=== PATIENT | female | born 1985 | race Caucasian/White ===

== ENCOUNTER 2019-11-22 01:35 | Observation (INO) | payer OTHER ==
[~2019-11-22] VITALS: Ht 167.6 cm; Wt 127.0 kg
--- OUTSIDE RECORDS SUMMARY | ~2019-11-22 | XMS | Encounter Summary ---
Demographics + + + | Address | [address] | | | [place] [address] | + + + | Home Phone | | + + + | Preferred Language | Unknown | + + + | Marital Status | | + + + | Lutheran Affiliation | Unknown | + + + | Race | Unknown | + + + | Ethnic Group | Unknown | + + + Author + + + | Author | [facility] | | | and [place] | + + + | Organization | [facility] | | | and [place] | + + + | Address | Unknown | + + + | Phone | Unavailable | + + + Support + + + + + | Name | Relationship | Address | Phone | + + + + + | Aime Rodrigues | ECON | [address] | | | | | , [place] | | | | | [address] | | + + + + + | Ritchie Ozuna | ECON | Unknown | | + + + + + Care Team Providers + +------+ + | Care Vault Mechanic Name | Role | Phone | + +------+ + | Bernard David DO | PCP | | + +------+ + Encounter Details +--------+ + + + + | Date | Type | Department | Care Team | Description | +--------+ + + + + | 10/01/ | Orders Only | [facility] | [facility] | | | 2017 | | [facility] | MD Emer[address] | | | | | [address] | [address] | | | | | [address] [place], [place] | [place] [address] | | | | | [address] | [phone] | | | | | [phone] | | | +--------+ + + + + Social History + +-------+ +--------+------+ | Tobacco Use | Types | Packs/Day | Years | Date | | | | | Used | | + +-------+ +--------+------+ | Never Assessed | | | | | + +-------+ +--------+------+ + + + | Sex Assigned at | Date Recorded | | | | + + + | Not on file | | + + + + + + + | Job Start Date | Occupation | Industry | + + + + | Not on file | Not on file | Not on file | + + + + + + + + | Travel History | Travel Start | Travel End | + + + + + + | No recent travel history available. | + + documented as of this encounter Plan of Treatment Not on filedocumented as of this encounter Procedures + +--------+ + + + | Procedure Name | Priori | Date/Time | Associated Diagnosis | Comments | | | ty | | | | + +--------+ + + + | US OB FOLLOW UP | Routin | 10/01/2017 | | Results for this | | TRANSABDOMINAL | e | 4:41 PM | | procedure are in the | | | | PDT | | results section. | + +--------+ + + + documented in this encounter Results US OB Follow Up Transabdominal (10/01/2017 4:41 PM PDT) + + | Specimen | + + | | + + + + + | Narrative | Performed At | + + + | For All Ultrasounds performed at [facility] : | | | The interpretation may be found under the Media tab within Chart | | | review of a patient's chart approximately 3 days after the exam date. | | | The report will be under the heading of M Ultrasound If you | | | are not able to find the dictation under the media tab, please | | | contact the Chief Clinical Officer at [phone] nop [phone]. | | + + + + + | Procedure Note | + + | Skyler, Rad Conversion - 02/04/2019 5:18 PM PDT For All Ultrasounds performed | | at [facility] : The interpretation may be found under the Media tab within | | Chart review ofa patient's chart approximately 3 days after the exam date. The | | reportwill be under the heading of M Ultrasound If you are not able to find the | | dictation under the media tab, pleasecontact the Chief Clinical Officer at [phone] ext | | [phone]. | |If you are not able to find the dictation under the media tab, please | |contact the Chief Clinical Officer at [phone] yvh [phone]. | | | + + documented in this encounter Visit Diagnoses Not on filedocumented in this encounter"
--- OUTSIDE RECORDS SUMMARY | ~2019-11-22 | XMS | Encounter Summary ---
Demographics + + + | Address | [address] | | | [place] [address] | + + + | Home Phone | | + + + | Preferred Language | Unknown | + + + | Marital Status | | + + + | Roman Catholic Affiliation | Unknown | + + + | Race | Unknown | + + + | Ethnic Group | Unknown | + + + Author + + + | Author | [facility] | | | and [place] | + + + | Organization | [facility] | | | and [place] | [...] , [place] | | | | | [address] | | + + + + + | Ritchie Ozuna | ECON | Unknown | | + + + + + Care Team Providers + +------+ + | Care Electrical Foreman Name | Role | Phone | + +------+ + | Bernard David DO | PCP | | + +------+ + Reason for Visit + + + | Reason | Comments | + + + | Medication Refill | | + + + Encounter Details +--------+--------+ + + + | Date | Type | Department | Care Team | Description | +--------+--------+ + + + | 10/05/ | Refill | [facility] | Marbella Baker, | Medication Refill | | 2019 | | [facility] | [facility] | | | | | [facility] [address] | | | | | | [address] [facility] [place], | | | | | | [place] [address] | | | | | | [phone] | | | +--------+--------+ + + + Social History + +-------+ +--------+------+ | Tobacco Use | Types | Packs/Day | Years | Date | | | | | Used | | + +-------+ +--------+------+ | Never Smoker | | | | | + +-------+ +--------+------+ + +---+---+---+ | Smokeless Tobacco: | | | | | Never Used | | | | + +---+---+---+ + + +---------+ + | Alcohol Use | Drinks/Week | oz/Week | Comments | + + +---------+ + | No | 1 Glasses of wine | 1.0 | Social Drinker | + + +---------+ + + + + | Sex Assigned at [...] Not on filedocumented as of this encounter Visit Diagnoses + + | Diagnosis | + + | Adjustment disorder with mixed anxiety and depressed mood | + + documented in this encounter"
--- OUTSIDE RECORDS SUMMARY | ~2019-11-22 | XMS | Encounter Summary ---
Demographics + + + | Address | [address] | | | [place] [address] | + + + | Home Phone | | + + + | Preferred Language | Unknown | + + + | Marital Status | | + + + | Mu-Ism Affiliation | Unknown | + + + | Race | Unknown | + + + | Ethnic Group | Unknown | + + + Author + + + | Author | [facility] | | | and [place] | + + + | Organization | [facility] | | | and [place] | + + + | Address | Unknown | + + + | Phone | Unavailable | + + + Support + + + + + | Name | Relationship | Address | Phone | + + + + + | Aime Rodrigues | ECON | [address] | | | | | , [place] | | | | | [address] | | + + + + + | Ritchie Ozuna | ECON | Unknown | | + + + + + Care Team Providers + +------+ + | Care Occasional Babysitter Name | Role | Phone | + +------+ + | Bernard David DO | PCP | | + +------+ + Reason for Visit + + + | Reason | Comments | + + + | Chest Pain | | + + + Encounter Details +--------+ + + + + | Date | Type | Department | Care Team | Description | +--------+ + + + + | 05/31/ | Emergency | [facility] | Robby Sanchez, | Atypical chest pain | | 2018 | | [facility] | MD [address] | (Primary Dx) | | | | CENTER [address] | [facility] | | | | | [place] | [place] [address] | | | | | [address] | [phone] | | | | | [phone] | | | +--------+ + + + [...] + + documented as of this encounter Last Filed Vital Signs + + + + + | Vital Sign | Reading | Time Taken | Comments | + + + + + | Blood Pressure | 130/63 | 05/31/2018 5:29 AM | | | | | PST | | + + + + + | Pulse | 73 | 05/31/2018 5:28 AM | | | | | PST | | + + + + + | Temperature | - | - | | + + + + + | Respiratory Rate | 19 | 05/31/2018 5:28 AM | | | | | PST | | + + + + + | Oxygen Saturation | 97% | 05/31/2018 5:28 AM | | | | | PST | | + + + + + | Inhaled Oxygen | - | - | | | Concentration | | | | + + + + + | Weight | 127 kg (280 lb) | 05/31/2018 4:06 AM | | | | | PST | | + + + + + | Height | 165.1 cm (5' 5") | 05/31/2018 4:06 AM | | | | | PST | | + + + + + | Body Mass Index | 46.59 | 05/31/2018 4:06 AM | | | | | PST | | + + + + + documented in this encounter Discharge Instructions Instructions Robby Sanchez MD - 05/31/2018Scheduled ibuprofen for 5 days Follow-up with primary care Resume your usual medications Return if worse AttachmentsThe following attachments cannot be sent through Care Everywhere.Chest Pain, Non cardiac ([place]an)documented in this encounter Medications at Time of Discharge + + + +---------+ + + | Medication | Sig | Dispensed | Refills | Start | End Date | | | | | | Date | | + + + +---------+ + + | doxylamine | Take 25 mg by mouth | | 0 | | | | (UNISOM) 25 mg | nightly as needed. | | | | | | tablet | | | | | | + + + +---------+ + + | labetalol | Take 300 mg by mouth | | 0 | | | | (NORMODYNE) 300 MG | 2 times daily. | | | | | | tablet | | | | | | + + + +---------+ + + | metFORMIN | Take 1 tablet by | 60 | 1 | 11/30/19 | | | (GLUCOPHAGE) 500 mg | mouth 2 times daily | tablet | | 18 | | | tablet | (with breakfast & | | | | | | | dinner). | | | | | + + + +---------+ + + | ALPRAZolam (XANAX) | Take 0.5-1 tablets | 30 | 0 | 04/13/20 | | | 0.5 mg | by mouth Daily as | tablet | | 18 | 9 | | tabletIndications: | needed for Anxiety. | | | | | | Adjustment disorder | | | | | | | with mixed anxiety | | | | | | | and depressed mood | | | | | | + + + +---------+ + + | azithromycin | Take 2 tablets by | 6 | 0 | 04/23/20 | | | (ZITHROMAX) 250 mg | mouth on day 1, and | tablet | | 18 | 9 | | tablet | 1 tablet by mouth | | | | | | | every day | | | | | + + + +---------+ + + | FALMINA 0.1-20 | | | 0 | 05/23/20 | | | MG-MCG per tablet | | | | 18 | 9 | + + + +---------+ + + | ibuprofen | Take 1 tablet by | 20 | 0 | 05/31/20 | | | (ADVIL,MOTRIN) 600 | mouth every 6 hours | tablet | | 18 | 8 | | MG tablet | for 5 days. | | | | | + + + +---------+ + + | pseudoePHEDrine | Take 1 tablet by | 40 | 0 | 04/23/20 | | | (SUDOGEST) 30 mg | mouth 4 times daily | tablet | | 18 | 9 | | tablet | as needed for | | | | | | | Congestion. | | | | | + + + +---------+ + + documented as of this encounter Plan of Treatment Not on filedocumented as of this encounter Procedures + +--------+ + + + | Procedure Name | Priori | Date/Time | Associated Diagnosis | Comments | | | ty | | | | + +--------+ + + + | XR CHEST AP PORTABLE | STAT | 05/31/2018 | | Results for this | | | | 4:35 AM | | procedure are in the | | | | PST | | results section. | + +--------+ + + + | TROPONIN I | STAT | 05/31/2018 | | Results for this | | | | 4:27 AM | | procedure are in the | | | | PST | | results section. | + +--------+ + + + | D-DIMER | STAT | 05/31/2018 | | Results for this | | | | 4:27 AM | | procedure are in the | | | | PST | | results section. | + +--------+ + + + | CBC WITH | STAT | 05/31/2018 | | Results for this | | DIFFERENTIAL | | 4:27 AM | | procedure are in the | | | | PST | | results section. | + +--------+ + + + | BASIC METABOLIC | STAT | 05/31/2018 | | Results for this | | PANEL | | 4:27 AM | | procedure are in the | | | | PST | | results section. | + +--------+ + + + | ECG 12 LEAD | STAT | 05/31/2018 | | Results for this | | | | 4:01 AM | | procedure are in the | | | | PST | | results section. | + +--------+ + + + documented in this encounter Results XR Chest AP Portable (05/31/2018 4:35 AM PST) + + | Specimen | + + | | + + + + + | Narrative | Performed At | + + + | XR CHEST AP PORTABLE 05/31/2018 4:15 AM HISTORY: CHEST PAIN. | [facility] | | COMPARISON: None. Findings: The bilateral lungs are clear with | | | no evidence for pleural effusion or pneumothorax. Heart size is | | | within normal limits. Pulmonary vasculature is within normal limits. | | | Aorta is normal. Mediastinum is unremarkable. No acute osseous or | | | soft tissue abnormality identified. IMPRESSION - No acute | | | intrathoracic abnormality identified. Dictated and Signed by: Michael | | | MD Jim Electronically signed: 05/31/2018 12:30 PM | | + + + + + | Procedure Note | + + | Skyler, Rad Results In - 05/31/2018 12:33 PM PST XR CHEST AP PORTABLE 05/31/2018 4:15 AM | | | | HISTORY: CHEST PAIN. | | | | COMPARISON: None. | | | | Findings: | | The bilateral lungs are clear with no evidence for pleural effusion or | | pneumothorax. Heart size is within normal limits. Pulmonary vasculature is | | within normal limits. Aorta is normal. Mediastinum is unremarkable. No acute | | osseous or soft tissue abnormality identified. | | | | IMPRESSION - | | No acute intrathoracic abnormality identified. | | | | Dictated and Signed by: Michael Fernandez MD | | Electronically signed: 05/31/2018 12:30 PM | + + + +---------+ + + | Performing | Address | City/State/Zipcode | Phone Number | | Organization | | | | + +---------+ + + | [facility] | | | | + +---------+ + + Troponin I (05/31/2018 4:27 AM PST) + + + + + + | Component | Value | Ref Range | Performed | Pathologist | | | | | At | Signature | + + + + + + | Troponin I | 0.01Comment: Reference | <0.06 ng/mL | [facility] | | | | Ranges:0.00-0.06 = | | [facility] | | | | NORMAL>0.06 = | | MEDICAL | | | | SUSPICIOUS FOR | | CENTER - | | | | MYOCARDIAL DAMAGE NOTE: | | LABORATORY | | | | Values greater than 0.50 | | | | | | ng/mL have been shown | | | | | | to be strongly | | | | | | associated with acute | | | | | | myocardial infarction. | | | | | | The [employer] | | | | | | Cardiology (ACC) | | | | | | recommends a decision | | | | | | limit of 0.06 ng/mL for | | | | | | this assay. Results | | | | | | greater than 0.06 can | | | | | | reflect a pre-infarct | | | | | | acute coronary syndrome, | | | | | | but can also reflect | | | | | | myocardial necrosis or | | | | | | injury that is not due | | | | | | to coronary artery | | | | | | disease. Some of these | | | | | | causes are sepsis, | | | | | | hypocolemia, atrial | | | | | | fibrillation, heart | | | | | | failure, pulmonary | | | | | | embolism, myocarditis, | | | | | | myocardial contusion, | | | | | | and renal failure. The | | | | | | diagnosis of myocardial | | | | | | infarction should be | | | | | | based on a combination | | | | | | of the patient's | | | | | | clinical presentation | | | | | | and the clinical | | | | | | laboratory test results | | | | | | (especially serial | | | | | | troponin levels). | | | | + + + + + + + + | Specimen | + + | Blood | + + + + + + + | Performing | Address | City/State/Zipcode | Phone Number | | Organization | | | | + + + + + | [facility] | [address] | [place] | [phone] | | [facility] | | [address] | | | - LABORATORY | | | | + + + + + D-Dimer (05/31/2018 4:27 AM PST) + + + + + + | Component | Value | Ref Range | Performed | Pathologist | | | | | At | Signature | + + + + + + | D-Dimer | 0.31Comment: This | <=0.50 ug/ml | [facility] | | | Quantitativ | quantitative D-Dimer | | [facility] | | | e | assay has been evaluated | | MEDICAL | | | | for screening for | | CENTER - | | | | venous thrombotic | | LABORATORY | | | | disease, and may be | | | | | | useful in ruling out, | | | | | | but not ruling in | | | | | | disease. Values less | | | | | | than 0.50 ug/mL FEU | | | | | | (Fibrinogen Equivalent | | | | | | Units) have a negative | | | | | | predictive value of | | | | | | approximately 95% for | | | | | | ruling out large | | | | | | pulmonary emboli or | | | | | | proximal deep vein | | | | | | thrombosis. Distal DVT | | | | | | are not excluded. An | | | | | | elevated D-dimer can be | | | | | | present in patients with | | | | | | liver disease, | | | | | | , eclampsia, | | | | | | heart disease and some | | | | | | cancers among other | | | | | | conditions. The presence | | | | | | of rheumatoid factor at | | | | | | a level >50 IU/mL may | | | | | | falsely elevate the | | | | | | determined D-dimer | | | | | | levels. | | | | + + + + + + + + | Specimen | + + | Blood | + + + + + + + | Performing | Address | City/State/Zipcode | Phone Number | | Organization | | | | + + + + + | [facility] | [address] | [place] | [phone] | | [facility] | | [address] | | | - LABORATORY | | | | + + + + + Basic Metabolic Panel (05/31/2018 4:27 AM PST) + + + + + + | Component | Value | Ref Range | Performed | Pathologist | | | | | At | Signature | + + + + + + | Na | 136 | 136 - 149 | [facility] | | | | | mmol/L | [facility] | | | | | | MEDICAL | | | | | | CENTER - | | | | | | LABORATORY | | + + + + + + | K | 4.0 | 3.5 - 5.1 | [facility] | | | | | mmol/L | [facility] | | | | | | MEDICAL | | | | | | CENTER - | | | | | | LABORATORY | | + + + + + + | Cl | 105 | 98 - 109 mmol/L | [facility] | | | | | | [facility] | | | | | | MEDICAL | | | | | | CENTER - | | | | | | LABORATORY | | + + + + + + | CO2 | 23 (L) | 24 - 31 mmol/L | [facility] | | | | | | [facility] | | | | | | MEDICAL | | | | | | CENTER - | | | | | | LABORATORY | | + + + + + + | Anion Gap | 8 | 3 - 16 mmol/L | [facility] | | | | | | [facility] | | | | | | MEDICAL | | | | | | CENTER - | | | | | | LABORATORY | | + + + + + + | Glucose | 158 (H) | 70 - 109 mg/dL | [facility] | | | | | | [facility] | | | | | | MEDICAL | | | | | | CENTER - | | | | | | LABORATORY | | + + + + + + | BUN | 11 | 7 - 18 mg/dL | [facility] | | | | | | [facility] | | | | | | MEDICAL | | | | | | CENTER - | | | | | | LABORATORY | | + + + + + + | Creatinine | 0.72 | 0.60 - 1.30 | [facility] | | | | | mg/dL | [facility] | | | | | | MEDICAL | | | | | | CENTER - | | | | | | LABORATORY | | + + + + + + | eGFR if not | >60Comment: GLOMERULAR | >=60 | [facility] | | | | FILTRATION | mL/min/1.73m2 | [facility] | | | [facility] | RATE,ESTIMATED | | MEDICAL | | | | mL/min/1.31w6Nklj than | | CENTER - | | | | 60 Chronic kidney | | LABORATORY | | | | disease,if found over a | | | | | | 3-month period.Less than | | | | | | 15 Kidney failureFor | | | | | | | | | | | | Americans,multiply the | | | | | | calculated GFR by 1.21. | | | | | | | | | | + + + + + + | Calcium | 9.0 | 8.3 - 10.5 | [facility] | | | | | mg/dL | [facility] | | | | | | MEDICAL | | | | | | CENTER - | | | | | | LABORATORY | | + + + + + + | BUN/Creatin | 15.3 | | [facility] | | | ine Ratio | | | [facility] | | | | | | MEDICAL | | | | | | CENTER - | | | | | | LABORATORY | | + + + + + + + + | Specimen | + + | Blood | + + + + + + + | Performing | Address | City/State/Zipcode | Phone Number | | Organization | | | | + + + + + | [facility] | [address] | [place] | [phone] | | [facility] | | [address] | | | - LABORATORY | | | | + + + + + CBC with Differential (05/31/2018 4:27 AM PST) + + + + + + | Component | Value | Ref Range | Performed | Pathologist | | | | | At | Signature | + + + + + + | WBC | 12.8 (H) | 4.0 - 11.0 K/uL | [facility] | | | | | | [facility] | | | | | | MEDICAL | | | | | | CENTER - | | | | | | LABORATORY | | + + + + + + | RBC | 4.91 | 3.70 - 5.20 | [facility] | | | | | M/uL | [facility] | | | | | | MEDICAL | | | | | | CENTER - | | | | | | LABORATORY | | + + + + + + | Hemoglobin | 12.4 | 11.5 - 16.0 | [facility] | | | | | g/dL | [facility] | | | | | | MEDICAL | | | | | | CENTER - | | | | | | LABORATORY | | + + + + + + | Hematocrit | 39.2 | 34.0 - 47.0 % | [facility] | | | | | | [facility] | | | | | | MEDICAL | | | | | | CENTER - | | | | | | LABORATORY | | + + + + + + | MCV | 79.8 (L) | 83.0 - 101.0 fL | [facility] | | | | | | [facility] | | | | | | MEDICAL | | | | | | CENTER - | | | | | | LABORATORY | | + + + + + + | MCH | 25.3 (L) | 28.0 - 35.0 pg | [facility] | | | | | | [facility] | | | | | | MEDICAL | | | | | | CENTER - | | | | | | LABORATORY | | + + + + + + | MCHC | 31.6 (L) | 32.0 - 36.0 | [facility] | | | | | g/dL | [facility] | | | | | | MEDICAL | | | | | | CENTER - | | | | | | LABORATORY | | + + + + + + | RDW-CV | 13.7 | <15.0 % | [facility] | | | | | | [facility] | | | | | | MEDICAL | | | | | | CENTER - | | | | | | LABORATORY | | + + + + + + | RDW-SD | 39.7 | 35.1 - 46.3 fL | [facility] | | | | | | [facility] | | | | | | MEDICAL | | | | | | CENTER - | | | | | | LABORATORY | | + + + + + + | Platelet | 301 | 140 - 440 K/uL | [facility] | | | Count | | | [facility] | | | | | | MEDICAL | | | | | | CENTER - | | | | | | LABORATORY | | + + + + + + | MPV | 10.9 | 6.5 - 12.4 fL | [facility] | | | | | | [facility] | | | | | | MEDICAL | | | | | | CENTER - | | | | | | LABORATORY | | + + + + + + | % | 68.3 | 45.0 - 82.0 % | [facility] | | | Neutrophils | | | [facility] | | | | | | MEDICAL | | | | | | CENTER - | | | | | | LABORATORY | | + + + + + + | % | 21.7 | 20.0 - 45.0 % | [facility] | | | Lymphocytes | | | [facility] | | | | | | MEDICAL | | | | | | CENTER - | | | | | | LABORATORY | | + + + + + + | % Monocytes | 6.2 | 4.0 - 12.0 % | [facility] | | | | | | [facility] | | | | | | MEDICAL | | | | | | CENTER - | | | | | | LABORATORY | | + + + + + + | % | 2.9 | 0.0 - 5.0 % | [facility] | | | Eosinophils | | | [facility] | | | | | | MEDICAL | | | | | | CENTER - | | | | | | LABORATORY | | + + + + + + | % Basophils | 0.5 | 0.0 - 1.0 % | [facility] | | | | | | [facility] | | | | | | MEDICAL | | | | | | CENTER - | | | | | | LABORATORY | | + + + + + + | % Immature | 0.4Comment: For | 0.0 - 0.4 % | [facility] | | | Granulocyte | patients, use the | | [facility] | | | s | special reference ranges | | MEDICAL | | | | listed below. | | CENTER - | | | | | | LABORATORY | | + + + + + + | Absolute | 8.73 (H) | 1.80 - 8.50 | [facility] | | | Neutrophils | | K/uL | [facility] | | | | | | MEDICAL | | | | | | CENTER - | | | | | | LABORATORY | | + + + + + + | Absolute | 2.78 | 0.60 - 3.20 | [facility] | | | Lymphocytes | | K/uL | [facility] | | | | | | MEDICAL | | | | | | CENTER - | | | | | | LABORATORY | | + + + + + + | Absolute | 0.79 | 0.00 - 1.00 | [facility] | | | Monocytes | | K/uL | [facility] | | | | | | MEDICAL | | | | | | CENTER - | | | | | | LABORATORY | | + + + + + + | Absolute | 0.37 | 0.00 - 0.40 | [facility] | | | Eosinophils | | K/uL | [facility] | | | | | | MEDICAL | | | | | | CENTER - | | | | | | LABORATORY | | + + + + + + | Absolute | 0.07 | 0.00 - 0.10 | [facility] | | | Basophils | | K/uL | [facility] | | | | | | MEDICAL | | | | | | CENTER - | | | | | | LABORATORY | | + + + + + + | Absolute | 0.05 (H)Comment: For | 0.00 - 0.03 | [facility] | | | Immature | patients, use | K/uL | [facility] | | | Granulocyte | the special reference | | MEDICAL | | | s | ranges listed below. | | CENTER - | | | | | | LABORATORY | | + + + + + + | % nRBC | 0 | 0 - 2 per 100 | [facility] | | | | | WBC's | [facility] | | | | | | MEDICAL | | | | | | CENTER - | | | | | | LABORATORY | | + + + + + + | Absolute | 0.00 | 0.00 - 0.01 | [facility] | | | nRBC | | K/uL | [facility] | | | | | | MEDICAL | | | | | | CENTER - | | | | | | LABORATORY | | + + + + + + + + | Specimen | + + | Blood | + + + + + | Narrative | Performed At | + + + | IMMATURE GRANULOCYTES - For patients, use the following | [facility] | | reference ranges: Trim. Absolute (K/uL) Percentage (%) | [facility] | | 1st 0.003-0.091 K/uL 0.0-0.9% 2nd 0.007-0.247 K/uL | MEDICAL CENTER | | 0.1-2.0% 3rd 0.018-0.456 K/uL 0.1-2.0% | - LABORATORY | + + + + + + + + | Performing | Address | City/State/Zipcode | Phone Number | | Organization | | | | + + + + + | [facility] | [address] | [place] | [phone] | | [facility] | | [address] | | | - LABORATORY | | | | + + + + + ECG 12 lead (05/31/2018 4:01 AM PST) + + + + + + | Component | Value | Ref Range | Performed | Pathologist | | | | | At | Signature | + + + + + + | VENTRICULAR | 87 | BPM | [facility] | | | RATE EKG | | | | | + + + + + + | ATRIAL RATE | 87 | BPM | [facility] | | + + + + + + | P-R | 146 | ms | [facility] | | | INTERVAL | | | | | + + + + + + | QRS | 92 | ms | [facility] | | | DURATION | | | | | + + + + + + | Q-T | 374 | ms | [facility] | | | INTERVAL | | | | | + + + + + + | Q-T | 450 | ms | [facility] | | | INTERVAL | | | | | | (CORRECTED) | | | | | + + + + + + | P WAVE AXIS | 38 | degrees | [facility] | | + + + + + + | QRS AXIS | 64 | degrees | [facility] | | + + + + + + | T AXIS | 45 | degrees | [facility] | | + + + + + + | INTERPRETAT | Normal sinus | | [facility] | | | ION TEXT | rhythmNormal ECGNo | | | | | | previous ECGs | | | | | | availableConfirmed by | | | | | | MELANIE WEISS MD ([id number]) | | | | | | on 05/31/2018 8:29:21 AM | | | | | | | | | | + + + + + + + + | Specimen | + + | | + + + + + | Narrative | Performed At | + + + | | | + + + + +---------+ + + | Performing | Address | City/State/Zipcode | Phone Number | | Organization | | | | + +---------+ + + | [facility] | | | | + +---------+ + + documented in this encounter Visit Diagnoses + + | Diagnosis | + + | Atypical chest pain - Primary Other chest pain | + + documented in this encounter
--- OUTSIDE RECORDS SUMMARY | ~2019-11-22 | XMS | Clinical Summary ---
Demographics + + + | Address | [address] | | | [place] [address] | + + + | Home Phone | | + + + | Preferred Language | Unknown | + + + | Marital Status | | + + + | Protestant Affiliation | Unknown | + + + | Race | Unknown | + + + | Ethnic Group | Unknown | + + + Author + + + | Author | [facility] | | | and Arielana | + + + | Organization | [facility] | | | and [place] | + + + | Address | Unknown | + + + | Phone | Unavailable | + + + Support + + + + + | Name | Relationship | Address | Phone | + + + + + | Aime Rodrigues | ECON | [address] | | | | | [place], [place] | | | | | [address] | | + + + + + | Ritchie Ozuna | ECON | Unknown | | + + + + + Care Team Providers + +------+ + | Care Anodize Machine Operator Name | Role | Phone | + +------+ + | Bernard David DO | PCP | | + +------+ + Allergies + + + + + + | Active Allergy | Reactions | Severity | Noted | Comments | | | | | Date | | + + + + + + | Trazodone | Other (See Comments) | | 11/27/19 | Nightmares | | | | | 18 | | + + + + + + Medications + + + +---------+------+------+-------+ | Medication | Sig | Dispensed | Refills | Star | End | Statu | | | | | | t | Date | s | | | | | | Date | | | + + + +---------+------+------+-------+ | labetalol | Take 300 mg by mouth | | 0 | | | Activ | | (NORMODYNE) 300 MG | 2 times daily. | | | | | e | | tablet | | | | | | | + + + +---------+------+------+-------+ | metFORMIN | Take 1 tablet by | 60 | 1 | 06/1 | | Activ | | (GLUCOPHAGE) 500 mg | mouth 2 times daily | tablet | | 6/20 | | e | | tablet | (with breakfast & | | | 18 | | | | | dinner). | | | | | | + + + +---------+------+------+-------+ | doxylamine | Take 25 mg by mouth | | 0 | | | Activ | | (UNISOM) 25 mg | nightly as needed. | | | | | e | | tablet | | | | | | | + + + +---------+------+------+-------+ | cyclobenzaprine | Take 1 tablet by | 30 | 1 | 03/0 | | Activ | | (FLEXERIL) 5 MG | mouth nightly as | tablet | | 8/20 | | e | | tablet | needed (TMJ). | | | 19 | | | + + + +---------+------+------+-------+ | ALPRAZolam (XANAX) | Take 0.5-1 tablets | 30 | 0 | 04/2 | | Activ | | 0.5 mg | by mouth Daily as | tablet | | 2/20 | | e | | tabletIndications: | needed for Anxiety. | | | 19 | | | | Adjustment disorder | | | | | | | | with mixed anxiety | | | | | | | | and depressed mood | | | | | | | + + + +---------+------+------+-------+ | cyclobenzaprine | | | 0 | 05/2 | | Activ | | (FLEXERIL) 10 mg | | | | 2/20 | | e | | tablet | | | | 19 | | | + + + +---------+------+------+-------+ | fluconazole | | | 0 | 03/2 | | Activ | | (DIFLUCAN) 150 mg | | | | 7/20 | | e | | tablet | | | | 19 | | | + + + +---------+------+------+-------+ | oxybutynin | | | 0 | 05/0 | | Activ | | (DITROPAN XL) 5 mg | | | | 7/20 | | e | | 24 hr tablet | | | | 19 | | | + + + +---------+------+------+-------+ | | | | 0 | 02/1 | | Activ | | oxyCODONE-acetaminop | | | | 3/20 | | e | | hen (PERCOCET) 5-325 | | | | 19 | | | | mg per tablet | | | | | | | + + + +---------+------+------+-------+ | traMADol (ULTRAM) | | | 0 | 04/0 | | Activ | | 50 mg tablet | | | | 5/20 | | e | | | | | | 19 | | | + + + +---------+------+------+-------+ | escitalopram | | | 0 | 07/2 | | Activ | | (LEXAPRO) 10 mg | | | | 5/20 | | e | | tablet | | | | 19 | | | + + + +---------+------+------+-------+ Active Problems + + + | Problem | Noted Date | + + + | Adjustment disorder with mixed anxiety and depressed mood | 07/17/2018 | + + + | Term - RADHA 09 Dec 2017 | 11/26/2017 | + + + | -induced hypertension in third trimester | 11/26/2017 | + + + | Anemia during in third trimester | 11/26/2017 | + + + | Cubital tunnel syndrome on right | | + + + | Diabetes mellitus type 2, controlled, without complications | | + + + | Esophageal reflux | | + + + | Essential hypertension | | + + + | Cervical facet syndrome | | + + + | Hidradenitis suppurativa | | + + + | Hyperlipidemia | | + + + | Nonallopathic lesion of thoracic region | | + + + | Obesity | | + + + | Insomnia | | + + + Resolved Problems + + + + | Problem | Noted | Resolved | | | Date | Date | + + + + | Failure to progress in labor | 11/27/19 | | | | 18 | 9 | + + + + | Gestational diabetes mellitus (GDM) in third trimester | 11/27/19 | | | | 18 | 9 | + + + + Encounters +--------+ + + + + | Date | Type | Specialty | Care Team | Description | +--------+ + + + + | 09/01/ | Orders Only | Primary Care | Bernard David | Controlled type 2 | | 2020 | | | E, DO | diabetes mellitus | | | | | | without | | | | | | complication, | | | | | | without long-term | | | | | | current use of | | | | | | insulin (HCC) | | | | | | (Primary Dx) | +--------+ + + + + from Last 3 Months Immunizations + + + + | Name | Administration Dates | Next Due | + + + + | INFLUENZA QUADR | 03/17/2018 | | | W/PRES | | | | (PED/ADOL/ADULT) | | | | MULTIDOSE | | | + + + + | MMR, 2 DOSE | 11/26/2017 (Deferred: Other - immune) | | | (PED/ADULT) | | | + + + + | TDAP, (ADOL/ADULT) | 11/26/2017 (Deferred: Other - had during | | | | ), 10/09/2017 | | + + + + Family History + + +------+ + | Medical History | Relation | Name | Comments | + + +------+ + | Colon cancer | Father | | | + + +------+ + | Kidney cancer | Father | | | + + +------+ + | Thyroid cancer | Father | | | + + +------+ + | Thyroid disease | Father | | | + + +------+ + | Cancer | Maternal | | Lung | | | Grandmoth | | | | | er | | | + + +------+ + | Cancer | Paternal | | Lung | | | Grandmoth | | | | | er | | | + + +------+ + | Cancer | Sister | | cervical | + + +------+ + + +------+--------+ + | Relation | Name | Status | Comments | + +------+--------+ + | Father | | Alive | | + +------+--------+ + | Maternal Grandmother | | | | + +------+--------+ + | Paternal Grandmother | | | | + +------+--------+ + | Sister | | | | + +------+--------+ + Social History + +-------+ +--------+------+ | Tobacco Use | Types | Packs/Day | Years | Date | | | | | Used | | + +-------+ +--------+------+ | Never Smoker | | | | | + +-------+ +--------+------+ + +---+---+---+ | Smokeless Tobacco: | | | | | Never Used | | | | + +---+---+---+ + + | Tobacco Cessation: Counseling Given: No | + + + + +---------+ + | Alcohol Use [...] recent travel history available. | + + Last Filed Vital Signs + + + + + | Vital Sign | Reading | Time Taken | Comments | + + + + + | Blood Pressure | 130/80 | 07/17/2018 3:15 PM | | | | | PST | | + + + + + | Pulse | 91 | 07/17/2018 3:15 PM | | | | | PST | | + + + + + | Temperature | 36.7 C (98.1 F) | 04/13/2018 3:11 PM | | | | | PDT | | + + + + + | Respiratory Rate | 19 | 07/17/2018 3:15 PM | | | | | PST | | + + + + + | Oxygen Saturation | 98% | 07/17/2018 3:15 PM | | | | | PST | | + + + + + | Inhaled Oxygen | - | - | | | Concentration | | | | + + + + + | Weight | 128.2 kg (282 lb 9.6 | 07/17/2018 3:15 PM | | | | oz) | PST | | + + + + + | Height | 165.1 cm (5' 5") | 07/17/2018 3:15 PM | | | | | PST | | + + + + + | Body Mass Index | 47.03 | 07/17/2018 3:15 PM | | | | | PST | | + + + + + Plan of Treatment + + + + + | Health Maintenance | Due Date | Last Done | Comments | + + + + + | Vaccine: | | | | | Pneumococcal 19-64 | 1 | | | | (1 of 1 - PPSV23) | | | | + + + + + | Diabetic Eye Exam | | | | | | 3 | | | + + + + + | Diabetic Foot Exam | | | | | | 3 | | | + + + + + | Cervical Cancer | | | | | Screening (Pap) | 5 | | | + + + + + | Primary Care | | 07/17/2018, 04/13/2018 | | | Outreach (Intense | 9 | | | | Risk) | | | | + + + + + | Hemoglobin A1c | | 09/07/2018, 02/23/2018 | | | Screening | 9 | | | + + + + + | Microalbumin | | 02/23/2018, 02/23/2018 | | | Screening | 9 | | | + + + + + | Vaccine: Influenza | | 03/17/2018 | | | (Season Ended) | 0 | | | + + + + + | Vaccine: | | 10/09/2017 | | | Dtap/Tdap/Td (2 - | 8 | | | | Td) | | | | + + + + + Results Not on filefrom Last 3 Months Insurance + +--------+ +--------+ +---------+--------+ | Payer | Benefi | Subscriber | Effect | Phone | Address | Type | | | t Plan | ID | mar | | | | | | / | | Dates | | | | | | Group | | | | | | + +--------+ +--------+ +---------+--------+ | [employer] | [employer] | [id number] | 06/16/19 | [phone] | | PPO | | ADMIN | BCBS | 8 | 16-Pre | 3 | | | | | PPO | | sent | | | | + +--------+ +--------+ +---------+--------+ | [employer] | [employer] | [id number] | 06/16/19 | [phone] | | Indemn | | ADMIN | INDEMN | 8 | 16-Pre | 3 | | ity | | | ITY | | sent | | | | + +--------+ +--------+ +---------+--------+ + +--------+ +--------+ + + | Guarantor Name | Accoun | Relation to | Date | Phone | Billing Address | | | t Type | Patient | of | | | | | | | | | | + +--------+ +--------+ + + | Imelda Rodrigues | Person | Self [birth year] | [address] | | | al/Fam | | 1986 | [phone] | [place] [address] | | | reynaldo | | | 8 (Home) | | + +--------+ +--------+ + + | Imelda Rodrigues | Person | Self [birth year] | [address] | | | al/Fam | | 1986 | [phone] | [place] [address] | | | reynaldo | | | 8 (Home) | | | | | | | [phone] | | | | | | | 0 (Work) | | + +--------+ +--------+ + + Advance Directives + + + + + | Type | Date Recorded | Patient | Explanation | | | | Portfolio Strategist | | + + + + + | Power of | | | | | Bridge Manager | | | | + + + + + | Advance | 04/13/2018 | | | | Directive | 2:42 PM | | | + + + + + + + + + + | Code Status | Date | Date | Comments | | | Activated | Inactivated | | + + + + + | Full Code | 11/25/2017 | 11/26/2017 | | | | 6:22 AM | 8:48 AM | | + + + + +
--- OUTSIDE RECORDS SUMMARY | ~2019-11-22 | XMS | Encounter Summary ---
Demographics + + + | Address | [address] | | | [place] [address] | + + + | Home Phone | | + + + | Preferred Language | Unknown | + + + | Marital Status | | + + + | Sabianist Affiliation | Unknown | + + + | Race | Unknown | + + + | Ethnic Group | Unknown | + + + Author + + + | Author | [facility] | | | and Arielana | + + + | Organization | [facility] | | | and Arielana [...] , [place] | | | | | [address] | | + + + + + | Ritchie Ozuna | ECON | Unknown | | + + + + + Care Team Providers + +------+ + | Care Chief Dietitian Name | Role | Phone | + +------+ + | Bernard David DO | PCP | | + +------+ + Reason for Visit + + + | Reason | Comments | + + + | Diabetes Mellitus | | | Management | | + + + Encounter Details +--------+ + + + + | Date | Type | Department | Care Team | Description | +--------+ + + + + | 11/05/ | Telephone | [facility] | Mega Germain | Diabetes Mellitus | | 2019 | | [facility] | | Management | | | | [facility] [address] | | | | | | [address] [facility], | | | | | | [place] [address] | | | | | | [phone] | | | +--------+ + + + [...] filedocumented as of this encounter Visit Diagnoses Not on filedocumented in this encounter"
--- OUTSIDE RECORDS SUMMARY | ~2019-11-22 | XMS | Encounter Summary ---
Demographics + + + | Address | [address] | | | [place] [address] | + + + | Home Phone | | + + + | Preferred Language | Unknown | + + + | Marital Status | | + + + | Presybeterian Affiliation | Unknown | + + + | Race | Unknown | + + + | Ethnic Group | Unknown | + + + Author + + + | Author | [facility] | | | and Arielana | + + + | Organization | [facility] | | | and [place]elana | [...] , [place] | | | | | [address] | | + + + + + | Ritchie Ozuna | ECON | Unknown | | + + + + + Care Team Providers + +------+ + | Care Cigar Tobacco Rehandler Name | Role | Phone | + +------+ + | Bernard David DO | PCP | | + +------+ + Reason for Visit + + + | Reason | Comments | + + + | Diabetes Mellitus | Diabetes labs reminder | | Management | | + + + Encounter Details +--------+ + + + + | Date | Type | Department | Care Team | Description | +--------+ + + + + | 03/04/ | Telephone | [facility] | Bernard David | Diabetes Mellitus | | 2019 | | [facility] | E, DO [address] | Management (Diabetes | | | | [facility] [address] | [place] | labs reminder) | | | | [address] [facility], | [address] | | | | | [place] [address] | [phone] | | | | | [phone] | | | +--------+ + + + [...]
--- OUTSIDE RECORDS SUMMARY | ~2019-11-22 | XMS | Encounter Summary ---
Demographics + + + | Address | [address] | | | [place] [address] | + + + | Home Phone | | + + + | Preferred Language | Unknown | + + + | Marital Status | | + + + | Christianity Affiliation | Unknown | + + + | Race | Unknown | + + + | Ethnic Group | Unknown | + + + Author + + + | Author | [facility] | | | and Arielana | + + + | Organization | [facility] | | | and [place] [...] , [place] | | | | | [address] | | + + + + + | Ritchie Ozuna | ECON | Unknown | | + + + + + Care Team Providers + +------+ + | Care Engineering Design Manager Name | Role | Phone | + +------+ + | Bernard David DO | PCP | | + +------+ + Reason for Visit + + + | Reason | Comments | + + + | Follow-up | Follow up on medications, pt reports not going psychiatry she is | | | doing much better and is currently looking for other employment | + + + Encounter Details +--------+---------+ + + + | Date | Type | Department | Care Team | Description | +--------+---------+ + + + | 07/17/ | Office | [facility] | Bernard David | Adjustment disorder | | 2019 | Visit | [facility] | E, DO [address] | with mixed anxiety | | | | [facility] [address] | [place], [place] | and depressed mood | | | | [address] [place], | [address] | | | | | [place] [address] | [phone] | | | | | [phone] | | | +--------+---------+ + + + Social History + +-------+ [...] + + + documented in this encounter Patient Instructions Patient Instructions Mega Germain - 07/17/2018 4:00 PM PST-Continue taking Alprazolam as needed -Continue looking to lessen your stress documented in this encounter Progress Notes Kandi Dimas CC CMA - 07/17/2018 4:00 PM PSTImelda Rodrigues presents today with [facility] Complaint of: Follow up on medications, pt reports not going psychiatry she is doing muc h better and is currently looking for other employment. Current medications verified with her at time of visit. Pt currently shows no s/s of distress, shortness of breath. Vital signs: BP 130/80 | Pulse 91 | Resp 19 | Ht 1.651 m (5' 5") | Wt 128.2 kg (282 lb 9.6 oz) | SpO2 98% | BMI 47.03 kg/m Labs Obtained per protocol: None. Verbal Report given to: DO. Kandi Marroquin CC CMA Bernard Sanders DO - 07/17/2018 4:00 PM PST Patient ID: Imelda Rodrigues is a 33 y.o. year old female Chief Complaint: No chief complaint on file. Assessment Adjustment disorder with mixed anxiety and depressed mood Plan Doing well! -Continue taking Alprazolam as needed -Continue looking to lessen your stress -Take OTC Calcium 30 minute visit with > 50% time spent in counseling regarding adjustment disorder. Subjective: LEONEL Segura presents to the clinic today for a follow up on adjustment disorder, starting Xanax. She is doing better. She is looking for a new job. She is using the Alprazolam 0.50 mg zaida y lately due to stress from work. She is having to mentally and physically take a step back because she is being required to do more then her job title requires. She is tolerating the Alprazolam better. She did not go to counseling. When she went to the ER she was having chest pain for 3-4 days prior, they advised her it w as probably strain muscles. She broke a tooth. She is scheduled with her dentist. Current Outpatient Prescriptions Medication Sig Dispense Refill ALPRAZolam (XANAX) 0.5 mg tablet Take 0.5-1 tablets by mouth Daily as needed for Anxiet y. 30 tablet 0 azithromycin (ZITHROMAX) 250 mg tablet Take 2 tablets by mouth on day 1, and 1 tablet b y mouth every day 6 tablet 0 doxylamine (UNISOM) 25 mg tablet Take 25 mg by mouth nightly as needed. FALMINA 0.1-20 MG-MCG per tablet labetalol (NORMODYNE) 300 MG tablet Take 300 mg by mouth 2 times daily. metFORMIN (GLUCOPHAGE) 500 mg tablet Take 1 tablet by mouth 2 times daily (with breakfa st & dinner). 60 tablet 1 pseudoePHEDrine (SUDOGEST) 30 mg tablet Take 1 tablet by mouth 4 times daily as needed for Congestion. 40 tablet 0 No current facility-administered medications for this visit. Patient Active Problem List Diagnosis Term - RADHA 09 Dec 2017 -induced hypertension in third trimester Anemia during in third trimester Cubital tunnel syndrome on right Diabetes mellitus type 2, controlled, without complications Esophageal reflux Essential hypertension Cervical facet syndrome Hidradenitis suppurativa Hyperlipidemia Nonallopathic lesion of thoracic region Obesity Insomnia Adjustment disorder with mixed anxiety and depressed mood Family History Problem Relation Age of Onset Thyroid disease Father Thyroid cancer Father Kidney cancer Father Colon cancer Father Cancer Sister cervical Cancer Maternal Grandmother Lung Cancer Paternal Grandmother Lung Past Surgical History: Procedure Laterality Date SECTION N/A 11/26/2017 Procedure: SECTION; Surgeon: Ayesha Cordova, DO; Location: [facility] MAIN OR TUBAL LIGATION 2012 WISDOM TOOTH EXTRACTION Social History Social History Marital status: Spouse name: N/A Number of children: N/A Years of education: N/A Occupational History Not on file. Social History Main Topics Smoking status: Never Smoker Smokeless tobacco: Never Used Alcohol use No Comment: Social Drinker Drug use: No Sexual activity: Yes Partners: Male Other Topics Concern Not on file Social History Narrative No narrative on file Allergies Allergen Reactions Trazodone Other (See Comments) Nightmares Review of Systems Constitutional: Negative for fatigue and fever. Respiratory: Negative for cough, chest tightness, shortness of breath and wheezing. Cardiovascular: Negative for chest pain and palpitations. Gastrointestinal: Negative for abdominal pain, nausea and vomiting. Musculoskeletal: Negative for gait problem and myalgias. Neurological: Negative for dizziness, syncope and headaches. Psychiatric/Behavioral: The patient is not nervous/anxious. Objective: Vitals: There were no vitals taken for this visit. Physical Exam Constitutional: She appears well-developed and well-nourished. HENT: Head: Atraumatic. Eyes: Pupils are equal, round, and reactive to light. EOM are normal. Cardiovascular: Normal rate, regular rhythm and normal heart sounds. Pulmonary/Chest: Effort normal and breath sounds normal. Neurological: She is alert. Psychiatric: She has a normal mood and affect. Entered by Mega Germain, acting as scribe for Dr. Joann DO. The documentation recorded by the scribe accurately reflects the service I personally perfo [facility] and the decisions made by me. Dr. Bernard David DO. 07/17/2018 15:07 documented in this encounter Plan of Treatment Not on filedocumented as of this encounter Visit Diagnoses + + | Diagnosis | + + | Adjustment disorder with mixed anxiety and depressed mood | + + documented in this encounter
--- OUTSIDE RECORDS SUMMARY | ~2019-11-22 | XMS | Encounter Summary ---
Demographics + + + | Address | [address] | | | [place] [address] | + + + | Home Phone | | + + + | Preferred Language | Unknown | + + + | Marital Status | | + + + | Mormonism Affiliation | Unknown | + + + | Race | Unknown | + + + | Ethnic Group | Unknown | + + + Author + + + | Author | [facility] | | | and Arielana | + + + | Organization | [facility] | | | and [...] [place], [place] | | | | | [address] | | + + + + + | Ritchie Ozuna | ECON | Unknown | | + + + + + Care Team Providers + +------+ + | Care Construction Management Instructor Name | Role | Phone | + +------+ + | Bernard David DO | PCP | | + +------+ + Reason for Referral Evaluate & Treat (Routine) +--------+ + + + + + | Status | Reason | Specialty | Diagnoses / | Referred By | Referred To | | | | | Procedures | Contact | Contact | +--------+ + + + + + | Closed | Specialty | | Diagnoses | | | | | Services | Services | Failure to | Tasha, | | | | Required | | progress in | Ayesha Bo, | | | | | | labor | DO [address] | | | | | [address] | | | | | | | [place] [place], | | | | | | | [place] [address] | | | | | | | Phone: | | | | | | | [phone] | | | | | | | Fax: | | | | | | | [phone] | | +--------+ + + + + + Reason for Visit + + + | Reason | Comments | + + + | Scheduled Induction | | + + + Auth/Cert +--------+--------+ + + + + | Status | Reason | Specialty | Diagnoses / | Referred By | Referred To | | | | | Procedures | Contact | Contact | +--------+--------+ + + + + | | | | Diagnoses | | | | | | | Encounter | | | | | | | for | | | | | | | delivery | | | | | | | without | | | | | | | indication | | | | | | | labor | | | | | | | failure to | | | | | | | progress | | | | | | | Procedures | | | | | | | | | | | | | | SECTION | | | +--------+--------+ + + + + Encounter Details +--------+ + + + + | Date | Type | Department | Care Team | Description | +--------+ + + + + | 11/25/ | [facility] | [facility] | Ayesha Cordova | Failure to progress | | 2018 - | Encounter | [facility] | Betzy, DO [address] | in labor (Primary | | | | [address] [place] | Dx) | | 11/29/ | | [address] [place], [place] | [place], [place] [address] | | | 2018 | | [id number] | [phone] | | | | | [phone] | | | +--------+ + + + [...] + + +---------+ + | No | | | | + + +---------+ + + + [...] + + + | Blood Pressure | 133/67 | 11/29/2017 7:57 AM | | | | | PDT | | + + + + + | Pulse | 86 | 11/29/2017 7:57 AM | | | | | PDT | | + + + + + | Temperature | 36.7 C (98.1 F) | 11/29/2017 7:57 AM | | | | | PDT | | + + + + + | Respiratory Rate | 18 | 11/29/2017 7:57 AM | | | | | PDT | | + + + + + | Oxygen Saturation | 98% | 11/28/2017 8:00 PM | | | | | PDT | | + + + + + | Inhaled Oxygen | - | - | | | Concentration | | | | + + + + + | Weight | 125.6 kg (277 lb) | 11/25/2017 6:51 AM | | | | | PDT | | + + + + + | Height | 165.1 cm (5' 5") | 11/25/2017 6:51 AM | | | | | PDT | | + + + + + | Body Mass Index | 46.1 | 11/25/2017 6:51 AM | | | | | PDT | | + + + + + documented in this encounter Discharge Summaries Patrizia Jay DO - 11/29/2017 10:44 AM PDT Physician Discharge Summary Patient ID: Imelda Rodrigues [id number] y.o. 1985 Admit date: 11/25/2017 Discharge date and time: 11/28/2017 Admitting Physician: Ayesha Cordova DO Discharge Physician: Patrizia Jay DO Admission Diagnoses: Encounter for delivery without indication [O82] Discharge Diagnoses: Repeat C/S, asymptomatic blood loss anemia, Liveborn infant, Chronic h ypertension, Type2 DM Admission Condition: good Discharged Condition: good Indication for Admission: C/S Hospital Course: no complications Discharge Exam: Vitals: 11/29/17 0757 BP: 133/67 Pulse: 86 Resp: 18 Temp: 36.7 C (98.1 F) Constitutional: She appears well-nourished. No distress. HENT: Head: Normocephalic and atraumatic. Mouth/Throat: Oropharynx is clear and moist. Lips/teeth/gums appear normal Eyes: Conjunctivae and EOM are normal. Pupils are equal, round, and reactive to light. Neck: Normal range of motion. Neck supple. No thyromegaly present. Cardiovascular: Normal rate, regular rhythm and normal heart sounds. No edema Pulmonary/Chest: Effort normal and breath sounds normal. No wheezes, no rales. Abdominal: Soft. Bowel sounds are normal.There is no hepatosplenomegaly and no tenderness. Musculoskeletal: Normal range of motion of upper/lower extremities and no joint tenderness . Neurological: She is alert, exhibits normal muscle tone. Cranial nerves 2-12 are intact, se nsation grossly intact, deep tendon reflexes present and normal Psychiatry : Alert and oriented to time, place and person. Mood and affect appear normal. A ppropriate judgment and insight. Memory grossly intact Skin: Skin is warm and dry. No rash noted, not diaphoretic. Disposition: home Patient Instructions: Discharge Medications New Medications Details ferrous sulfate 325 mg tablet Take 1 tablet by mouth 2 times daily (with breakfast & dinner). HYDROcodone-acetaminophen 5-325 mg per tablet Take 1-2 tablets by mouth every 4 hours as needed for Pain. aka: NORCO ibuprofen 600 MG tablet Take 1 tablet by mouth every 6 hours as needed for Pain. aka: ADVIL,MOTRIN Changed Medications Details labetalol 300 MG tablet Take 300 mg by mouth 2 times daily. What changed: Another medication with the same name was added. Make sure you understand ho w and when to take each. aka: NORMODYNE labetalol 300 MG tablet Take 1 tablet by mouth 2 times daily. What changed: You were already taking a medication with the same name, and this prescripti on was added. Make sure you understand how and when to take each. aka: NORMODYNE metFORMIN 500 mg 24 hr tablet Take 500 mg by mouth daily (with breakfast). What changed: Another medication with the same name was added. Make sure you understand ho w and when to take each. aka: GLUCOPHAGE-XR metFORMIN 500 mg tablet Take 1 tablet by mouth 2 times daily (with breakfast & dinner). What changed: You were already taking a medication with the same name, and this prescripti on was added. Make sure you understand how and when to take each. aka: GLUCOPHAGE Unchanged Medications Details 27-0.8 mg multivitamin tablet Take 1 tablet by mouth Daily. Activity: activity as tolerated Diet: diabetic diet Wound Care: keep wound clean and dry Follow-up with Dr Beckman in 2 weeks. Signed: Patrizia Jay DO 11/29/2017 10:44 documented in this enco unter Discharge Instructions Instructions Flora Hunt RN - 11/29/2017Formatting of this note might be different fro m the original. Discharge Instructions for Section () You had a section, or . During the , your baby was delivered thr ough a surgical incision in your stomach and uterus. Full recovery after a can lizbeth e time. It s important to take care of yourself for your own sake and because your new baby needs you. Here are some guidelines to follow at home. Incision care Here's how to take care of your incision: Shower as needed. Pat your incision dry. Watch your incision for signs of infection, like increasing redness or drainage. Hold a pillow against the incision when you laugh or cough and when you get up from a ly ing or sitting position. Remember, it can take as long [id number] for a incision to heal. Activity Here are some suggestions: Don t try to take care of anyone other than your baby and yourself. Remember, the more active you are, the more likely you are to have an increase in your b leeding. Get lots of rest. Take naps in the afternoon. Increase your activities gradually. Plan your activities so that you don t have to go up or down stairs more than necessar y. Do postsurgical deep breathing and coughing exercises. Ask yourhealthcare provider for instructions. Don t lift anything heavier than your baby until yourhealthcare provider tells you i t s OK. Don t drive until yourhealthcare provider says it s OK. Don t have sexual intercourse until after you ve had a follow-up appointment with yo urhealthcare provider andyou have decided on a control method. Follow-up Make a follow-up appointment as directed by our staff. When to call your healthcare provider Call your healthcare provider right away if you have any of the following: Fever of100.4F(38C) or higher Redness, pain, or drainage at your incision site Bleeding that requires a new sanitary pad every hour Severe pain in the abdomen Pain or urgency with urination Foul odor from vaginal discharge Trouble urinating or emptying your bladder No bowel movement within 1 week after the of your baby Swollen, red, painful area in the leg Appearance of rash or hives Sore, red, painful area on the breasts that may be accompanied by flu-like symptoms Feelings of anxiety, panic, and/or depression Date Last Reviewed: 01/29/201519996324-7090 [employer]. [address] [place] [address]. All righ ts reserved. This information is not intended as a substitute for professional medical care. Always follow your healthcare professional's instructions. documented in this encounter Medications at Time of [...] + + + +---------+ + + | ferrous sulfate | Take 1 tablet by | 60 | 1 | 11/30/19 | | | 325 mg tablet | mouth 2 times daily | tablet | | 18 | 8 | | | (with breakfast & | | | | | | | dinner). | | | | | + + + +---------+ + + | | Take 1-2 tablets by | 30 | 0 | 11/30/19 | | | HYDROcodone-acetamin | mouth every 4 hours | tablet | | 18 | 8 | | ophen (NORCO) 5-325 | as needed for Pain. | | | | | | mg per tablet | | | | | | + + + +---------+ + + | ibuprofen | Take 1 tablet by | 30 | 1 | 11/30/19 | | | (ADVIL,MOTRIN) 600 | mouth every 6 hours | tablet | | 18 | 8 | | MG tablet | as needed for Pain. | | | | | + + + +---------+ + + | labetalol | Take 1 tablet by | 60 | 2 | 11/30/19 | | | (NORMODYNE) 300 MG | mouth 2 times daily. | tablet | | 18 | 8 | | tablet | | | | | | + + + +---------+ + + | metFORMIN | Take 500 mg by mouth | | 0 | | | | (GLUCOPHAGE-XR) 500 | daily (with | | | | 8 | | mg 24 hr tablet | breakfast). | | | | | + + + +---------+ + + | 27-0.8 mg | Take 1 tablet by | | 0 | | | | multivitamin tablet | mouth Daily. | | | | 8 | + + + +---------+ + + documented as of this encounter Progress Notes Ayesha Cordova DO - 11/28/2017 12:37 PM PDTPt seen and examined. Pain well control led with oral pain meds and binder. Denies CP/SOB. Denies F/C. Tolerating po intake. Den ies N/V. Lochia decreasing. Voiding without difficulty +flatus. No BM. and pumping. VS: T 36.8, P 96, R 18, BP 120-130/60-70 Gen: NAD. Resting comfortable HRRR. LCTA Abd: soft. Obese. Appropriately tender. Incision C/D/I. Jose intact No drainage not ed. FF. NT. Ext: Tr edema b/l LE BS Fasting 92 PPD 122 A/P: 1. POD#2, s/p PLTCS secondary to failure to progress--stable 2. CHronic HTN. BPs stable. Will continue on Labetalol 300mg BID. 3. Asymptomatic acute blood loss anemia. Started on iron supplement. 4. Type II DM. Continue on metformin 500mg BID. 5. Progressive ambulation. Continue routine care 6. Anticipate DC home tomorrow. She will continue on labetalol and metformin and return t o office in two weeks for follow upElectronically signed by Ayesha Cordova DO at 11/14 12:41 PM PDTCoAyesha macedo DO - 11/27/2017 12:48 PM PDTPt seen and examined. Pain tolerable. TUBING DRIER DC'd this AM and has been converted to oral pain medications. Denies CP/SOB. Denies F/C. Tolerating po intake. Denies N/V. Lochia moderate but stable. Lopez removed and has been able to void. +flatus. No BM. and pumping. VS: T 36.8, P 96, R 18, BP 117/67, 138/68, 151/84 Gen: NAD. Resting comfortable HRRR. LCTA Abd: soft. Obese. Appropriately tender. Bandage in place. No drainage noted. FF. NT. Ext: Tr edema b/l LE Labs: 16.5>7.9/23.6<234 BS Fasting 116 PPD 118, 169 UOP: 900cc/12 hr A/P: 1. POD#1, s/p PLTCS secondary to failure to progress--stable 2. CHronic HTN. BPs stable. Will continue on Labetalol 3. Asymptomatic acute blood loss anemia. Started on iron supplement 4. Type II DM. Will restart metformin 500mg BID. Contineu AC and PC blood sugars. 5. Progressive ambulation. Pain management as indicated. Abdominal binder 6. Continue routine care 12 :52 PM Ayesha Galicia DO - 11/26/2017 6:01 AM PDTDespite attempts to more effect ively manage labor pattern with decreasing and restarting Pitocin have been unable to bring about any cervical change. Moderate caput continued and at -2 station. SVE remains unchanged . Noted to have moderate edema on the right side of the cervix FHTs 120s/mod variability/+accels--Cat I tracing Reviewed lack of cervical change, now edema, and continued caput. We discussed dysfunction al ctx pattern and difficulty increasing strength of ctx despite Pitocin use. We reviewed o ptions of continued Pitocin vs proceed with section. At this time with >12 hours w ith no cervical change would recommend . Risks of surgery as well as risks of continued Pitocin were discussed. Questions answered. She has elected to proceed with section. We reviewed risks of bleeding, infection, and damage to other organs. She is willing to ac cept blood transfusion and understands possible need for hysterectomy. Risks of anesthesia were reviewed. All questions answered. Consents signed. Anesthesia, nursing traffic sign erection supervisor, and peds notified. Cut time 0645 Jean-Paul Broderick MD - 11/26/2017 2:45 AM PDTAsked to see patient regarding decreasing comfort of labor and recent OB-RN issues regard ing 'high pressure' for the catheter. For the last hour patient has been using PCEA bolus b utton q20 minutes. To exam, patient with bilateral levels (to ice) at T12 or so. Examined epidural pumpbeverly while showing what would normally be the set parameters, on its home page was set to "0.1 mL/hr KVO." Disconnected to test the integrity of the catheter via bolus of 5 mL 2% lidocaine -- cathet er clearly not kinked, medicine given very easily. Strongly suspect her catheter was accidentally set to lower rate some time ago and epidural has likely been wearing off for awhile. Exchanging epidural pump and setting aside this pu mp with the KVO issue. Reset to standard settings. Please see Anesthesia Record for details of medication administration. Ayesha Galicia DO - 11/25/2017 10:1 5 PM PDTDysfunctional ctx pattern noted with increase in Pitocin to try and maximize [place] units tachysystole was noted. At this time will DC Pitocin with plans of re-initiating at midnight. Will increase per pr otocol. Continue to monitor BS and BPs. FHTs remain Cat I. P M Ayesha Galicia DO - 11/25/2017 9:23 PM PDTLabor progress notes from today Late entry from evaluation at 1245: Pt comfortable with epidural. SVE 3/90-2. Anterior Amniotomy performed. Clear fluid noted FHTs reactive. Cat I tracing. 130s/mod variability/+accels Ctx q 1 min IUPC and FECG placed Continue Pitocin per protocol to adequate [place] units BS 73 BPs 120s-130s/70s Evaluation at 1630 Remains comfortable with epidural. Denies pelvic pressure SVE 5/90/-2. Moderate caput FHTs reactive. Cat I tracing. 130s/mod variability/+accels Ctx q 1-2 min BS 94 BPx 120s-140s/70s Continue Pitocin per protocol. If BS drop below 70 will add D5LR Evaluation at 2135 SVE 5.5/95/-2. Moderate caput FHTs reactive. Cat I Ctx q 1-2 min. [place] units ranging from 150-175 Discussed continued management with Pitocin. Reviewed slow cervical change and caput. Fet al heart tones remain reactive and no signs of infection. Will allow to continue labor. Discussed anticipated cervical change and reviewed position changes to affect delivery. Continue routine care. documented in t his encounter Plan of Treatment + + +--------+ + + | Name | Type | Priori | Associated Diagnoses | Order Schedule | | | | ty | | | + + +--------+ + + | Ambulatory referral | Outpatient | Routin | Failure to | 1 Occurrences | | to | Referral | e | progress in labor | starting 11/29/2017 | | | | | | until 11/26/2018 | + + +--------+ + + documented as of this encounter Procedures + +--------+ + + + | Procedure Name | Priori | Date/Time | Associated Diagnosis | Comments | | | ty | | | | + +--------+ + + + | POC GLUCOSE | Routin | 11/29/2017 | | Results for this | | | e | 10:56 AM | | procedure are in the | | | | PDT | | results section. | + +--------+ + + + | POC GLUCOSE | Routin | 11/29/2017 | | Results for this | | | e | 6:39 AM | | procedure are in the | | | | PDT | | results section. | + +--------+ + + + | POC GLUCOSE | Routin | 11/28/2017 | | Results for this | | | e | 8:49 PM | | procedure are in the | | | | PDT | | results section. | + +--------+ + + + | POC GLUCOSE | Routin | 11/28/2017 | | Results for this | | | e | 5:52 PM | | procedure are in the | | | | PDT | | results section. | + +--------+ + + + | POC GLUCOSE | Routin | 11/28/2017 | | Results for this | | | e | 12:50 PM | | procedure are in the | | | | PDT | | results section. | + +--------+ + + + | POC GLUCOSE | Routin | 11/28/2017 | | Results for this | | | e | 6:25 AM | | procedure are in the | | | | PDT | | results section. | + +--------+ + + + | POC GLUCOSE | Routin | 11/27/2017 | | Results for this | | | e | 6:00 PM | | procedure are in the | | | | PDT | | results section. | + +--------+ + + + | POC GLUCOSE | Routin | 11/27/2017 | | Results for this | | | e | 4:31 PM | | procedure are in the | | | | PDT | | results section. | + +--------+ + + + | POC GLUCOSE | Routin | 11/27/2017 | | Results for this | | | e | 11:57 AM | | procedure are in the | | | | PDT | | results section. | + +--------+ + + + | CBC NO DIFFERENTIAL | Routin | 11/27/2017 | | Results for this | | | e | 6:12 AM | | procedure are in the | | | | PDT | | results section. | + +--------+ + + + | POC GLUCOSE | Routin | 11/27/2017 | | Results for this | | | e | 5:57 AM | | procedure are in the | | | | PDT | | results section. | + +--------+ + + + | POC GLUCOSE | Routin | 11/26/2017 | | Results for this | | | e | 9:15 PM | | procedure are in the | | | | PDT | | results section. | + +--------+ + + + | POC GLUCOSE | Routin | 11/26/2017 | | Results for this | | | e | 6:35 PM | | procedure are in the | | | | PDT | | results section. | + +--------+ + + + | POC GLUCOSE | Routin | 11/26/2017 | | Results for this | | | e | 4:26 PM | | procedure are in the | | | | PDT | | results section. | + +--------+ + + + | SECTION | | 11/26/2017 | labor failure to | | | | | 6:33 AM | progress | | | | | PDT | | | + +--------+ + + + | POC GLUCOSE | Routin | 11/26/2017 | | Results for this | | | e | 5:45 AM | | procedure are in the | | | | PDT | | results section. | + +--------+ + + + | POC GLUCOSE | Routin | 11/26/2017 | | Results for this | | | e | 4:00 AM | | procedure are in the | | | | PDT | | results section. | + +--------+ + + + | POC GLUCOSE | Routin | 11/26/2017 | | Results for this | | | e | 1:58 AM | | procedure are in the | | | | PDT | | results section. | + +--------+ + + + | POC GLUCOSE | Routin | 11/26/2017 | | Results for this | | | e | 12:12 AM | | procedure are in the | | | | PDT | | results section. | + +--------+ + + + | POC GLUCOSE | Routin | 11/25/2017 | | Results for this | | | e | 10:59 PM | | procedure are in the | | | | PDT | | results section. | + +--------+ + + + | POC GLUCOSE | Routin | 11/25/2017 | | Results for this | | | e | 9:56 PM | | procedure are in the | | | | PDT | | results section. | + +--------+ + + + | POC GLUCOSE | Routin | 11/25/2017 | | Results for this | | | e | 8:59 PM | | procedure are in the | | | | PDT | | results section. | + +--------+ + + + | POC GLUCOSE | Routin | 11/25/2017 | | Results for this | | | e | 8:00 PM | | procedure are in the | | | | PDT | | results section. | + +--------+ + + + | POC GLUCOSE | Routin | 11/25/2017 | | Results for this | | | e | 6:46 PM | | procedure are in the | | | | PDT | | results section. | + +--------+ + + + | POC GLUCOSE | Routin | 11/25/2017 | | Results for this | | | e | 5:40 PM | | procedure are in the | | | | PDT | | results section. | + +--------+ + + + | POC GLUCOSE | Routin | 11/25/2017 | | Results for this | | | e | 4:41 PM | | procedure are in the | | | | PDT | | results section. | + +--------+ + + + | POC GLUCOSE | Routin | 11/25/2017 | | Results for this | | | e | 3:25 PM | | procedure are in the | | | | PDT | | results section. | + +--------+ + + + | POC GLUCOSE | Routin | 11/25/2017 | | Results for this | | | e | 1:22 PM | | procedure are in the | | | | PDT | | results section. | + +--------+ + + + | CBC NO DIFFERENTIAL | Routin | 11/25/2017 | | Results for this | | | e | 6:32 AM | | procedure are in the | | | | PDT | | results section. | + +--------+ + + + | TYPE AND SCREEN | Routin | 11/25/2017 | | Results for this | | | e | 6:32 AM | | procedure are in the | | | | PDT | | results section. | + +--------+ + + + | KARTHIK, STREP GROUP | Routin | 11/07/2017 | | Results for this | | B | e | | | procedure are in the | | | | | | results section. | + +--------+ + + + | ABO RH | Routin | 05/05/2017 | | Results for this | | | e | | | procedure are in the | | | | | | results section. | + +--------+ + + + | RUBELLA AB, IGG | Routin | 05/05/2017 | | Results for this | | | e | | | procedure are in the | | | | | | results section. | + +--------+ + + + | RAPID PLASMA REAGIN, | Routin | 05/05/2017 | | Results for this | | QUAL | e | | | procedure are in the | | | | | | results section. | + +--------+ + + + | HIV 1 AND 2 AB, | Routin | 05/05/2017 | | Results for this | | REFLEX | e | | | procedure are in the | | | | | | results section. | + +--------+ + + + | HEPATITIS B SURFACE | Routin | 05/05/2017 | | Results for this | | AG | e | | | procedure are in the | | | | | | results section. | + +--------+ + + + | ANTIBODY SCREEN | Routin | 05/05/2017 | | Results for this | | | e | | | procedure are in the | | | | | | results section. | + +--------+ + + + documented in this encounter Results POC Glucose (11/29/2017 10:56 AM PDT) + +---------+ + + + | Component | Value | Ref Range | Performed | Pathologist | | | | | At | Signature | + +---------+ + + + | Glucose, | 132 (H) | 70 - 109 mg/dL | [facility] | | [facility] | | | | | [facility] | | | | | | [facility] - | | | | | | [facility]ATORY | | + +---------+ + + + + + | Specimen | + + | Blood | + + + + + + + | Performing | Address | City/State/Zipcode | Phone Number | | Organization | | | | + + + + + | [facility] | [address] | [address] [place] | [phone] | | [facility] | | [address] | | | - LABORATORY | | | | + + + + + POC Glucose (11/29/2017 6:39 AM PDT) + +-------+ + + + | Component | Value | Ref Range | Performed | Pathologist | | | | | At | Signature | + +-------+ + + + | Glucose, | 104 | 70 - 109 mg/dL | [facility] | [facility] | | [facility] | | | | | | [facility] | | | | | | [facility] - | | | | | | LABORATORY | | + +-------+ + + + + + | Specimen | + + | Blood | + + + + + + + | Performing | Address | City/State/Zipcode | Phone Number | | Organization | | | | + + + + + | [facility] | [address] | [place] | [phone] | | [facility] | | [address] | | | - LABORATORY | | | | + + + + + POC Glucose (11/28/2017 8:49 PM PDT) + +-------+ + + + | Component | Value | Ref Range | Performed | Pathologist | | | | | At | Signature | + +-------+ + + + | Glucose, | 91 | 70 - 109 mg/dL | [facility] | | | [facility] | | | [facility] | | | | | | [facility] | | | | | | [facility] - | | | | | | LABORATORY | | + +-------+ + + + + + | Specimen | + + | Blood | + + + + + + + | Performing | Address | City/State/Zipcode | Phone Number | | Organization | | | | + + + + + | [facility] | [address] | [place] | [phone] | | [facility] | | [address] | | | - LABORATORY | | | | + + + + + POC Glucose (11/28/2017 5:52 PM PDT) + +-------+ + + + | Component | Value | Ref Range | Performed | Pathologist | | | | | At | Signature | + +-------+ + + + | Glucose, | 107 | 70 - 109 mg/dL | [facility] | | [facility] | | | | | | [facility] | | | | | | [facility] - | | | | | | LABORATORY | | + +-------+ + + + + + | Specimen | + + | Blood | + + + + + + + | Performing | Address | City/State/Zipcode | Phone Number | | Organization | | | | + + + + + | [facility] | [address] | [place] | [phone] | | [facility] | | [address] | | | - LABORATORY | | | | + + + + + POC Glucose (11/28/2017 12:50 PM PDT) + +-------+ + + + | Component | Value | Ref Range | Performed | Pathologist | | | | | At | Signature | + +-------+ + + + | Glucose, | 85 | 70 - 109 mg/dL | [facility] | | [facility] | | [facility] | | | [facility] | [facility] | | | | | | [facility] - | | | | | | LABORATORY | | + +-------+ + + + + + | Specimen | + + | Blood | + + + + + + + | Performing | Address | City/State/Zipcode | Phone Number | | Organization | | | | + + + + + | [facility] | [address] | [place] | [phone] | | [facility] | | [address] | | | - LABORATORY | | | | + + + + + POC Glucose (11/28/2017 6:25 AM PDT) + +-------+ + + + | Component | Value | Ref Range | Performed | Pathologist | | | | | At | Signature | + +-------+ + + + | Glucose, | 95 | 70 - 109 mg/dL | [facility] | | | P[facility] | | | [facility] | | | | | | [facility] | | | | | | CENTER - | | | | | | LABORATORY | | + +-------+ + + + + + | Specimen | + + | Blood | + + + + + + + | Performing | Address | City/State/Zipcode | Phone Number | | Organization | | | | + + + + + | [facility] | [address] | [place] | [phone] | | [facility] | | [address] | | | - LABORATORY | | | | + + + + + POC Glucose (11/27/2017 6:00 PM PDT) + +---------+ + + + | Component | Value | Ref Range | Performed | Pathologist | | | | | At | Signature | + +---------+ + + + | Glucose, | 122 (H) | 70 - 109 mg/dL | [facility] | | | P[facility] | | | [facility] | | | | | | [facility] | | | | | | CENTER - | | | | | | LABORATORY | | + +---------+ + + + + + | Specimen | + + | Blood | + + + + + + + | Performing | Address | City/State/Zipcode | Phone Number | | Organization | | | | + + + + + | [facility] | [address] | [place] | [phone] | | [facility] | | [address] | | | - LABORATORY | | | | + + + + + POC Glucose (11/27/2017 4:31 PM PDT) + +-------+ + + + | Component | Value | Ref Range | Performed | Pathologist | | | | | At | Signature | + +-------+ + + + | Glucose, | 101 | 70 - 109 mg/dL | [facility] | | | [facility] | [facility] | | | | | | [facility] | | | | | | CENTER - | | | | | | LABORATORY | | + +-------+ + + + + + | Specimen | + + | Blood | + + + + + + + | Performing | Address | City/State/Zipcode | Phone Number | | Organization | | | | + + + + + | [facility] | [address] | [address] [place] | [phone] | | [facility] | | [address] | | | - LABORATORY | | | | + + + + + POC Glucose (11/27/2017 11:57 AM PDT) + +---------+ + + + | Component | Value | Ref Range | Performed | Pathologist | | | | | At | Signature | + +---------+ + + + | Glucose, | 169 (H) | 70 - 109 mg/dL | [facility] | | | POC | | | [facility] | | | | | | [facility]ICAL | | | | | | CENTER - | | | | | | LABORATORY | | + +---------+ + + + + + | Specimen | + + | Blood | + + + + + + + | Performing | Address | City/State/Zipcode | Phone Number | | Organization | | | | + + + + + | [facility] | [address] | [place], [place] | [phone] | | [facility] | | [address] | | | - LABORATORY | | | | + + + + + CBC no Differential (11/27/2017 6:12 AM PDT) + + + + + + | Component | Value | Ref Range | Performed | Pathologist | | | | | At | Signature | + + + + + + | WBC | 16.5 (H) | 4.0 - 11.0 K/uL | [facility] | | | | | [facility] | | [facility] | | [facility] | | | | | | CENTER - | | | | | | LABORATORY | | + + + + + + | RBC | 3.04 (L) | 3.70 - 5.20 | [facility] | | | | | M/uL | [facility] | | | [facility] | | MEDICAL | | | | | | CENTER - | | | | | | LABORATORY | | + + + + + + | Hemoglobin | 7.9 (L) | 11.5 - 16.0 | [facility] | | | | | g/dL | [facility] | | | | | | MEDICAL | | | | | | CENTER - | | | | | | LABORATORY | | + + + + + + | Hematocrit | 23.6 (L) | 34.0 - 47.0 % | [facility] | | | | | | [facility] | | | | | | MEDICAL | | | | | | CENTER - | | | | | | LABORATORY | | + + + + + + | MCV | 77.6 (L) | 83.0 - 101.0 fL | [facility] | | | | | | [facility] | | | | | | [facility]ICAL | | | | | | CENTER - | | | | | | LABORATORY | | + + + + + + | MCH | 26.1 (L) | 28.0 - 35.0 pg | [facility] | | | | | | [facility] | | | | | | [facility]ICAL | | | | | | CENTER - | | | | | | LABORATORY | | + + + + + + | MCHC | 33.6 | 32.0 - 36.0 | [facility] | | | | | g/dL | [facility] | | | | | | MEDICAL | | | | | | CENTER - | | | | | | LABORATORY | | + + + + + + | RDW-CV | 15.1 (H) | <15.0 % | [facility] | | | | | [facility] | | | | | | [facility] | | | | | | CENTER - | | | | | | LABORATORY | | + + + + + + | Platelet | 234 | 140 - 440 K/uL | [facility] | | | Count | | | [facility] | | | | | | MEDICAL | | | | | | CENTER - | | | | | | LABORATORY | | + + + + + + | MPV | 10.1 | fL | [facility] | | | | [...] + | [facility] | [address] | [place] | [phone] | | [facility] | | [address] | | | - LABORATORY | | | | + + + + + POC Glucose (11/27/2017 5:57 AM PDT) + +---------+ + + + | Component | Value | Ref Range | Performed | Pathologist | | | | | At | Signature | + +---------+ + + + | Glucose, | 116 (H) | 70 - 109 mg/dL | [facility] | | | POC | | | [facility] | | [facility] | | [facility] | | | | | | CENTER - | | | | | | LABORATORY | | + +---------+ + + + + + | Specimen | + + | Blood | + + + + + + + | Performing | Address | City/State/Zipcode | Phone Number | | Organization | | | | + + + + + | [facility] | [address] | [place] | [phone] | | [facility] | | [address] | | | - LABORATORY | | | | + + + + + POC Glucose (11/26/2017 9:15 PM PDT) + +---------+ + + + | Component | Value | Ref Range | Performed | Pathologist | | | | | At | Signature | + +---------+ + + + | Glucose, | 118 (H) | 70 - 109 mg/dL | [facility] | | | POC | | | [facility] | | | | | [facility] | | | | | | CENTER - | | | | | | LABORATORY | | + +---------+ + + + + + | Specimen | + + | Blood | + + + + + + + | Performing | Address | City/State/Zipcode | Phone Number | | Organization | | | | + + + + + | [facility] | [address] | [place] | [phone] | | [facility] | | [address] | | | - LABORATORY | | | | + + + + + POC Glucose (11/26/2017 6:35 PM PDT) + +-------+ + + + | Component | Value | Ref Range | Performed | Pathologist | | | | | At | Signature | + +-------+ + + + | Glucose, | 108 | 70 - 109 mg/dL | [facility] | | | P[facility] | [facility] | | | | | | [facility] | | | | | | CENTER - | | | | | | LABORATORY | | + +-------+ + + + + + | Specimen | + + | Blood | + + + + + + + | Performing | Address | City/State/Zipcode | Phone Number | | Organization | | | | + + + + + | [facility] | [address] | [place] | [phone] | | [facility] | | [address] | | | - LABORATORY | | | | + + + + + POC Glucose (11/26/2017 4:26 PM PDT) + +-------+ + + + | Component | Value | Ref Range | Performed | Pathologist | | | | | At | Signature | + +-------+ + + + | Glucose, | 108 | 70 - 109 mg/dL | [facility] | | | POC | | | [facility] | | | | | | [facility] | | | | | | CENTER - | | | | | | LABORATORY | | + +-------+ + + + + + | Specimen | + + | Blood | + + + + + + + | Performing | Address | City/State/Zipcode | Phone Number | | Organization | | | | + + + + + | [facility] | [address] | [place] | [phone] | | [facility] | | [address] | | | - LABORATORY | | | | + + + + + POC Glucose (11/26/2017 5:45 AM PDT) + +---------+ + + + | Component | Value | Ref Range | Performed | Pathologist | | | | | At | Signature | + +---------+ + + + | Glucose, | 115 (H) | 70 - 109 mg/dL | [facility] | | | POC | | | [facility] | | | | [facility] | | | | | | CENTER - | | | | | | LABORATORY | | + +---------+ + + + + + | Specimen | + + | Blood | + + + + + + + | Performing | Address | City/State/Zipcode | Phone Number | | Organization | | | | + + + + + | [facility] | [address] | [place] | [phone] | | [facility] | | [address] | | | - LABORATORY | | | | + + + + + POC Glucose (11/26/2017 4:00 AM PDT) + +---------+ + + + | Component | Value | Ref Range | Performed | Pathologist | | | | | At | Signature | + +---------+ + + + | Glucose, | 115 (H) | 70 - 109 mg/dL | [facility] | | | POC | | | [facility] | | | | | | [facility] | | | | | | CENTER - | | | | | | LABORATORY | | + +---------+ + + + + + | Specimen | + + | Blood | + + + + + + + | Performing | Address | City/State/Zipcode | Phone Number | | Organization | | | | + + + + + | [facility] | [address] | [place] | [phone] | | [facility] | | [address] | | | - LABORATORY | | | | + + + + + POC Glucose (11/26/2017 1:58 AM PDT) + +-------+ + + + | Component | Value | Ref Range | Performed | Pathologist | | | | | At | Signature | + +-------+ + + + | Glucose, | 103 | 70 - 109 mg/dL | [facility] | | | POC | | | [facility] | | | | | | MEDICAL | | | | | | CENTER - | | | | | | LABORATORY | | + +-------+ + + + + + | Specimen | + + | Blood | + + + + + + + | Performing | Address | City/State/Zipcode | Phone Number | | Organization | | | | + + + + + | [facility] | [address] | [address] [place] [place] | [phone] | | [facility] | | [address] | | | - LABORATORY | | | | + + + + + POC Glucose (11/26/2017 12:12 AM PDT) + +---------+ + + + | Component | Value | Ref Range | Performed | Pathologist | | | | | At | Signature | + +---------+ + + + | Glucose, | 119 (H) | 70 - 109 mg/dL | [facility] | | | POC | | | [facility] | | | | | | [facility] | | | | | | CENTER - | | | | | | LABORATORY | | + +---------+ + + + + + | Specimen | + + | Blood | + + + + + + + | Performing | Address | City/State/Zipcode | Phone Number | | Organization | | | | + + + + + | [facility] | [address] | [place] | [phone] | | [facility] | | [address] | | | - LABORATORY | | | | + + + + + POC Glucose (11/25/2017 10:59 PM PDT) + +---------+ + + + | Component | Value | Ref Range | Performed | Pathologist | | | | | At | Signature | + +---------+ + + + | Glucose, | 114 (H) | 70 - 109 mg/dL | [facility] | | | POC | | | [facility] | | | | [facility] | | | | | | CENTER - | | | | | | LABORATORY | | + +---------+ + + + + + | Specimen | + + | Blood | + + + + + + + | Performing | Address | City/State/Zipcode | Phone Number | | Organization | | | | + + + + + | [facility] | [address] | [place] | [phone] | | [facility] | | [address] | | | - LABORATORY | | | | + + + + + POC Glucose (11/25/2017 9:56 PM PDT) + +-------+ + + + | Component | Value | Ref Range | Performed | Pathologist | | | | | At | Signature | + +-------+ + + + | Glucose, | 82 | 70 - 109 mg/dL | [facility] | | | POC [facility] | | [facility] | | [facility] | | [facility] | | | | | | CENTER - | | | | | | LABORATORY | | + +-------+ + + + + + | Specimen | + + | Blood | + + + + + + + | Performing | Address | City/State/Zipcode | Phone Number | | Organization | | | | + + + + + | [facility] | [address] | [place] | [phone] | | [facility] | | [address] | | | - LABORATORY | | | | + + + + + POC Glucose (11/25/2017 8:59 PM PDT) + +-------+ + + + | Component | Value | Ref Range | Performed | Pathologist | | | | | At | Signature | + +-------+ + + + | Glucose, | 72 | 70 - 109 mg/dL | [facility] | | | POC | | | [facility] | | | | | | MEDICAL | | | | | | CENTER - | | | | | | LABORATORY | | + +-------+ + + + + + | Specimen | + + | Blood | + + + + + + + | Performing | Address | City/State/Zipcode | Phone Number | | Organization | | | | + + + + + | [facility] | [address] | [place] | [phone] | | [facility] | | [address] | | | - LABORATORY | | | | + + + + + POC Glucose (11/25/2017 8:00 PM PDT) + +-------+ + + + | Component | Value | Ref Range | Performed | Pathologist | | | | | At | Signature | + +-------+ + + + | Glucose, | 71 | 70 - 109 mg/dL | [facility] | | | POC | | | [facility] | | | | | | [facility] | | | | | | C[facility] - | | | | | | LABORATORY | | + +-------+ + + + + + | Specimen | + + | Blood | + + + + + + + | Performing | Address | City/State/[facility] Hospital[facility] | Phone Number | | Organization | | | | + + + + + | [facility] | [address] | [place] | [phone] | | [facility] | | [address] | | | - LABORATORY | | | | + + + + + POC Glucose (11/25/2017 6:46 PM PDT) + +-------+ + + + | Component | Value | Ref Range | Performed | Pathologist | | | | | At | Signature | + +-------+ + + + | Glucose, | 72 | 70 - 109 mg/dL | [facility] | | | POC [facility] | [facility] | | | | | | [facility] | | | | | | CENTER - | | | | | | LABORATORY | | + +-------+ + + + + + | Specimen | + + | Blood | + + + + + + + | Performing | Address | City/State/Zipcode | Phone Number | | Organization | | | | + + + + + | [facility] | [address] | [place] | [phone] | | [facility] | | [address] | | | - LABORATORY | | | | + + + + + POC Glucose (11/25/2017 5:40 PM PDT) + +-------+ + + + | Component | Value | Ref Range | Performed | Pathologist | | | | | At | Signature | + +-------+ + + + | Glucose, | 74 | 70 - 109 mg/dL | [facility] | | | POC | | | [facility] | | | | | | [facility] | | | | | | CENTER - | | | | | | LABORATORY | | + +-------+ + + + + + | Specimen | + + | Blood | + + + + + + + | Performing | Address | City/State/Zipcode | Phone Number | | Organization | | | | + + + + + | [facility] | [address] | [place] | [phone] | | [facility] | | [address] | | | - LABORATORY | | | | + + + + + POC Glucose (11/25/2017 4:41 PM PDT) + +-------+ + + + | Component | Value | Ref Range | Performed | Pathologist | | | | | At | Signature | + +-------+ + + + | Glucose, | 94 | 70 - 109 mg/dL | [facility] | | | POC | | | [facility] | | | | | | [facility] | | | | | | CENTER - | | | | | | LABORATORY | | + +-------+ + + + + + | Specimen | + + | Blood | + + + + + + + | Performing | Address | City/State/Zipcode | Phone Number | | Organization | | | | + + + + + | [facility] | [address] | [place] | [phone] | | [facility] | | [address] | | | - LABORATORY | | | | + + + + + POC Glucose (11/25/2017 3:25 PM PDT) + +-------+ + + + | Component | Value | Ref Range | Performed | Pathologist | | | | | At | Signature | + +-------+ + + + | Glucose, | 82 | 70 - 109 mg/dL | [facility] | | | POC | | | [facility] | | | | | | MEDICAL | | | | | | CENTER - | | | | | | LABORATORY | | + +-------+ + + + + + | Specimen | + + | Blood | + + + + + + + | Performing | Address | City/State/Zipcode | Phone Number | | Organization | | | | + + + + + | [facility] | [address] | [place] | [phone] | | [facility] | | [address] | | | - LABORATORY | | | | + + + + + POC Glucose (11/25/2017 1:22 PM PDT) + +-------+ + + + | Component | Value | Ref Range | Performed | Pathologist | | | | | At | Signature | + +-------+ + + + | Glucose, | 73 | 70 - 109 mg/dL | [facility] | | | POC | | | [facility] | | | | | | [facility] | | | | | | CENTER - | | | | | | LABORATORY | | + +-------+ + + + + + | Specimen | + + | Blood | + + + + + + + | Performing | Address | City/State/Zipcode | Phone Number | | Organization | | | | + + + + + | [facility] | [address] | [place] | [phone] | | [facility] | | [address] | | | - LABORATORY | | | | + + + + + Type and Screen (11/25/2017 6:32 AM PDT) + + + + + + | Component | Value | Ref Range | Performed | Pathologist | | | | | At | Signature | + + + + + + | ABO | A | | [facility] | | | | | | [facility] | | | | | | MEDICAL | | | | | | CENTER - | | | | | | BLOOD BANK | | + + + + + + | Rh Type | Positive | | [facility] | | | | | | [facility] | | | | | | MEDICAL | | | | | | CENTER - | | | | | | BLOOD BANK | | + + + + + + | Antibody | Negative | | [facility] | | | Screen | | | [facility] | | | | | | MEDICAL | | | | | | CENTER - | | | | | | BLOOD BANK | | + + + + + + + + | Specimen | + + | Blood | + + + + + + + | Performing | Address | City/State/Zipcode | Phone Number | | Organization | | | | + + + + + | [facility] | [address] | [place] | | | [facility] | | [address] | | | - BLOOD BANK | | | | + + + + + CBC no Differential (11/25/2017 6:32 AM PDT) + + + + + + | Component | Value | Ref Range | Performed | Pathologist | | | | | At | Signature | + + + + + + | WBC | 17.6 (H) | 4.0 - 11.0 K/uL | [facility] | | | | | [facility] | [facility] | | | [facility] | | | | | | CENTER - | | | | | | LABORATORY | | + + + + + + | RBC | 4.38 | 3.70 - 5.20 | [facility] | | | | | M/uL | [facility] | | | | | | MEDICAL | | | | | | CENTER - | | | | | | LABORATORY | | + + + + + + | Hemoglobin | 11.1 (L) | 11.5 - 16.0 | [facility] | | | | | g/dL | [facility] | | | | | | MEDICAL | | | | | | CENTER - | | | | | | LABORATORY | | + + + + + + | Hematocrit | 33.5 (L) | 34.0 - 47.0 % | [facility] | | | | | | [facility] | | | | | | MEDICAL | | | | | | CENTER - | | | | | | LABORATORY | | + + + + + + | MCV | 76.5 (L) | 83.0 - 101.0 fL | [facility] | | | | | | [facility] | | | | | | MEDICAL | | | | | | CENTER - | | | | | | LABORATORY | | + + + + + + | MCH | 25.5 (L) | 28.0 - 35.0 pg | [facility] | | | | | | [facility] | | | | | | MEDICAL | | | | | | CENTER - | | | | | | LABORATORY | | + + + + + + | MCHC | 33.3 | 32.0 - 36.0 | [facility] | | | | | g/dL | [facility] | | | | | | MEDICAL | | | | | | CENTER - | | | | | | LABORATORY | | + + + + + + | RDW-CV | 15.5 (H) | <15.0 % | [facility] | | | | | | [facility] | | | | | | MEDICAL | | | | | | CENTER - | | | | | | LABORATORY | | + + + + + + | Platelet | 277 | 140 - 440 K/uL | [facility] | | | Count | | | [facility] | | | | | | MEDICAL | | | | | | CENTER - | | | | | | LABORATORY | | + + + + + + | MPV | 10.2 | fL | [facility] | | | | [...] [address] | [place] | [phone] | | [facility] | | [address] | | | - LABORATORY | | | | + + + + + Culture,Strep Group B (11/07/2017) + + + + + + | Component | Value | Ref Range | Performed | Pathologist | | | | | At | Signature | + + + + + + | GBS result, | Negative | Negative | | | | External | | | | | + + + + + + + + | Specimen | + + | Tissue - Structure | | of lower third of | | vagina (body | | structure) | + + Rubella Ab, IgG (05/05/2017) + +--------+ + + + | Component | Value | Ref Range | Performed | Pathologist | | | | | At | Signature | + +--------+ + + + | Rubella, | Immune | | | | | External | | | | | + +--------+ + + + + + | Specimen | + + | Blood | + + Rapid Plasma Reagin, Qual (05/05/2017) + + + + + + | Component | Value | Ref Range | Performed | Pathologist | | | | | At | Signature | + + + + + + | RPR, | Non-Reactive | Non-Reactive | | | | External | | | | | + + + + + + + + | Specimen | + + | Blood | + + HIV 1 and 2 Ab, Reflex (05/05/2017) + + + + + + | Component | Value | Ref Range | Performed | Pathologist | | | | | At | Signature | + + + + + + | HIV, | Non-Reactive | Non-Reactive | | | | External | | | | | + + + + + + + + | Specimen | + + | Blood | + + Hepatitis B Surface Ag (05/05/2017) + + + + + + | Component | Value | Ref Range | Performed | Pathologist | | | | | At | Signature | + + + + + + | HBsAg, | Non-Reactive | Non-Reactive | | | | External | | | | | + + + + + + + + | Specimen | + + | Blood | + + ABO Rh (05/05/2017) + + + + + + | Component | Value | Ref Range | Performed | Pathologist | | | | | At | Signature | + + + + + + | ABO, | A | | | | | External | | | | | + + + + + + | Rh, | Positive | | | | | External | | | | | + + + + + + + + | Specimen | + + | Blood | + + Antibody Screen (05/05/2017) + + + + + + | Component | Value | Ref Range | Performed | Pathologist | | | | | At | Signature | + + + + + + | Antibody | Negative | Negative | | | | Screen, | | | | | | External | | | | | + + + + + + + + | Specimen | + + | Blood | + + documented in this encounter Visit Diagnoses + + | Diagnosis | + + | Term - RADHA 09 Dec 2017 - Primary | + + | Failure to progress in labor Other and unspecified uterine inertia, unspecified as to | | episode of care | + + | -induced hypertension in third trimester | + + | Anemia during in third trimester | + + | Gestational diabetes mellitus (GDM) in third trimester | + + documented in this encounter Administered Medications + +--------+ +--------+------+------+ | Medication Order | MAR | Action | Dose | Rate | Site | | | Action | Date | | | | + +--------+ +--------+------+------+ | docusate sodium (COLACE) | Given | 11/29/19 | 200 mg | | | | capsule 200 mg 200 mg, Oral, | | 18 8:45 | | | | | NIGHTLY, First dose on Fri | | PM PDT | | | | | 11/26/17 at 2100, Hold for loose | | | | | | | stools, | | | | | | + +--------+ +--------+------+------+ +-------+ +--------+---+---+ | Given | 11/28/19 | 200 mg | | | | | 18 8:28 | | | | | | PM PDT | | | | +-------+ +--------+---+---+ | Given | 11/27/19 | 200 mg | | | | | 18 9:11 | | | | | | PM PDT | | | | +-------+ +--------+---+---+ +---+---+ | | | +---+---+ + +---------+ + + +---+ | fentaNYL 2 mcg/mL + bupivacaine | New Bag | 11/27/19 | 14 mL/hr | 14 mL/hr | | | 0.125% in saline (PF) at 14 | | 18 5:53 | | | | | mL/hr, EPIDURAL, CONTINUOUS, | | AM PDT | | | | | Starting 11/25/17 at 0645, May | | | | | | | adjust rate from 8-16 mL/hour., | | | | | | | Intra-op, Patient-controlled | | | | | | | Bolus Dose (mL): 5, Lockout | | | | | | | Interval (min): 20 | | | | | | + +---------+ + + +---+ +---------+ + + +---+ | New Bag | 11/26/19 | 14 mL/hr | 14 mL/hr | | | | 18 10:48 | | | | | | PM PDT | | | | +---------+ + + +---+ | New Bag | 11/26/19 | 14 mL/hr | 14 mL/hr | | | | 18 10:10 | | | | | | PM PDT | | | | +---------+ + + +---+ +---+---+ | | | +---+---+ + +---------+ +---+---+---+ | fentaNYL 50 mcg/mL TUBING DRIER | New Bag | 11/27/19 | | | | | Intravenous, CONTINUOUS, Starting | | 18 8:58 | | | | | 11/26/17 at 0815, for adult | | AM PDT | | | | | patients LESS than 65 years old | | | | | | | and NO risk of sleep apnea, | | | | | | | Loading Dose(mcg): 0, Starting | | | | | | | TUBING DRIER Dose(mcg): 10, Incremental | | | | | | | Increase TUBING DRIER Dose(mcg): 5, | | | | | | | Maximum TUBING DRIER Dose(mcg): 20, | | | | | | | Lockout Interval(min): 6, One | | | | | | | Hour Limit(mcg): 150 | | | | | | + +---------+ +---+---+---+ +---+---+ | | | +---+---+ + +-------+ +--------+---+---+ | ferrous sulfate tablet 325 mg | Given | 11/30/19 | 325 mg | | | | 325 mg, Oral, 2 TIMES DAILY WITH | | 18 8:53 | | | | | BREAKFAST & DINNER, First dose on | | AM PDT | | | | | Cristina 11/27/17 at 1245 | | | | | | + +-------+ +--------+---+---+ +-------+ +--------+---+---+ | Given | 11/29/19 | 325 mg | | | | | 18 5:54 | | | | | | PM PDT | | | | +-------+ +--------+---+---+ | Given | 11/29/19 | 325 mg | | | | | 18 8:21 | | | | | | AM PDT | | | | +-------+ +--------+---+---+ +---+---+ | | | +---+---+ + +-------+ +---------+---+---+ | HYDROcodone-acetaminophen | Given | 11/30/19 | 2 | | | | (NORCO) 5-325 mg per tablet 1-2 | | 18 12:47 | tablets | | | | tablet 1-2 tablet, Oral, EVERY 4 | | PM PDT | | | | | HOURS PRN, Pain, Starting Cristina | | | | | | | 11/27/17 at 0816 | | | | | | + +-------+ +---------+---+---+ +-------+ +---------+---+---+ | Given | 11/30/19 | 2 | | | | | 18 8:53 | tablets | | | | | AM PDT | | | | +-------+ +---------+---+---+ | Given | 11/30/19 | 2 | | | | | 18 2:06 | tablets | | | | | AM PDT | | | | +-------+ +---------+---+---+ +---+---+ | | | +---+---+ + +-------+ +--------+---+---+ | ibuprofen (ADVIL,MOTRIN) tablet | Given | 11/30/19 | 600 mg | | | | 600 mg 600 mg, Oral, EVERY | | 18 12:47 | | | | | HOURS PRN, Pain, Starting Cristina | | PM PDT | | | | | 11/27/17 at 1200, For 9 days, If | | | | | | | urine output is less than 240ml/8 | | | | | | | hours (30ml/hr) or if signs of | | | | | | | bleeding, contact MD and hold. | | | | | | | Administer with food or snack, | | | | | | | Post-op/Phase II | | | | | | + +-------+ +--------+---+---+ +-------+ +--------+---+---+ | Given | 11/30/19 | 600 mg | | | | | 18 6:43 | | | | | | AM PDT | | | | +-------+ +--------+---+---+ | Given | 11/29/19 | 600 mg | | | | | 18 8:45 | | | | | | PM PDT | | | | +-------+ +--------+---+---+ +---+---+ | | | +---+---+ + +-------+ +-------+---+---+ | ketorolac (TORADOL) injection | Given | 11/28/19 | 30 mg | | | | 30 mg 30 mg, Intravenous, EVERY | | 18 5:59 | | | | | 6 HOURS (4 times per day), First | | AM PDT | | | | | dose on Fri11/26/17 at 1200, For | | | | | | | 4 doses, If urine output is less | | | | | | | than 240ml/8 hours (30ml/hr) or | | | | | | | if signs of bleeding, contact MD | | | | | | | and hold., Post-op/Phase II | | | | | | + +-------+ +-------+---+---+ +-------+ +-------+---+---+ | Given | 11/28/19 | 30 mg | | | | | 18 12:38 | | | | | | AM PDT | | | | +-------+ +-------+---+---+ | Given | 11/27/19 | 30 mg | | | | | 18 6:28 | | | | | | PM PDT | | | | +-------+ +-------+---+---+ +---+---+ | | | +---+---+ + +-------+ +--------+---+---+ | labetalol (NORMODYNE) tablet | Given | 11/30/19 | 300 mg | | | | 300 mg 300 mg, Oral, 2 TIMES | | 18 8:53 | | | | | DAILY, First dose on Fri11/26/17 | | AM PDT | | | | | at 0915, | | | | | | + +-------+ +--------+---+---+ +-------+ +--------+---+---+ | Given | 11/29/19 | 300 mg | | | | | 18 8:45 | | | | | | PM PDT | | | | +-------+ +--------+---+---+ | Given | 11/29/19 | 300 mg | | | | | 18 8:21 | | | | | | AM PDT | | | | +-------+ +--------+---+---+ +---+---+ | | | +---+---+ + +---------+ +---+-------+---+ | lactated ringers (LR) infusion | New Bag | 11/27/19 | | 125 | | | at 125 mL/hr, Intravenous, | | 18 2:29 | | mL/hr | | | CONTINUOUS, Starting 11/25/17 | | AM PDT | | | | | at 0645, Labor and Delivery | | | | | | + +---------+ +---+-------+---+ +---------+ +---+-------+---+ | New Bag | 11/26/19 | | 125 | | | | 18 6:55 | | mL/hr | | | | PM PDT | | | | +---------+ +---+-------+---+ | New Bag | 11/26/19 | | 125 | | | | 18 10:10 | | mL/hr | | | | AM PDT | | | | +---------+ +---+-------+---+ +---+---+ | | | +---+---+ + +---------+ +---+-------+---+ | lactated ringers (LR) infusion | New Bag | 11/28/19 | | 125 | | | at 125 mL/hr, Intravenous, | | 18 2:20 | | mL/hr | | | CONTINUOUS, Starting 6/13/18 | | AM PDT | | | | | at 0915, Discontinue IV fluid | | | | | | | when tolerating PO well, | | | | | | | | | | | | | + +---------+ +---+-------+---+ +---------+ +---+-------+---+ | New Bag | 11/27/19 | | 125 | | | | 18 6:28 | | mL/hr | | | | PM PDT | | | | +---------+ +---+-------+---+ | New Bag | 11/27/19 | | 125 | | | | 18 12:21 | | mL/hr | | | | PM PDT | | | | +---------+ +---+-------+---+ +---+---+ | | | +---+---+ + +-------+ +--------+---+---+ | metFORMIN (GLUCOPHAGE) tablet | Given | 11/30/19 | 500 mg | | | | 500 mg 500 mg, Oral, 2 TIMES | | 18 8:53 | | | | | DAILY WITH BREAKFAST & DINNER, | | AM PDT | | | | | First dose on Cristina 11/27/17 at | | | | | | | 1245, Follow hospital guidelines | | | | | | | to determine if metFORMIN should | | | | | | | be held following procedures | | | | | | | using IV iodinated contrast., | | | | | | + +-------+ +--------+---+---+ +-------+ +--------+---+---+ | Given | 11/29/19 | 500 mg | | | | | 18 5:54 | | | | | | PM PDT | | | | +-------+ +--------+---+---+ | Given | 11/29/19 | 500 mg | | | | | 18 8:21 | | | | | | AM PDT | | | | +-------+ +--------+---+---+ +---+---+ | | | +---+---+ + +-------+ +-------+---+---+ | metoclopramide (REGLAN) 5 mg/mL | Given | 11/27/19 | 10 mg | | | | injection 10 mg 10 mg, | | 18 6:26 | | | | | Intravenous, EVERY 4 HOURS PRN, | | AM PDT | | | | | Nausea, Vomiting, Starting Tue | | | | | | | 11/25/17 at 0622, Use if | | | | | | | ondansetron and prochlorperazine | | | | | | | ineffective after 30 minutes or | | | | | | | not ordered Protect from light., | | | | | | | Labor and Delivery | | | | | | + +-------+ +-------+---+---+ +-------+ +-------+---+---+ | Given | 11/27/19 | 10 mg | | | | | 18 2:28 | | | | | | AM PDT | | | | +-------+ +-------+---+---+ + +---+ | | | + +---+ | miSOPROStol (CYTOTEC) tablet | | | 600 mcg 600 mcg, Oral, PRN, | | | Post- hemorrhage, Starting | | | Fri11/26/17 at 0847, For 1 dose, | | | If general anesthesia give per | | | rectum. May give only after | | | delivery., | | + +---+ | | | + +---+ | miSOPROStol (CYTOTEC) tablet | | | 800 mcg 800 mcg, Rectal, PRN, | | | Post- hemorrhage, Starting | | | Fri11/26/17 at 0847, For 1 dose, | | | If unable to administer orally. | | | May give only after delivery., | | | | | + +---+ | | | + +---+ + +-------+ +--------+---+---+ | nalbuphine (NUBAIN) injection | Given | 11/27/19 | 2.5 mg | | | | 2.5-5 mg 2.5-5 mg, Intravenous, | | 18 7:55 | | | | | EVERY 4 HOURS PRN, Itching, | | AM PDT | | | | | Starting 11/25/17 at 0616, For | | | | | | | itching, use the following | | | | | | | sequence if meds are ordered: | | | | | | | Give nalbuphine first. If maximum | | | | | | | dose given or ineffective, give | | | | | | | diphenhydramine, Intra-op | | | | | | + +-------+ +--------+---+---+ +---+---+ | | | +---+---+ + +-------+ +------+---+---+ | ondansetron (ZOFRAN ODT) | Given | 11/28/19 | 4 mg | | | | disintegrating tablet 4 mg 4 mg, | | 18 6:06 | | | | | Oral, EVERY 6 HOURS PRN, Nausea, | | PM PDT | | | | | Vomiting, Starting Fri11/26/17 | | | | | | | at 0847, First line agent, | | | | | | | | | | | | | + +-------+ +------+---+---+ +---+---+ | | | +---+---+ + +-------+ +------+---+---+ | ondansetron (ZOFRAN) injection | Given | 11/26/19 | 4 mg | | | | 4 mg 4 mg, Intravenous, EVERY 6 | | 18 11:21 | | | | | HOURS PRN, Nausea, Vomiting, | | PM PDT | | | | | Starting Fri11/25/17 at 0622, | | | | | | | First line agent, Labor and | | | | | | | Delivery | | | | | | + +-------+ +------+---+---+ + +---+ | | | + +---+ | oxytocin in saline (PITOCIN) 30 | | | units/500 mL (60 jin-units/mL) | | | infusion Starting 11/25/17 | | | at 0729, For 1 dose, Macey Jones | | | : antonietta jackson, | | + +---+ | | | + +---+ + + + +---+ +---+ | oxytocin in saline (PITOCIN) 30 | Rate/Dos | 11/27/19 | | 14 mL/hr | | | units/500 mL (60 jin-units/mL) | e Change | 18 3:34 | | | | | infusion at 0-999 mL/hr, | | AM PDT | | | | | Intravenous, TITRATED, Starting | | | | | | | 11/25/17 at 0830, Macey Jones | | | | | | | : antonietta jackson, | | | | | | + + + +---+ +---+ + + +---+ +---+ | Rate/Dose Change | 11/27/19 | | 12 mL/hr | | | | 18 3:00 | | | | | | AM PDT | | | | + + +---+ +---+ | Rate/Dose Change | 11/27/19 | | 10 mL/hr | | | | 18 2:28 | | | | | | AM PDT | | | | + + +---+ +---+ +---+---+ | | | +---+---+ + +-------+ + +---+---+ | 27-0.8 mg multivitamin | Given | 11/30/19 | 1 tablet | | | | 1 tablet 1 tablet, Oral, DAILY, | | 18 8:52 | | | | | First dose on Fri11/26/17 at | | AM PDT | | | | | 0915, | | | | | | + +-------+ + +---+---+ +-------+ + +---+---+ | Given | 11/29/19 | 1 tablet | | | | | 18 8:21 | | | | | | AM PDT | | | | +-------+ + +---+---+ | Given | 11/28/19 | 1 tablet | | | | | 18 10:56 | | | | | | AM PDT | | | | +-------+ + +---+---+ +---+---+ | | | +---+---+ + +-------+ +--------+---+---+ | sodium citrate-citric acid | Given | 11/27/19 | 30 mLs | | | | (BICITRA) liquid 30 mL 30 mL, | | 18 6:26 | | | | | Oral, ONCE, 11/26/17 at 0645, | | AM PDT | | | | | For 1 dose, Dilute in 1 to 3 | | | | | | | ounces water prior to | | | | | | | administration., Pre-op | | | | | | + +-------+ +--------+---+---+ +---+---+ | | | +---+---+ documented in this encounter
--- OUTSIDE RECORDS SUMMARY | ~2019-11-22 | XMS | Encounter Summary ---
Demographics + + + | Address | [address] | | | [place] [address] | + + + | Home Phone | | + + + | Preferred Language | Unknown | + + + | Marital Status | | + + + | Scientologist Affiliation | Unknown | + + + | Race | Unknown | + + + | Ethnic Group | Unknown | + + + Author + + + | Author | [facility] | | | and Arielana | + + + | Organization | [facility] | | | and Arielana | + + + | Address | Unknown | + + + | Phone | Unavailable | + + + Support + + + + + | Name | Relationship | Address | Phone | + + + + + | Aime Rodrigues | ECON | [address] | | | | | [place], [place] | | | | | [address] | | + + + + + | Ritchie Ozuna | ECON | Unknown | | + + + + + Care Team Providers + +------+ + | Care Aerosol Supervisor Name | Role | Phone | + +------+ + PCP | Unavailable | + +------+ + Encounter Details +--------+ + + + + | Date | Type | Department | Care Team | Description | +--------+ + + + + | 06/07/ | [facility] | [facility] | [facility] | | | | | | CENTER [address] | | | | | | [place], [place] | | | | | | [address] | | | | | | [phone] | | | +--------+ + + + [...]
--- OUTSIDE RECORDS SUMMARY | ~2019-11-22 | XMS | Encounter Summary ---
Demographics + + + | Address | [address] | | | [place] [address] | + + + | Home Phone | | + + + | Preferred Language | Unknown | + + + | Marital Status | | + + + | Jain Affiliation | Unknown | + + + | Race | Unknown | + + + | Ethnic Group | Unknown | + + + Author + + + | Author | [facility] | | | and Arielana | + + + | Organization | [facility] | | | and Arielana | [...] , [place] | | | | | [address] | | + + + + + | Ritchie Ozuna | ECON | Unknown | | + + + + + Care Team Providers + +------+ + | Care Admissions Gate Attendant Name | Role | Phone | + [...] + + | 05/31/ | Emergency | [facility] | Robby Sanchez, | Atypical chest pain | | 2018 | | MED CTR EMER[facility]ENCY | MD [address] | (Primary Dx) | | | | CENTER [address] | [facility] | | | | | [place] | [place] [address] | | | | | [address] | [phone] | | | | | [phone] | | | +--------+ + + + [...] sent through Care Everywhere.Chest Pain, Non cardiac (Macanese)documented in this encounter Medications at Time of [...] | | | | | | [employer] | | | | | [...] [address] | [place] | [phone] | | [facility] | | [address] | | | - LABORATORY | | [...] | Quantitativ | quantitative D-Dimer | | [facility] | | | e | assay has [...] [address] | [place] | [phone] | | [facility] | | [address] | | | - LABORATORY | | [...] mL/min/1.73m2 | [facility] | | | IRISH | RATE,ESTIMATED | | MEDICAL | | | | mL/min/1.24a8Uxwc than | | CENTER - | | [...] ST. | [address] | [place] | [phone] | | [facility] | | [address] | | | - LABORATORY | | [...] | | Eosinophils | | | [facility] | | [...] + | [facility] | [address] | [place] | [phone] | | [facility] | | [address] | | | - LABORATORY | | [...] | | | | MELANIE WEISS MD ([id number]) | | | | | | on [...]
--- OUTSIDE RECORDS SUMMARY | ~2019-11-22 | XMS | Encounter Summary ---
Demographics + + + | Address | [address] | | | [place] [address] | + + + | Home Phone | | + + + | Preferred Language | Unknown | + + + | Marital Status | | + + + | Anglican Affiliation | Unknown | + + + | Race | Unknown | + + + | Ethnic Group | Unknown | + + + Author + + + | Author | [facility] | | | and Arielana | + + + | Organization | [facility] | | | and [place]ana [...] , [place] | | | | | [address] | | + + + + + | Ritchie Ozuna | ECON | Unknown | | + + + + + Care Team Providers + +------+ + | Care Jewelry Salesperson Name | Role | Phone | + [...] +--------+--------+ + + + + Encounter Details +--------+---------+ + + + | Date | Type | Department | Care Team | Description | +--------+---------+ + + + | 11/26/ | Surgery | [facility] | Ayesha Cordova | SECTION | | 2018 | | [facility] | DO [address] | | | | [address] | [address] [place] | | | | | [place], [place] | [place] [address] | | | | | [address] | [phone] | | | | | [phone] | | | +--------+---------+ + + + [...] Physician Discharge Summary Patient ID: Imelda Rodrigues [id number] y.o. 1985 Admit date: 11/25/2017 Discharge [...] position. Remember, it can take as long [id number] for a incision to heal. Activity Here [...] anxiety, panic, and/or depression Date Last Reviewed: 01/29/201519990189-8393 [employer]. [address] [place] [address]. All righ ts reserved. This information is [...] Abd: soft. Obese. Appropriately tender. Incision C/D/I. Lynn intact No drainage not ed. FF. NT. [...] Ayesha Cordova DO at 11/14 12:41 PM DAVEAyesha Nascimento DO - 11/27/2017 12:48 PM PDTPt seen and examined. Pain tolerable. PET COUNSELOR DC'd this AM and has been converted [...] All questions answered. Consents signed. Anesthesia, nursing catalyst plant supervisor, and peds notified. Cut time 0645 Jean-Paul Broderick MD - 11/26/2017 2:45 AM PDTAsked to see patient regarding decreasing comfort of labor and recent OB-RN issues regard ing 'high pressure' for the catheter. For the last hour patient has been using PCEA bolus b utton q20 minutes. To exam, patient with bilateral levels (to ice) at T12 or so. Examined epidural pump, beverly díaz while showing what would normally be the [...] placed Continue Pitocin per protocol to adequate [place] units BS 73 BPs 120s-130s/70s Evaluation at 1630 Remains comfortable with epidural. Denies pelvic pressure SVE 5/90/-2. Moderate caput FHTs reactive. Cat I tracing. 130s/mod variability/+accels Ctx q 1-2 min BS 94 BPx 120s-140s/70s Continue Pitocin per protocol. If BS drop below 70 will add D5LR Evaluation at 2135 SVE 5.5/95/-2. Moderate caput FHTs reactive. Cat I Ctx q 1-2 min. [place] units ranging from 150-175 Discussed continued management [...] | + +--------+ + + + | CULTURE, STREP GROUP | Routin | 11/07/2017 | [...] (H) | 70 - 109 mg/dL | [facility] | | | POC | | | [...] + | [facility] | [address] | [place] | [phone] | | [facility] | | [address] | | | - LABORATORY | | [...] [address] | [place] | [phone] | | [facility] | | [address] | | | - LABORATORY | | | | + + + + + POC Glucose (11/28/2017 8:49 PM PDT) + +-------+ + + + | Component | Value | Ref Range | Performed | Pathologist | | | | | At | Signature | + +-------+ + + + | Glucose, | 91 | 70 - 109 mg/dL | [facility] [...] [address] | [place] | [phone] | | [facility] | | [address] | | | - LABORATORY | | [...] [address] | [place] | [phone] | | [facility] | | [address] | | | - LABORATORY | | [...] [address] | [place] | [phone] | | [facility] | | [address] | | | - LABORATORY | | | | + + + + + POC Glucose (11/28/2017 6:25 AM PDT) + +-------+ + + + | Component | Value | Ref Range | Performed | Pathologist | | | | | At | Signature | + +-------+ + + + | Glucose, | 95 | 70 - 109 mg/dL | [facility] [...] + + | Performing | Address | City/State[facility] | Phone Number | | Organization | | | | + + + + + | [facility] | [address] | [place] | [phone] | | [facility] | | [address] | | | - LABORATORY | | [...] [address] | [place] | [phone] | | [facility] | | [address] | | | - LABORATORY | | [...] [address] | [place] | [phone] | | [facility] | | [address] | | | - LABORATORY | | [...] [address] | [place] | [phone] | | [facility] | | [address] | | | - LABORATORY | | [...] | | | | | g/dL | . [facility] | | | | | | [...] | | | | g/dL | [facility] | | | | [...] + + | [facility] | [address] | [address] [place] | [phone] | | [facility] | | [address] | | | - LABORATORY | | [...] [address] | [place] | [phone] | | [facility] | | [address] | | | - LABORATORY | | [...] [address] | [place] | [phone] | | [facility] | | [address] | | | - LABORATORY | | [...] + | [facility] | [address] | [place] | [phone] | | [facility] | | [address] | | | - LABORATORY | | [...] [address] | [place] | [phone] | | [facility] | | [address] | | | - LABORATORY | | [...] [address] | [place] | [phone] | | [facility] | | [address] | | | - LABORATORY | | [...] [address] | [place] | [phone] | | [facility] | | [address] | | | - LABORATORY | | [...] | + + + + + | [facility] | [address] | [place] | [phone] | | [facility] | | [address] | | | - LABORATORY | | [...] [address] | [place] | [phone] | | [facility] | | [address] | | | - LABORATORY | | [...] [address] | [place] | [phone] | | [facility] | | [address] | | | - LABORATORY | | [...] [address] | [place] | [phone] | | [facility] | | [address] | | | - LABORATORY | | [...] + | [facility] | [address] | [place] | [phone] | | [facility] | | [address] | | | - LABORATORY | | | | + + + + + POC Glucose (11/25/2017 8:00 PM PDT) + +-------+ + + + | Component | Value | Ref Range | Performed | Pathologist | | | | | At | Signature | + +-------+ + + + | Glucose, | 71 | 70 - 109 mg/dL | [facility] [...] [address] | [place] | [phone] | | [facility] | | [address] | | | - LABORATORY | | [...] + | [facility] | [address] | [place] | [phone] | | [facility] | | [address] | | | - LABORATORY | | | | + + + + + POC Glucose (11/25/2017 5:40 PM PDT) + +-------+ + + + | Component | Value | Ref Range | Performed | Pathologist | | | | | At | Signature | + +-------+ + + + | Glucose, | 74 | 70 - 109 mg/dL | [facility] [...] + | [facility] | [address] | [place] | [phone] | | [facility] | | [address] | | | - LABORATORY | | [...] [address] | [place] | [phone] | | [facility] | | [address] | | | - LABORATORY | | [...] + | [facility] | [address] | [place] | [phone] | | [facility] | | [address] | | | - LABORATORY | | | | + + + + + POC Glucose (11/25/2017 1:22 PM PDT) + +-------+ + + + | Component | Value | Ref Range | Performed | Pathologist | | | | | At | Signature | + +-------+ + + + | Glucose, | 73 | 70 - 109 mg/dL | [facility] [...] + | [facility] | [address] | [place] | [phone] | | [facility] | | [address] | | | - LABORATORY | | | | + + + + + Type and Screen (11/25/2017 6:32 AM PDT) + + + + + + | Component | Value | Ref Range | Performed | Pathologist | | | | | At | Signature | + + + + + + | ABO | A | | [facility] | | | | | | ST. [...] | | Screen | | | [facility] | | [address] | [place] | | | [facility] | | [address] | | | - BLOOD BANK | [...] [facility] | | | | | | . [facility] | | | | | | [...] + | [facility] | [address] | [place] | [phone] | | [facility] | | [address] | | | - LABORATORY | | [...] Visit Diagnoses Not on filedocumented in this encounter Administered Medications + +--------+ [...] | | | | | | | 18 at 0816 | | | | | [...] | 600 mg 600 mg, Oral, EVERY 6 | | 18 12:47 | | | [...] | mL/hr | | | CONTINUOUS, Starting 11/26/17 | | AM PDT | | | [...] | | | | First dose on [facility] 11/27/17 at | | | | | [...] PDT | | | | +-------+ +--------+---+---+ + +---+ | | | + +---+ | miSOPROStol (CYTOTEC) tablet | | | 600 mcg 600 mcg, Oral, PRN, | | | Post- hemorrhage, Starting | | | 11/26/17 at 0847, For 1 dose, | | [...] | | | + +---+ + +-------+ +------+---+---+ | ondansetron (ZOFRAN ODT) [...] + +---+---+ +---+---+ | | | +---+---+ documented in this encounter
--- OUTSIDE RECORDS SUMMARY | ~2019-11-22 | XMS | Encounter Summary ---
Demographics + + + | Address | [address] | | | [place] [address] | + + + | Home Phone | | + + + | Preferred Language | Unknown | + + + | Marital Status | | + + + | Moravian Affiliation | Unknown | + + + | Race | Unknown | + + + | Ethnic Group | Unknown | + + + Author + + + | Author | [facility] | | | and Arielana | + + + | Organization | [facility] | | | and [...] , [place] | | | | | [address] | | + + + + + | Ritchie Ozuna | ECON | Unknown | | + + + + + Care Team Providers + +------+ + | Care Quarantine Officer Name | Role | Phone | + [...] Diabetes Mellitus | | 2019 | | [facility] | | Management | | | | [facility] [address] | | | | | | [address] [facility], | | | | | | [place] [address] | | | | | | [phone] | | | +--------+ + + + [...]
--- OUTSIDE RECORDS SUMMARY | ~2019-11-22 | XMS | Encounter Summary ---
Demographics + + + | Address | [address] | | | [place] [address] | + + + | Home Phone | | + + + | Preferred Language | Unknown | + + + | Marital Status | | + + + | Islam Affiliation | Unknown | + + + | Race | Unknown | + + + | Ethnic Group | Unknown | + + + Author + + + | Author | [facility] | | | and Arielana | + + + | Organization | [facility] [...] , [place] | | | | | [address] | | + + + + + | Ritchie Ozuna | ECON | Unknown | | + + + + + Care Team Providers + +------+ + | Care Private Mortgage Banker Safe Name | Role | Phone | + +------+ + | Bernard David DO | PCP | | + +------+ + Encounter Details +--------+ + + + + | Date | Type | Department | Care Team | Description | +--------+ + + + + | 07/31/ | Orders Only | [facility] | [facility] | | | 2017 | | [facility]IC ULTRASOUND | MD Emery [address] | | | | | [address] | [address] | | | | | [address] [place], [place] | [place] [address] | | | | | [address] | [phone] | | | | | [phone] | | | +--------+ + + + [...] +--------+ + + + | US OB 14 + WEEKS | Routin | 07/31/2017 | | Results for this | | DETAIL ANATOMY | e | 1:56 PM | | procedure are in the | | SINGLE OR FIRST | | PST | | results section. | | GESTATION | | | | | + +--------+ + + + documented in this encounter Results US OB 14+ Wks Detail Rosalee Single/1st (07/31/2017 1:56 PM PST) + + | Specimen | + + | | + + + + + | Narrative | Performed At | + + + | For All Ultrasounds performed at [facility] : | | | The interpretation may be found under the Media tab within Chart | | | review of a patient's chart approximately 3 days after the exam date. | | | The report will be under the heading of [facility] Ultrasound If you | | | are not able to find the dictation under the media tab, please | | | contact the Stereotype Molder at [phone] [phone]. | | + + + + + | Procedure Note | + + | Rebel Holland Conversion - 02/04/2019 5:18 PM PDT For All Ultrasounds performed | | at [facility] : The interpretation may be found under the Media tab within | | Chart review ofa patient's chart approximately 3 days after the exam date. The | | reportwill be under the heading of [facility] Ultrasound If you are not able to find the | | dictation under the media tab, pleasecontact the Stereotype Molder at [phone] | | [phone]. | |If you are not able to find the dictation under the media tab, please | |contact the Stereotype Molder at [phone] dly [phone]. | | | + + documented in this encounter Visit Diagnoses Not on filedocumented in this encounter"
--- OUTSIDE RECORDS SUMMARY | ~2019-11-22 | XMS | Encounter Summary ---
Demographics + + + | Address | [address] | | | [place] [address] | + + + | Home Phone | | + + + | Preferred Language | Unknown | + + + | Marital Status | | + + + | Holiness Affiliation | Unknown | + + + | Race | Unknown | + + + | Ethnic Group | Unknown | + + + Author + + + | Author | [facility] | | | and [place] | + + + | Organization | [facility] | | | and [...] , [place] | | | | | [address] | | + + + + + | Ritchie Ozuna | ECON | Unknown | | + + + + + Care Team Providers + +------+ + | Care Financial Planning Adviser Name | Role | Phone | + +------+ + | Bernard David DO | PCP | | + +------+ + Reason for Visit + + + | Reason | Comments | + + + | Referral | | + + + Encounter Details +--------+ + + + + | Date | Type | Department | Care Team | Description | +--------+ + + + + | 08/20/ | Telephone | [facility] | Bernard David | Referral | | 2019 | | [facility] | E, DO [address] | | | | | [facility] [address] | [place], [place] | | | | | [address] [place], | [address] | | | | | [place] [address] | [phone] | | | | | [phone] | | | +--------+ + + + [...]
--- OUTSIDE RECORDS SUMMARY | ~2019-11-22 | XMS | Encounter Summary ---
Demographics + + + | Address | [address] | | | [place] [address] | + + + | Home Phone | | + + + | Preferred Language | Unknown | + + + | Marital Status | | + + + | Advent Affiliation | Unknown | + + + | Race | Unknown | + + + | Ethnic Group | Unknown | + + + Author + + + | Author | [facility] | | | and [place] | + + + | Organization | [facility] | | | and [place] [...] [place], [place] | | | | | [address] | | + + + + + | Ritchie Ozuna | ECON | Unknown | | + + + + + Care Team Providers + +------+ + | Care Filter Machine Operator Name | Role | Phone [...] | | | | | | [place] [address] | | | | | | | Phone: | | | | | | | [phone] | | | | | | | Fax: | | | | | | | [phone] | | +--------+ + + + + [...] + + + + | 11/25/ | [facility] | [facility] | Ayesha Cordova | Failure to progress | | 2018 - | Encounter | [facility] | Betzy, DO [address] | in labor (Primary | | | | [address] | [address] [place] | Dx) | | 11/29/ | | [address] [place], [place] | [place], [place] [address] | | | 2018 | | [address] | [phone] | | | | | [phone] | | | +--------+ + + + [...] Physician Discharge Summary Patient ID: Imelda Rodrigues [id number] y.o. 1985 Admit date: 11/25/2017 Discharge [...] position. Remember, it can take as long [id number] for a incision to heal. Activity Here [...] anxiety, panic, and/or depression Date Last Reviewed: 01/29/201519998512-4449 [employer]. [address] [place] [address]. All righ ts reserved. This information is [...] PM PDTPt seen and examined. Pain tolerable. WELDING OPERATOR DC'd this AM and has been converted [...] All questions answered. Consents signed. Anesthesia, nursing harvesting supervisor, and peds notified. Cut time 0645 [...] placed Continue Pitocin per protocol to adequate Laramie units BS 73 BPs 120s-130s/70s Evaluation at 1630 Remains comfortable with epidural. Denies pelvic pressure SVE 5/90/-2. Moderate caput FHTs reactive. Cat I tracing. 130s/mod variability/+accels Ctx q 1-2 min BS 94 BPx 120s-140s/70s Continue Pitocin per protocol. If BS drop below 70 will add D5LR Evaluation at 2135 SVE 5.5/95/-2. Moderate caput FHTs reactive. Cat I Ctx q 1-2 min. Laramie units ranging from 150-175 Discussed continued management [...] + | [facility] | [address] | [place] | [phone] | | [facility] | | [address] | | | - LABORATORY | | [...] [address] | [place] | [phone] | | [facility] | | [address] | | | - LABORATORY | | [...] [address] | [place] | [phone] | | [facility] | | [address] | | | - LABORATORY | | [...] [address] | [place] | [phone] | | [facility] | | [address] | | | - LABORATORY | | [...] [address] | [place] | [phone] | | [facility] | | [address] | | | - LABORATORY | | [...] ST. | [address] | [place] | [phone] | | [facility] | | [address] | | | - LABORATORY | | [...] [address] | [place] | [phone] | | [facility] | | [address] | | | - LABORATORY | | [...] + | [facility] | [address] | [address] [place] | [phone] | | [facility] | | [address] | | | - LABORATORY | | [...] + | [facility] | [address] | [place], [place] | [phone] | | [facility] | | [address] | | | - LABORATORY | | [...] + | [facility] | [address] | [place] | [phone] | | [facility] | | [address] | | | - LABORATORY | | [...] [address] | [place] | [phone] | | [facility] | | [address] | | | - LABORATORY | | [...] [address] | [place] | [phone] | | [facility] | | [address] | | | - LABORATORY | | [...] [address] | [place] | [phone] | | [facility] | | [address] | | | - LABORATORY | | [...] [address] | [place] | [phone] | | [facility] | | [address] | | | - LABORATORY | | [...] [address] | [place] | [phone] | | [facility] | | [address] | | | - LABORATORY | | [...] + | [facility] | [address] | [place] | [phone] | | [facility] | | [address] | | | - LABORATORY | | [...] [address] | [address] [place] | [phone] | | [facility] | | [address] | | | - LABORATORY | | | | + + + + + POC Glucose (11/26/2017 12:12 AM PDT) + +---------+ + + + | Component | Value | Ref Range | Performed | Pathologist | | | | | At | Signature | + +---------+ + + + | Glucose, | 119 (H) | 70 - 109 mg/dL | [facility] | | | POC | | | [...] + | [facility] | [address] | [place] | [phone] | | [facility] | | [address] | | | - LABORATORY | | [...] [address] | [place] | [phone] | | [facility] | | [address] | | | - LABORATORY | | [...] + | [facility] | [address] | [place] | [phone] | | [facility] | | [address] | | | - LABORATORY | | [...] [address] | [place] | [phone] | | [facility] | | [address] | | | - LABORATORY | | [...] + + | Performing | Address | City/State[facility] | Phone Number | | Organization | | | | + + + + + | [facility] | [address] | [place] | [phone] | | [facility] | | [address] | | | - LABORATORY | | [...] + | [facility] | [address] | [place] | [phone] | | [facility] | | [address] | | | - LABORATORY | | [...] + | [facility] | [address] | [place] | [phone] | | [facility] | | [address] | | | - LABORATORY | | [...] [address] | [place] | [phone] | | [facility] | | [address] | | | - LABORATORY | | [...] + | [facility] | [address] | [place] | [phone] | | [facility] | | [address] | | | - LABORATORY | | [...] [address] | [place] | [phone] | | [facility] | | [address] | | | - LABORATORY | | [...] St | [place] | | | [facility] | | [address] | | | - BLOOD BANK | [...] [address] | [place] | [phone] | | [facility] | | [address] | | | - LABORATORY | | [...] + +---------+ +---+---+---+ | fentaNYL 50 mcg/mL WELDING OPERATOR | New Bag | 11/27/19 | | [...] | | | | | | | WELDING OPERATOR Dose(mcg): 10, Incremental | | | | | | | Increase WELDING OPERATOR Dose(mcg): 5, | | | | | | | Maximum WELDING OPERATOR Dose(mcg): 20, | | | | | [...]
--- OUTSIDE RECORDS SUMMARY | ~2019-11-22 | XMS | Encounter Summary ---
Demographics + + + | Address | [address] | | | [place] [address] | + + + | Home Phone | | + + + | Preferred Language | Unknown | + + + | Marital Status | | + + + | Methodist Affiliation | Unknown | + + + | Race | Unknown | + + + | Ethnic Group | Unknown | + + + Author + + + | Author | [facility] | | | and [place] | + + + | Organization | [facility] | | | and [place] [...] , [place] | | | | | [address] | | + + + + + | Ritchie Ozuna | ECON | Unknown | | + + + + + Care Team Providers + +------+ + | Care Director Of Customer Service Name | Role | Phone | + [...] disorder | | 2019 | Visit | [facility] | E, DO [address] | with mixed anxiety | | | | MEDICAL CLIN[facility] [address] | [place], [place] | and depressed mood | | | | [address] [place], | [address] | | | | | [place] [address] | [phone] | | | | | [phone] | | | +--------+---------+ + + + [...] 4:00 PM PSTImelda Rodrigues presents today with [facility] Complaint of: Follow up on medications, pt [...] Procedure: SECTION; Surgeon: Ayesha Cordova, DO; Location: [facility] MAIN OR TUBAL LIGATION 2012 WISDOM [...] accurately reflects the service I personally perfo [facility] and the decisions made by me. Dr. Bernard David DO. 07/17/2018 15:07 documented in this encounter Plan of Treatment Not on filedocumented as of this encounter Visit Diagnoses + + | Diagnosis | + + | Adjustment disorder with mixed anxiety and depressed mood | + + documented in this encounter
--- OUTSIDE RECORDS SUMMARY | ~2019-11-22 | XMS | Encounter Summary ---
Demographics + + + | Address | [address] | | | [place] [address] | + + + | Home Phone | | + + + | Preferred Language | Unknown | + + + | Marital Status | | + + + | Taoism Affiliation | Unknown | + + + | Race | Unknown | + + + | Ethnic Group | Unknown | + + + Author + + + | Author | [facility] | | | and [place] | + + + | Organization | [facility] | | | and [place] [...] , [place] | | | | | [address] | | + + + + + | Ritchie Ozuna | ECON | Unknown | | + + + + + Care Team Providers + +------+ + | Care Prison Warden Name | Role | Phone | + +------+ + | Bernard David DO | PCP | | + +------+ + Encounter Details +--------+ + + + + | Date | Type | Department | Care Team | Description | +--------+ + + + + | 05/28/ | Abstract | [facility] | [facility] | | | 2017 | | [facility] | | | | | | MEDICAL CLIN[facility] [address] | | | | | | [address] [place], | | | | | | [place] [address] | | | | | | [phone] | | | +--------+ + + + [...] | + +--------+ + + + | EXTERNAL LAB: NAYELI | Routin | 02/23/2018 | | Results for this | | | e | | | procedure are in the | | | | | | results section. | + +--------+ + + + | EXTERNAL LAB: AST | Routin | 02/23/2018 | | Results for this | | | e | | | procedure are in the | | | | | | results section. | + +--------+ + + + | EXTERNAL LAB: ALT | Routin | 02/23/2018 | | Results for this | | | e | | | procedure are in the | | | | | | results section. | + +--------+ + + + | EXTERNAL LAB: TSH | Routin | 02/23/2018 | | Results for this | | | e | | | procedure are in the | | | | | | results section. | + +--------+ + + + | EXTERNAL LAB: | Routin | 02/23/2018 | | Results for this | | CHOLESTEROL, NON HDL | e | | | procedure are in the | | LP | | | | results section. | + +--------+ + + + | EXTERNAL LAB: | Routin | 02/23/2018 | | Results for this | | TRIGLYCERIDES | e | | | procedure are in the | | | | | | results section. | + +--------+ + + + | EXTERNAL LAB: | Routin | 02/23/2018 | | Results for this | | CHOLESTEROL, HDL | e | | | procedure are in the | | | | | | results section. | + +--------+ + + + | EXTERNAL LAB: | Routin | 02/23/2018 | | Results for this | | CHOLESTEROL, TOTAL | e | | | procedure are in the | | | | | | results section. | + +--------+ + + + | EXTERNAL LAB: | Routin | 02/23/2018 | | Results for this | | CHOLESTEROL, LDL | e | | | procedure are in the | | | | | | results section. | + +--------+ + + + | EXTERNAL LAB: | Routin | 02/23/2018 | | Results for this | | MICROALBUMIN/CREATIN | e | | | procedure are in the | | INE RATIO, URINE | | | | results section. | + +--------+ + + + | EXTERNAL LAB: | Routin | 02/23/2018 | | Results for this | | MICROALBUMIN, URINE | e | | | procedure are in the | | | | | | results section. | + +--------+ + + + | EXTERNAL LAB: EGFR | Routin | 02/23/2018 | | Results for this | | | e | | | procedure are in the | | | | | | results section. | + +--------+ + + + | EXTERNAL LAB: | Routin | 02/23/2018 | | Results for this | | HEMOGLOBIN A1C | e | | | procedure are in the | | | | | | results section. | + +--------+ + + + documented in this encounter Results External Lab: CBC (02/23/2018) + +-------+ + + + | Component | Value | Ref Range | Performed | Pathologist | | | | | At | Signature | + +-------+ + + + | WBC, | 12.0 | | | | | External | | | | | + +-------+ + + + | HGB, | 12.3 | | | | | External | | | | | + +-------+ + + + | HCT, | 38.1 | | | | | External | | | | | + +-------+ + + + | PLT, | 281 | | | | | External | | | | | + +-------+ + + + External Lab: AST (02/23/2018) + +-------+ + + + | Component | Value | Ref Range | Performed | Pathologist | | | | | At | Signature | + +-------+ + + + | AST, | 15 | | | | | External | | | | | + +-------+ + + + + + | Specimen | + + | Blood | + + External Lab: ALT (02/23/2018) + +-------+ + + + | Component | Value | Ref Range | Performed | Pathologist | | | | | At | Signature | + +-------+ + + + | ALT, | 18 | | | | | External | | | | | + +-------+ + + + + + | Specimen | + + | Blood | + + External Lab: TSH (02/23/2018) + +-------+ + + + | Component | Value | Ref Range | Performed | Pathologist | | | | | At | Signature | + +-------+ + + + | TSH, | 2.59 | | | | | External | | | | | + +-------+ + + + + + | Specimen | + + | Blood | + + External Lab: Cholesterol, Non HDL LP (02/23/2018) + +-------+ + + + | Component | Value | Ref Range | Performed | Pathologist | | | | | At | Signature | + +-------+ + + + | Cholesterol | 120 | | | | | , Total, | | | | | | Non HDL-C | | | | | | (LDL+VLDL), | | | | | | External | | | | | + +-------+ + + + + + | Specimen | + + | Blood | + + External Lab: Triglycerides (02/23/2018) + +-------+ + + + | Component | Value | Ref Range | Performed | Pathologist | | | | | At | Signature | + +-------+ + + + | Triglycerid | 97 | | | | | es, | | | | | | External | | | | | + +-------+ + + + + + | Specimen | + + | Blood | + + External Lab: Cholesterol, HDL (02/23/2018) + +-------+ + + + | Component | Value | Ref Range | Performed | Pathologist | | | | | At | Signature | + +-------+ + + + | HDL | 42.9 | mg/dl | | | | Cholesterol | | | | | | , External | | | | | + +-------+ + + + + + | Specimen | + + | Blood | + + External Lab: Cholesterol, Total (02/23/2018) + +-------+ + + + | Component | Value | Ref Range | Performed | Pathologist | | | | | At | Signature | + +-------+ + + + | Cholesterol | 163 | mg/dl | | | | , Total, | | | | | | External | | | | | + +-------+ + + + + + | Specimen | + + | Blood | + + External Lab: Cholesterol, LDL (02/23/2018) + +-------+ + + + | Component | Value | Ref Range | Performed | Pathologist | | | | | At | Signature | + +-------+ + + + | LDL | 101 | | | | | Cholesterol | | | | | | , Direct, | | | | | | External | | | | | + +-------+ + + + + + | Specimen | + + | Blood | + + External Lab: Microalbumin/Creatinine Ratio, Urine (02/23/2018) + +-------+ + + + | Component | Value | Ref Range | Performed | Pathologist | | | | | At | Signature | + +-------+ + + + | Microalbumi | 6.7 | | | | | n/Creatinin | | | | | | e Ratio, | | | | | | External | | | | | + +-------+ + + + + + | Specimen | + + | Blood | + + External Lab: Microalbumin, Urine (02/23/2018) + +-------+ + + + | Component | Value | Ref Range | Performed | Pathologist | | | | | At | Signature | + +-------+ + + + | Microalbumi | 1.0 | | | | | n, Urine, | | | | | | External | | | | | + +-------+ + + + + + | Specimen | + + | Blood | + + External Lab: eGFR (02/23/2018) + +-------+ + + + | Component | Value | Ref Range | Performed | Pathologist | | | | | At | Signature | + +-------+ + + + | eGFR, | 107 | | | | | External | | | | | + +-------+ + + + + + | Specimen | + + | Blood | + + External Lab: Hemoglobin A1c (02/23/2018) + +-------+ + + + | Component | Value | Ref Range | Performed | Pathologist | | | | | At | Signature | + +-------+ + + + | Hemoglobin | 5.4 | % | | | | A1c, | | | | | | external | | | | | + +-------+ + + + + + | Specimen | + + | Blood | + + documented in this encounter Visit Diagnoses Not on filedocumented in this encounter"
--- OUTSIDE RECORDS SUMMARY | ~2019-11-22 | XMS | Encounter Summary ---
Demographics + + + | Address | [address] | | | [place] [address] | + + + | Home Phone | | + + + | Preferred Language | Unknown | + + + | Marital Status | | + + + | Latter Day Affiliation | Unknown | + + + | Race | Unknown | + + + | Ethnic Group | Unknown | + + + Author + + + | Author | [facility] | | | and [place] | + + + | Organization | [facility] | | | and [place] [...] , [place] | | | | | [address] | | + + + + + | Ritchie Ozuna | ECON | Unknown | | + + + + + Care Team Providers + +------+ + | Care Photo Graphics Librarian Name | Role | Phone | + +------+ + | Bernard David DO | PCP | | + +------+ + Reason for Visit + + + | Reason | Comments | + + + | Lab Order | | + + + Encounter Details +--------+ + + + + | Date | Type | Department | Care Team | Description | +--------+ + + + + | 05/28/ | Telephone | [facility] | [facility] | Lab Order | | 2018 | | [facility] | | | | | | MEDICAL CL[facility] [address] | | | | | | [address] [facility], | | | | | | [place] [address] | | | | | | [phone] | | | +--------+ + + + [...] as of this encounter Plan of Treatment + +------+--------+ + + | Name | Type | Priori | Associated Diagnoses | Order Schedule | | | | ty | | | + +------+--------+ + + | Hemoglobin A1C | Lab | Routin | Controlled type 2 | Expected: | | | | e | diabetes mellitus | 05/28/2018, Expires: | | | | | without | 05/28/2019 | | | | | complication, | | | | | | without long-term | | | | | | current use of | | | | | | insulin (HCC) | | + +------+--------+ + + documented as of this encounter Visit Diagnoses + + | Diagnosis | + + | Controlled type 2 diabetes mellitus without complication, without long-term current | | use of insulin (HCC) - Primary | + + documented in this encounter"
--- OUTSIDE RECORDS SUMMARY | ~2019-11-22 | XMS | Encounter Summary ---
Demographics + + + | Address | [address] | | | [place] [address] | + + + | Home Phone [...] | Author | [facility] | | | and [place] | + + + | Organization | [facility] | | | and [...] , [place] | | | | | [address] | | + + + + + | Ritchie Ozuna | ECON | Unknown | | + + + + + Care Team Providers + +------+ + | Care Party Planner Name | Role | Phone | + +------+ + | Bernard David DO | PCP | | + +------+ + Encounter Details +--------+ + + + + | Date | Type | Department | Care Team | Description | +--------+ + + + + | 01/18/ | Orders Only | [facility] | Provider, | | | 2019 | | [facility] GENERIC OP | [address] | | | | | CONVERSION [address] | [place] | | | | | [address] [place], [place] | [place] [address] | | | | | [address] | | | | | | [phone] | | | +--------+ + + + [...]
--- OUTSIDE RECORDS SUMMARY | ~2019-11-22 | XMS | Encounter Summary ---
Demographics + + + | Address | [address] | | | [place] [address] | + + + | Home Phone | | + + + | Preferred Language | Unknown | + + + | Marital Status | | + + + | Sikh Affiliation | Unknown | + + + | Race | Unknown | + + + | Ethnic Group | Unknown | + + + Author + + + | Author | [facility] | | | and Arielana | + + + | Organization | [facility] | | | and Arielana | [...] , [place] | | | | | [address] | | + + + + + | Ritchie Ozuna | ECON | Unknown | | + + + + + Care Team Providers + +------+ + | Care Frame Tender Name | Role | Phone | + [...] | | | | | [address] | [address] [place] | | | | | [place], [place] | [place] [address] | | | | | [address] | [phone] | | | | | [phone] | | | +--------+---------+ + + + [...] Physician Discharge Summary Patient ID: Imelda Rodrigues [id number] y.o. 1985 Admit date: 11/25/2017 Discharge [...] position. Remember, it can take as long wt2ahnmn for a incision to heal. Activity Here [...] anxiety, panic, and/or depression Date Last Reviewed: 01/29/201519993316-7683 [employer]. [address] [place] [address]. All righ ts reserved. This information is [...] Abd: soft. Obese. Appropriately tender. Incision C/D/I. Pinson intact No drainage not ed. FF. NT. [...] PM PDTPt seen and examined. Pain tolerable. LIBRARIAN DC'd this AM and has been converted [...] All questions answered. Consents signed. Anesthesia, nursing typing pool supervisor, and peds notified. Cut time 0645 [...] placed Continue Pitocin per protocol to adequate [place] units BS 73 BPs 120s-130s/70s Evaluation at 1630 Remains comfortable with epidural. Denies pelvic pressure SVE 5/90/-2. Moderate caput FHTs reactive. Cat I tracing. 130s/mod variability/+accels Ctx q 1-2 min BS 94 BPx 120s-140s/70s Continue Pitocin per protocol. If BS drop below 70 will add D5LR Evaluation at 2135 SVE 5.5/95/-2. Moderate caput FHTs reactive. Cat I Ctx q 1-2 min. Wellfleet units ranging from 150-175 Discussed continued management [...] + | [facility] | [address] | [place] | [phone] | | [facility] | | [address] | | | - LABORATORY | | [...] [address] | [place] | [phone] | | [facility] | | [address] | | | - LABORATORY | | [...] [address] | [place] | [phone] | | [facility] | | [address] | | | - LABORATORY | | [...] [address] | [place] | [phone] | | [facility] | | [address] | | | - LABORATORY | | [...] [address] | [place] | [phone] | | [facility] | | [address] | | | - LABORATORY | | [...] + + | Performing | Address | City/State/[facility]code | Phone Number | | Organization | | | | + + + + + | [facility] | [address] | [place] | [phone] | | [facility] | | [address] | | | - LABORATORY | | [...] [address] | [place] | [phone] | | [facility] | | [address] | | | - LABORATORY | | [...] [address] | [place] | [phone] | | [facility] | | [address] | | | - LABORATORY | | [...] [address] | [place] | [phone] | | [facility] | | [address] | | | - LABORATORY | | [...] [address] | [address] [place] | [phone] | | [facility] | | [address] | | | - LABORATORY | | [...] [address] | [place] | [phone] | | [facility] | | [address] | | | - LABORATORY | | [...] [address] | [place] | [phone] | | [facility] | | [address] | | | - LABORATORY | | [...] + | [facility] | [address] | [place] | [phone] | | [facility] | | [address] | | | - LABORATORY | | [...] [address] | [place] | [phone] | | [facility] | | [address] | | | - LABORATORY | | [...] [address] | [place] | [phone] | | [facility] | | [address] | | | - LABORATORY | | [...] [address] | [place] | [phone] | | [facility] | | [address] | | | - LABORATORY | | [...] [address] | [place] | [phone] | | [facility] | | [address] | | | - LABORATORY | | [...] [address] | [place] | [phone] | | [facility] | | [address] | | | - LABORATORY | | [...] [address] | [place] | [phone] | | [facility] | | [address] | | | - LABORATORY | | [...] [address] | [place] | [phone] | | [facility] | | [address] | | | - LABORATORY | | [...] + | [facility] | [address] | [place] | [phone] | | [facility] | | [address] | | | - LABORATORY | | [...] [address] | [place] | [phone] | | [facility] | | [address] | | | - LABORATORY | | [...] + | [facility] | [address] | [place] | [phone] | | [facility] | | [address] | | | - LABORATORY | | [...] + | [facility] | [address] | [place] | [phone] | | [facility] | | [address] | | | - LABORATORY | | [...] [address] | [place] | [phone] | | [facility] | | [address] | | | - LABORATORY | | [...] + | [facility] | [address] | [place] | [phone] | | [facility] | | [address] | | | - LABORATORY | | [...] + | [facility] | [address] | [place] | [phone] | | [facility] | | [address] | | | - LABORATORY | | [...] St | [place] | | | [facility] | | [address] | | | - BLOOD BANK | [...] + | [facility] | [address] | [place] | [phone] | | [facility] | | [address] | | | - LABORATORY | | [...] | | | | First dose on [facility] 11/27/17 at | | | | [...]
--- OUTSIDE RECORDS SUMMARY | ~2019-11-22 | XMS | Encounter Summary ---
Demographics + + + | Address | [address] | | | [place] [address] | + + + | Home Phone | | + + + | Preferred Language | Unknown | + + + | Marital Status | | + + + | Sikhism Affiliation | Unknown | + + + | Race | Unknown | + + + | Ethnic Group | Unknown | + + + Author + + + | Author | [facility] | | | and Arielana | + + + | Organization | [facility] | | | and Arielana [...] , [place] | | | | | [address] | | + + + + + | Ritchie Ozuna | ECON | Unknown | | + + + + + Care Team Providers + +------+ + | Care Electrical Tech Name | Role | Phone | + [...] + | 05/31/ | Emergency | [facility] | Robby Sanchez, | Atypical chest pain | | 2018 | | [facility] | MD [address] | (Primary Dx) | | | | CENTER [address] | [facility] | | | | | [place] | [place] [address] | | | | | [address] | [phone] | | | | | [phone] | | | +--------+ + + + [...] sent through Care Everywhere.Chest Pain, Non cardiac (American)documented in this encounter Medications at Time of [...] | | | | | | [employer] | | | | | [...] [address] | [place] | [phone] | | [facility] | | [address] | | | - LABORATORY | | [...] | Quantitativ | quantitative D-Dimer | | [facility] | | | e | assay [...] [address] | [place] | [phone] | | [facility] | | [address] | | | - LABORATORY | | [...] mL/min/1.73m2 | [facility] | | | POLISH | RATE,ESTIMATED | | MEDICAL | | | | mL/min/1.15c2Yioq than | | CENTER - | | [...] ST. | [address] | [place] | [phone] | | [facility] | | [address] | | | - LABORATORY | | [...] + | [facility] | [address] | [place] | [phone] | | [facility] | | [address] | | | - LABORATORY | | [...] | | | | MELANIE WEISS MD ([id number]) | | | | | | on [...]
--- OUTSIDE RECORDS SUMMARY | ~2019-11-22 | XMS | Encounter Summary ---
Demographics + + + | Address | [address] | | | [place] [address] | + + + | Home Phone | | + + + | Preferred Language | Unknown | + + + | Marital Status | | + + + | Sikhism Affiliation | Unknown | + + + | Race | Unknown | + + + | Ethnic Group | Unknown | + + + Author + + + | Author | [facility] | | | and Arielana | + + + | Organization | [facility] | | | and Arielana | + + + | Address | Unknown | + + + | Phone | Unavailable | + + + Support + + + + + | Name | Relationship | Address | Phone | + + + + + | Aime Rodrigues | ECON | [address] | | | | | [place] | | | | | [address] | | + + + + + | iRtchie Ozuna | ECON | Unknown | | + + + + + Care Team Providers + +------+ + | Care Hand Marker Name | Role | Phone | + +------+ + | Bernard David DO | PCP | | + +------+ + Encounter Details +--------+ + + + + | Date | Type | Department | Care Team | Description | +--------+ + + + + | 11/21/ | Hospital | [facility] | Ayesha Cordova | Essential | | 2018 | Encounter | MED CTR ULTRASOUND | DO Bet[address] | hypertension; Type 2 | | | | [address] [place] | [address] [place] | diabetes mellitus | | | | [place], [place] | [place] [address] | with hyperosmolarity | | | | [address] | [phone] | without coma, | | | | [phone] | | without long-term | | | | | Andres John, | current use of | | | | | Technologist | insulin (HCC) | +--------+ + + + + Social [...] + + documented as of this encounter Medications at Time of Discharge [...] + +--------+ + + + | US BIOPHYSICAL | Routin | 11/21/2017 | Essential | Results for this | | PROFILE W NON | e | 4:35 PM | hypertension Type 2 | procedure are in the | | STRESS | | PDT | diabetes mellitus | results section. | | | | | with hyperosmolarity | | | | | | without coma, | | | | | | without long-term | | | | | | current use of | | | | | | insulin (HCC) | | + +--------+ + + + documented in this encounter Results US Biophysical Profile W NonStress (11/21/2017 4:35 PM PDT) + + | Specimen | + + | | + + + + + | Narrative | Performed At | + + + | FOLLOW-UP OBSTETRIC ULTRASOUND AND BIOPHYSICAL PROFILE 11/21/2017 | [facility] | | 4:04 PM CLINICAL HISTORY: Essential hypertension; DIABETES TYPE 2, | | | approximately 37 weeks 3 days COMPARISON: ULTRASOUND | | | JULY 18 FINDINGS: A single intrauterine fetus is present, and | | | is in cephalic presentation. The maternal cervix is not well | | | visualized. The placenta is posterior. Amniotic fluid index is | | | within normal limits at 15.6 cm. biometric data: BPD of | | | 8.6 cm equals 34 weeks 6 days. Head circumference of 33.6 cm equals | | | 38 weeks 3 days. Abdominal circumference of 31 cm equals 35 weeks 0 | | | days. Femur length of 7.2 cm equals 37 weeks 0 days. Average | | | sonographic age is 36 weeks 3 days, which is 7 days less than the | | | expected gestational age, compared to a discrepancy of 2 days on | | | previous ultrasound. Estimated weight is 2779 g +/-406 g, | | | which is at the 20th percentile. HC/AC is slightly elevated at | | | 1.08. Regular cardiac activity is present, ranging from | | | 140-152 during the exam. Umbilical arterial S/D ratios are normal, | | | ranging from 2.2-2.4. breathing movement, at least three | | | gross body movements and evidence of tone were all reportedly | | | observed during the exam. IMPRESSION - 1. SINGLE, LIVING | | | INTRAUTERINE FETUS IN CEPHALIC, WITH AVERAGE SONOGRAPHIC AGE 36 WEEKS | | | 3 DAYS, WHICH IS 7 DAYS LESS THAN THE EXPECTED GESTATIONAL AGE. | | | 2. BIOPHYSICAL PROFILE SCORE 01/21. Dictated and Signed by: Yovani | | | MD Jean-Paul Electronically signed: 11/21/2017 7:04 PM | | + + + + + | Procedure Note | + + | Skyler, Rad Results In - 11/21/2017 7:07 PM PDT FOLLOW-UP OBSTETRIC ULTRASOUND AND | | BIOPHYSICAL PROFILE 11/21/2017 4:04 PMCLINICAL HISTORY: Essential hypertension; DIABETES | | TYPE 2, approximately 37weeks 3 days COMPARISON: ULTRASOUND JULY 2FINDINGS: | | A single intrauterine fetus is present, and is in cephalicpresentation. The maternal | | cervix is not well visualized. The placenta isposterior. Amniotic fluid index is | | within normal limits at 15.6 cm. biometric data:BPD of 8.6 cm equals 34 weeks 6 | | days.Head circumference of 33.6 cm equals 38 weeks 3 days.Abdominal circumference of 31 | | cm equals 35 weeks 0 days.Femur length of 7.2 cm equals 37 weeks 0 days.Average | | sonographic age is 36 weeks 3 days, which is 7 days less than theexpected gestational | | age, compared to a discrepancy of 2 days on previousultrasound. Estimated weight | | is 2779 g +/-406 g, which is at the 20thpercentile. HC/AC is slightly elevated at | | 1.08.Regular cardiac activity is present, ranging from 140-152 during the exam. | | Umbilical arterial S/D ratios are normal, ranging from 2.2-2.4. breathing movement, | | at least three gross body movements and evidence offetal tone were all reportedly | | observed during the exam.IMPRESSION -1. SINGLE, LIVING INTRAUTERINE FETUS IN CEPHALIC, | | WITH AVERAGE SONOGRAPHIC AGE36 WEEKS 3 DAYS, WHICH IS 7 DAYS LESS THAN THE EXPECTED | | GESTATIONAL AGE. 2. BIOPHYSICAL PROFILE SCORE 01/21.Dictated and Signed by: Yovani Jeong | | Electronically signed: 11/21/2017 7:04 PM | |expected gestational age, compared to a discrepancy of 2 days on previous | |ultrasound. Estimated weight is 2779 g +/-406 g, which is at the 20th | |percentile. HC/AC is slightly elevated at 1.08. | | | |Regular cardiac activity is present, ranging from 140-152 during the exam. | | Umbilical arterial S/D ratios are normal, ranging from 2.2-2.4. | | | | breathing movement, at least three gross body movements and evidence of | | tone were all reportedly observed during the exam. | | | |IMPRESSION - | |1. SINGLE, LIVING INTRAUTERINE FETUS IN CEPHALIC, WITH AVERAGE SONOGRAPHIC AGE | |36 WEEKS 3 DAYS, WHICH IS 7 DAYS LESS THAN THE EXPECTED GESTATIONAL AGE. | | | |2. BIOPHYSICAL PROFILE SCORE 01/21. | | | |Dictated and Signed by: Yovani Jeong MD | | Electronically signed: 11/21/2017 7:04 PM | + + + +---------+ + + | Performing | Address | City/State/Zipcode | Phone Number | | Organization | | | | + +---------+ + + | [facility] | | | | + +---------+ + + documented in this encounter Visit Diagnoses + + | Diagnosis | + + | Essential hypertension Unspecified essential hypertension | + + | Type 2 diabetes mellitus with hyperosmolarity without coma, without long-term current | | use of insulin (HCC) | + + documented in this encounter"
--- OUTSIDE RECORDS SUMMARY | ~2019-11-22 | XMS | Encounter Summary ---
Demographics + + + | Address | [address] | | | [place] [address] | + + + | Home Phone | | + + + | Preferred Language | Unknown | + + + | Marital Status | | + + + | Yazdanism Affiliation | Unknown | + + + | Race | Unknown | + + + | Ethnic Group | Unknown | + + + Author + + + | Author | [facility] | | | and Arielana | + + + | Organization | [facility] | | | and Arielana [...] [place], [place] | | | | | [address] | | + + + + + | Ritchie Ozuna | ECON | Unknown | | + + + + + Care Team Providers + +------+ + | Care Embedded Hardware Engineer Name | Role | Phone | + +------+ + | Bernard David DO | PCP | | + +------+ + Reason for Referral Self-referral (Routine) +--------+ + + + + + | Status | Reason | Specialty | Diagnoses / | Referred By | Referred To | | | | | Procedures | Contact | Contact | +--------+ + + + + + | Closed | Specialty | Psychiatry | Diagnoses | Joann, | Piedad, | | | Services | | Adjustment | Bernard Buchanan, | Andres, | | | Required | | disorder | DO [address] | Psychologist | | | | | with mixed | [place] | [address] | | | | | anxiety and | [place], [place] | [address] | | | | | depressed | [address] | [place], [place] | | | | | mood | Phone: | [address] | | | | | | [phone] | Phone: | | | | | | Fax: | [phone] | | | | | | [phone] | Fax: | | | | | | | [phone] | +--------+ + + + + + Reason for Visit + + + | Reason | Comments | + + + | Establish Care | Re-establish care, discuss anxiety and post depression | + + + Encounter Details +--------+---------+ + + + | Date | Type | Department | Care Team | Description | +--------+---------+ + + + | 04/13/ | Office | [place] [facility] | Bernard David | Adjustment disorder | | 2018 | Visit | [facility] | E, DO [address] | with mixed anxiety | | | | [facility] | [place] | and depressed mood | | | | [address] [place], | [address] | (Primary Dx) | | | | [place] [address] | [phone] | | | | | [phone] | | | +--------+---------+ + + + [...] + + + | Blood Pressure | 138/100 | 04/13/2018 3:11 PM | | | | | PDT | | + + + + + | Pulse | 95 | 04/13/2018 3:11 PM | | | | | PDT | | + + + + + | Temperature | 36.7 C (98.1 F) | 04/13/2018 3:11 PM | | | | | PDT | | + + + + + | Respiratory Rate | 17 | 04/13/2018 3:11 PM | | | | | PDT | | + + + + + | Oxygen Saturation | 97% | 04/13/2018 3:11 PM | | | | | PDT | | + + + + + | Inhaled Oxygen | - | - | | | Concentration | | | | + + + + + | Weight | 127 kg (280 lb) | 04/13/2018 3:11 PM | | | | | PDT | | + + + + + | Height | 165.1 cm (5' 5") | 04/13/2018 3:11 PM | | | | | PDT | | + + + + + | Body Mass Index | 46.59 | 04/13/2018 3:11 PM | | | | | PDT | | + + + + + documented in this encounter Progress Notes Bernard David, - 04/13/2018 3:00 PM PDT Patient ID: Imelda Rodrigues is a 32 y.o. year old female Chief Complaint: Chief Complaint Patient presents with Establish Care Re-establish care, discuss anxiety and post depression Assessment Adjustment disorder with mixed anxiety and depressed mood (Primary) - ALPRAZolam; Take 0.5-1 tablets by mouth Daily as needed for Anxiety. Dispense: 30 ta blet; Refill: 0 - Ambulatory referral to Psychiatry Марина -Piedad Campos PHD -Start Xanax .50-1 daily PRN for anxiety -Follow up 2 months -consideration of SSRI in future visit 40 minute visit with > 50% time spent in counseling. Subjective: LEONEL Segura presents to the clinic today to re-establish care from [facility], and discuss anxiety and p ost depression. She will have days where she is in a fog, mentally, physically. She will hear everything ar ound her but actual hearing it. This fog makes her really sad. This started about a month ag o. This feeling is different then the first week back to work and being sad for leaving Aidan son. She loves Baron more then anything in the world, and she loves her too. Thing s are going well with their relationship. She does not have the sad feelings at home on the weekends. She has not had any thoughts of harm to her or anyone. These are new feelings to h er. She knows she doesn't have a reason to feel this way she just does. She tries to listen to music, talk with friends, but neither of these help. She doesn't talk to anyone that is s ubjective. She doesn't fell like she has time to talk to someone. She feels stuck at work. S he has used all the time off that she could. She doesn't think she needs a medication, she d oesn't think this will last forever. Her Aime notices that she compares herself to others. She is tired all the time. She is not checking her sugars at home. She has the stuff just has not checked. She is currently taking Labetalol, but she will forget them every once in a while. Current Outpatient Prescriptions Medication Sig Dispense Refill ALPRAZolam (XANAX) 0.5 mg tablet Take 0.5-1 tablets by mouth Daily as needed for Anxiet y. 30 tablet 0 doxylamine (UNISOM) 25 mg tablet Take 25 mg by mouth nightly as needed. ibuprofen (ADVIL,MOTRIN) 600 MG tablet Take 1 tablet by mouth every 6 hours as needed f or Pain. 30 tablet 1 labetalol (NORMODYNE) 300 MG tablet Take 300 mg by mouth 2 times daily. metFORMIN (GLUCOPHAGE) 500 mg tablet Take 1 tablet by mouth 2 times daily (with breakfa st & dinner). 60 tablet 1 No current facility-administered medications for this visit. Patient Active Problem List Diagnosis Term - RADHA 09 Dec 2017 Failure to progress in labor -induced hypertension in third trimester Anemia during in third trimester Gestational diabetes mellitus (GDM) in third trimester Cubital tunnel syndrome on right Diabetes mellitus type 2, controlled, without complications Esophageal reflux Essential hypertension Cervical facet syndrome Hidradenitis suppurativa Hyperlipidemia Nonallopathic lesion of thoracic region Obesity Insomnia Family History Problem Relation Age of Onset Thyroid disease Father Thyroid cancer Father Kidney cancer Father Colon cancer Father Cancer Sister cervical Cancer Maternal Grandmother Lung Cancer Paternal Grandmother Lung Past Surgical History: Procedure Laterality Date SECTION N/A 11/26/2017 Procedure: SECTION; Surgeon: Ayesha Cordova DO; Location: [facility] MAIN OR TUBAL LIGATION 2012 WISDOM TOOTH [...] Negative for dizziness, syncope and headaches. Psychiatric/Behavioral: Negative for self-injury and suicidal ideas. The patient is not ner vous/anxious. Depression, sad Objective: Vitals: BP (!) 138/100 | Pulse 95 | Temp 36.7 C (98.1 F) (Oral) | Resp 17 | Ht 1.651 m (5' 5") | Wt 127 kg (280 lb) | LMP 04/03/2018 | SpO2 97% | ? No | BMI 46.59 kg /m Physical Exam Constitutional: She appears well-developed and well-nourished. HENT: Head: Atraumatic. Eyes: Pupils are equal, round, and reactive to light. EOM are normal. Cardiovascular: Normal rate and regular rhythm. Murmur (soft) heard. Pulmonary/Chest: Effort normal and breath sounds normal. Neurological: She is alert. Psychiatric: She has a normal mood and affect. Entered by Mega Germain, acting as scribe for Dr. Joann DO. The documentation recorded by the scribe accurately reflects the service I personally perfo ed and the decisions made by me. Dr. Bernard David DO. 04/13/2018 16:04Electronically signed by DO khai Tamayo 04/13/2018 4:18 PM Jorge Alberto Kandi MG [place] PROJECT MANAGER INDUST[employer]AL - 04/13/2018 3:00 PM Grover Betty soto presents today with Chief Complaint of: Re-establish care, discuss anxiety and post depression. Current medications verified with her at time of visit. Pt currently shows no s/s of distress, shortness of breath. Vital signs: BP (!) 138/100 | Pulse 95 | Temp 36.7 C (98.1 F) (Oral) | Resp 17 | Ht 1.651 m (5' 5") | Wt 127 kg (280 lb) | LMP 04/03/2018 | SpO2 97% | ? No | BMI 46.59 kg/m Labs Obtained per protocol: None. Verbal Report given to: DO. Kandi Marroquin CC CMA documented in this encounter Plan of Treatment + + +--------+ + + | Name | Type | Priori | Associated Diagnoses | Order Schedule | | | | ty | | | + + +--------+ + + | Psychiatry, External | Outpatient | Routin | Adjustment | Ordered: 04/13/2018 | | - AMB Referral | Referral | e | disorder with mixed | | | | | | anxiety and | | | | | | depressed mood | | + + +--------+ + + documented as of this encounter Visit Diagnoses + + | Diagnosis | + + | Adjustment disorder with mixed anxiety and depressed mood - Primary | + + documented in this encounter
--- OUTSIDE RECORDS SUMMARY | ~2019-11-22 | XMS | Encounter Summary ---
Demographics + + + | Address | [address] | | | [place] [address] | + + + | Home Phone | | + + + | Preferred Language | Unknown | + + + | Marital Status | | + + + | Latter-Day Affiliation | Unknown | + + + | Race | Unknown | + + + | Ethnic Group | Unknown | + + + Author + + + | Author | [facility] | | | and Arielana | + + + | Organization | [facility] [...] [place] | | | | | [address] | | + + + + + | Ritchie Ozuna | ECON | Unknown | | + + + + + Care Team Providers + +------+ + | Care Manager Freelance Name | Role | Phone | + +------+ + | Bernard David DO | PCP | | + +------+ + Reason for Visit + + + | Reason | Comments | + + + | Medication Question | | + + + Encounter Details +--------+ + + + + | Date | Type | Department | Care Team | Description | +--------+ + + + + | 08/20/ | Telephone | [facility] | Kandi Dimas, CC | Medication Question | | 2019 | | [facility] | TECHNICAL SERVICES CONSULTANT | | | | | MEDICAL CLINIC [address] | | | | | | [address] [facility], | | | | | | [place] [address] | | | | | | [phone] | | | +--------+ + + + [...]
--- OUTSIDE RECORDS SUMMARY | ~2019-11-22 | XMS | Encounter Summary ---
Demographics + + + | Address | [address] | | | [place] [address] | + + + | Home Phone | | + + + | Preferred Language | Unknown | + + + | Marital Status | | + + + | Druze Affiliation | Unknown | + + + | Race | Unknown | + + + | Ethnic Group | Unknown | + + + Author + + + | Author | [facility] | | | and Arielana | + + + | Organization | [facility] | | | and [...] [place], [place] | | | | | [address] | | + + + + + | Ritchie Ozuna | ECON | Unknown | | + + + + + Care Team Providers + +------+ + | Care Grain Receiver Name | Role | Phone | + +------+ + | Beranrd David DO | PCP | | + [...] | | | | | depressed | [address] | [place], [place] | | | | | mood | Phone: | [address] | | | | | | [phone] | Phone: | | | | | | Fax: | [phone] | | | | | | [phone] | Fax: | | | | | | | [phone] | +--------+ + + + + + [...] disorder | | 2018 | Visit | [facility] | E, DO [address] | with mixed anxiety | | | | MEDICAL CLIN[facility] [address] | [place] | and depressed mood | | | | [address] [place], | [address] | (Primary Dx) | | | | [place] [address] | [phone] | | | | | [phone] | | | +--------+---------+ + + + [...] the clinic today to re-establish care from [facility], and discuss anxiety and p ost depression. [...] 4:18 PM Jorge Alberto Kandi MG Calzada PLASTER TENDER - 04/13/2018 3:00 PM Grover Betty soto [...]
--- OUTSIDE RECORDS SUMMARY | ~2019-11-22 | XMS | Encounter Summary ---
Demographics + + + | Address | [address] | | | [place] [address] | + + + | Home Phone | | + + + | Preferred Language | Unknown | + + + | Marital Status | | + + + | Tenriism Affiliation | Unknown | + + + | Race | Unknown | + + + | Ethnic Group | Unknown | + + + Author + + + | Author | [facility] | | | and Arielana | + + + | Organization | [facility] | | | and [place] [...] , [place] | | | | | [address] | | + + + + + | Ritchie Ozuna | ECON | Unknown | | + + + + + Care Team Providers + +------+ + | Care Metal Trim Erector Name | Role | Phone | + +------+ + | Bernard David DO | PCP | | + +------+ + Encounter Details +--------+ + + + + | Date | Type | Department | Care Team | Description | +--------+ + + + + | 03/04/ | Abstract | [facility] | Joann Bernard | | | 2018 | | [facility] | E, DO [address] | | | | | MEDICAL CLINIC [address] | [place], [place] | | | | | [address] [place], | [address] | | | | | [place] [address] | [phone] | | | | | [phone] | | | +--------+ + + + [...] + | EXTERNAL LAB: | Routin | 09/07/2018 | | Results for this | | HEMOGLOBIN A1C | e | | | procedure are in the | | | | | | results section. | + +--------+ + + + documented in this encounter Results External Lab: Hemoglobin A1c (09/07/2018) + + + + + + | Component | Value | Ref Range | Performed | Pathologist | | | | | At | Signature | + + + + + + | Hemoglobin | 7.0Comment: [facility], through | % | | | | A1c, | patient's employer | | | | | external | | | | | + + + + + + + + | Specimen | + + | Blood | + + documented in this encounter Visit Diagnoses Not on filedocumented in this encounter"
--- OUTSIDE RECORDS SUMMARY | ~2019-11-22 | XMS | Encounter Summary ---
Demographics + + + | Address | [address] | | | [place] [address] | + + + | Home Phone | | + + + | Preferred Language | Unknown | + + + | Marital Status | | + + + | Islam Affiliation | Unknown | + + + | Race | Unknown | + + + | Ethnic Group | Unknown | + + + Author + + + | Author | [facility] | | | and Arielana | + + + | Organization | [facility] | | | and [...] [place] | | | | | [address] | | + + + + + | Ritchie Ozuna | ECON | Unknown | | + + + + + Care Team Providers + +------+ + | Care Blocker Metal Base Name | Role | Phone | + +------+ + | Bernard David DO | PCP | | + +------+ + Encounter Details +--------+ + + + + | Date | Type | Department | Care Team | Description | +--------+ + + + + | 09/01/ | Orders Only | [facility] | Bernard David | Controlled type 2 | | 2019 | | [facility] | E, DO [address] | diabetes mellitus | | | | MEDICAL CLINIC [address] | [place], [place] | without | | | | [address] [place], | [address] | complication, | | | | [place] [address] | [phone] | without long-term | | | | [phone] | | current use of | | | | | | insulin (HCC) | | | | | | (Primary Dx) | +--------+ + + + + Social [...] | Routin | Controlled type 2 | 1 Occurrences | | | | e | diabetes mellitus | starting 09/02/2019 | | | | | without | until 09/01/2020 | | | | | complication, | | | | | | without long-term | | | | | | current use of | | | | | | insulin (HCC) | | + +------+--------+ + + | Comprehensive | Lab | Routin | Controlled type 2 | 1 Occurrences | | Metabolic Panel | | e | diabetes mellitus | starting 09/02/2019 | | | | | without | until 09/01/2020 | | | | | complication, | | | | | | without long-term | | | | | | current use of | | | | | | insulin (HCC) | | + +------+--------+ + + | Lipid Panel | Lab | Routin | Controlled type 2 | 1 Occurrences | | | | e | diabetes mellitus | starting 09/02/2019 | | | | | without | until 09/01/2020 | | | | | complication, | | | | | | without long-term | | | | | | current use of | | | | | | insulin (HCC) | | + +------+--------+ + + | Microalbumin/Creatin | Lab | Routin | Controlled type 2 | 1 Occurrences | | ine Ratio, Urine | | e | diabetes mellitus | starting 09/02/2019 | | | | | without | until 09/01/2020 | | | | | complication, | | | | | | without long-term | | | | | | current use of | | | | | | insulin ([facility]) | | + +------+--------+ + + documented as of this encounter Visit Diagnoses + + | Diagnosis | + + | Controlled type 2 diabetes mellitus without complication, without long-term current | | use of insulin ([facility]) - Primary | + + documented in this encounter"
--- OUTSIDE RECORDS SUMMARY | ~2019-11-22 | XMS | Encounter Summary ---
Demographics + + + | Address | [address] | | | [place] [address] | + + + | Home Phone | | + + + | Preferred Language | Unknown | + + + | Marital Status | | + + + | Mormonism Affiliation | Unknown | + + + | Race | Unknown | + + + | Ethnic Group | Unknown | + + + Author + + + | Author | [facility] | | | and Arielana | + + + | Organization | [facility] | | | and Arielana [...] , [place] | | | | | [address] | | + + + + + | Ritchie Ozuna | ECON | Unknown | | + + + + + Care Team Providers + +------+ + | Care Pebble Mill Operator Name | Role | Phone | + +------+ + | Bernard David DO | PCP | | + +------+ + Encounter Details +--------+ + + + + | Date | Type | Department | Care Team | Description | +--------+ + + + + | 01/18/ | Orders Only | [facility] | Provider, | | | 2019 | | SYSTEM GENERIC OP | MD [address] | | | | | CONVERSION [address] | [place] | | | | | [address] [place], [place] | [place] [address] | | | | | [address] | | | | | | [phone] | | | +--------+ + + + [...]
--- OUTSIDE RECORDS SUMMARY | ~2019-11-22 | XMS | Encounter Summary ---
Demographics + + + | Address | [address] | | | [place] [address] | + + + | Home Phone | | + + + | Preferred Language | Unknown | + + + | Marital Status | | + + + | Oriental Orthodox Affiliation | Unknown | + + + | Race | Unknown | + + + | Ethnic Group | Unknown | + + + Author + + + | Author | [facility] | | | and Arielana | + + + | Organization | [facility] | | | and [place]elana [...] , [place] | | | | | [address] | | + + + + + | Ritchie Ozuna | ECON | Unknown | | + + + + + Care Team Providers + +------+ + | Care Forestry Engineer Name | Role | Phone | + +------+ + | Bernard David DO | PCP | | + +------+ + Encounter Details +--------+ + + + + | Date | Type | Department | Care Team | Description | +--------+ + + + + | 03/04/ | Abstract | [facility] | Joann Bernard | | | 2018 | | [facility] | E, DO [address] | | | | | MEDICAL CLINIC [address] | [place], [place] | | | | | [address] [place], | [address] | | | | | [place] [address] | [phone] | | | | | [phone] | | | +--------+ + + + [...]
--- OUTSIDE RECORDS SUMMARY | ~2019-11-22 | XMS | Encounter Summary ---
Demographics + + + | Address | [address] | | | [place] [address] | + + + | Home Phone | | + + + | Preferred Language | Unknown | + + + | Marital Status | | + + + | Mormonism Affiliation | Unknown | + + + | Race | Unknown | + + + | Ethnic Group | Unknown | + + + Author + + + | Author | [facility] | | | and Arielana | + + + | Organization | [facility] | | | and Arielana [...] [place] | | | | | [address] | | + + + + + | Ritchie Ozuna | ECON | Unknown | | + + + + + Care Team Providers + +------+ + | Care Transport Coordinator Name | Role | Phone | + [...] Medication Question | | 2019 | | [facility] | 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
--- OUTSIDE RECORDS SUMMARY | ~2019-11-22 | XMS | Encounter Summary ---
Demographics + + + | Address | [address] | | | [place] [address] | + + + | Home Phone | | + + + | Preferred Language | Unknown | + + + | Marital Status | | + + + | Zoroastrianism Affiliation | Unknown | + + + | Race | Unknown | + + + | Ethnic Group | Unknown | + + + Author + + + | Author | [facility] | | | and Arielana | + + + | Organization | [facility] | | | and [place] [...] , [place] | | | | | [address] | | + + + + + | Ritchie Ozuna | ECON | Unknown | | + + + + + Care Team Providers + +------+ + | Care Title I Coordinator Name | Role | Phone | [...] Lab Order | | 2018 | | [facility] | | | | | | MEDICAL CLINIC [address] | | | | | | [facility], | | | | | | [place] [address] | | | | | | [phone] | | | +--------+ + + + [...]
--- OUTSIDE RECORDS SUMMARY | ~2019-11-22 | XMS | Encounter Summary ---
Demographics + + + | Address | [address] | | | [place] [address] | + + + | Home Phone | | + + + | Preferred Language | Unknown | + + + | Marital Status | | + + + | Hindu Affiliation | Unknown | + + + | Race | Unknown | + + + | Ethnic Group | Unknown | + + + Author + + + | Author | [facility] | | | and Arielana | + + + | Organization | [facility] | | | and [place] [...] , [place] | | | | | [address] | | + + + + + | Ritchie Ozuna | ECON | Unknown | | + + + + + Care Team Providers + +------+ + | Care Internal Review And Audit Compliance Name | Role | Phone | + [...] [address] | | | | | [address] [place], [place] | [place] [address] | | | | | [address] | [phone] | | | | | [phone] | | | +--------+ + + + [...] + | For All Ultrasounds performed at [facility] : | | | The interpretation [...] tab, please | | | contact the Stand Grinder at [phone] ftm [phone]. | | + + + + + | Procedure Note | + + | Skyler, Rad Conversion - 02/04/2019 5:18 PM PDT For All Ultrasounds performed | | at [facility] : The interpretation may be found under the Media tab within | | Chart review ofa patient's chart approximately 3 days after the exam date. The | | reportwill be under the heading of M Ultrasound If you are not able to find the | | dictation under the media tab, pleasecontact the Stand Grinder at [phone] ext | | [phone]. | |If you are not able to find the dictation under the media tab, please | |contact the Stand Grinder at [phone] [phone]. | | | + + documented in this encounter Visit Diagnoses Not on filedocumented in this encounter"
--- OUTSIDE RECORDS SUMMARY | ~2019-11-22 | XMS | Encounter Summary ---
Demographics + + + | Address | [address] | | | [place] [address] | + + + | Home Phone | | + + + | Preferred Language | Unknown | + + + | Marital Status | | + + + | Uatsdin Affiliation | Unknown | + + + | Race | Unknown | + + + | Ethnic Group | Unknown | + + + Author + + + | Author | [facility] | | | and Arielana | + + + | Organization | [facility] | | | and [...] [place] | | | | | [address] | | + + + + + | Ritchie Ozuna | ECON | Unknown | | + + + + + Care Team Providers + +------+ + | Care Senior Web Services Developer Name | Role | Phone | + +------+ + | Bernard David DO | PCP | | + +------+ + Encounter Details +--------+ + + + + | Date | Type | Department | Care Team | Description | +--------+ + + + + | 11/21/ | Hospital | [facility] | Ayesha Cordova | Essential | | 2018 | Encounter | MED CTR ULTRASOUND | DO [address] | hypertension; 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
--- OUTSIDE RECORDS SUMMARY | ~2019-11-22 | XMS | Encounter Summary ---
Demographics + + + | Address | [address] | | | [place] [address] | + + + | Home Phone | | + + + | Preferred Language | Unknown | + + + | Marital Status | | + + + | Nondenominational Affiliation | Unknown | + + + | Race | Unknown | + + + | Ethnic Group | Unknown | + + + Author + + + | Author | [facility] | | | and Arielana | + + + | Organization | [facility] | | | and [place]elana | [...] , [place] | | | | | [address] | | + + + + + | Ritchie Ozuna | ECON | Unknown | | + + + + + Care Team Providers + +------+ + | Care Educational Administration Teacher Name | Role | Phone | + [...] | | | | | [address] | [address] [place] | | | | | [place], [place] | [place] [address] | | | | | [address] | [phone] | | | | | [phone] | | | +--------+---------+ + + + [...] Physician Discharge Summary Patient ID: Imelda Rodrigues [id number] y.o. 1985 Admit date: 11/25/2017 Discharge [...] position. Remember, it can take as long [id number] for a incision to heal. Activity Here [...] anxiety, panic, and/or depression Date Last Reviewed: 01/29/201519997758-0778 [employer]. [address] [place] [address]. All righ ts reserved. This information is [...] Abd: soft. Obese. Appropriately tender. Incision C/D/I. [place] intact No drainage not ed. FF. NT. [...] PM PDTPt seen and examined. Pain tolerable. 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 Consents signed. Anesthesia, nursing cloth napping supervisor, and peds notified. Cut time 0645 [...] BPs. FHTs remain Cat I. P M Ayehsa Galicia DO - 11/25/2017 9:23 PM PDTLabor progress notes from today Late entry from evaluation at 1245: Pt comfortable with epidural. SVE 3/90-2. Anterior Amniotomy performed. Clear fluid noted FHTs reactive. Cat I tracing. 130s/mod variability/+accels Ctx q 1 min IUPC and FECG placed Continue Pitocin per protocol to adequate [place] units BS 73 BPs 120s-130s/70s Evaluation at 1630 Remains comfortable with epidural. Denies pelvic pressure SVE 5/90/-2. Moderate caput FHTs reactive. Cat I tracing. 130s/mod variability/+accels Ctx q 1-2 min BS 94 BPx 120s-140s/70s Continue Pitocin per protocol. If BS drop below 70 will add D5LR Evaluation at 2135 SVE 5.5/95/-2. Moderate caput FHTs reactive. Cat I Ctx q 1-2 min. [place] units ranging from 150-175 Discussed continued management [...] + | [facility] | [address] | [address] [place] | [phone] | | [facility] | | [address] | | | - LABORATORY | | [...] [address] | [place] | [phone] | | [facility] | | [address] | | | - LABORATORY | | [...] [address] | [place] | [phone] | | [facility] | | [address] | | | - LABORATORY | | [...] [address] | [place] | [phone] | | [facility] | | [address] | | | - LABORATORY | | [...] [address] | [place] | [phone] | | [facility] | | [address] | | | - LABORATORY | | [...] + + | Performing | Address | City/State[facility] | Phone Number | | Organization | | | | + + + + + | [facility] | [address] | [place] | [phone] | | [facility] | | [address] | | | - LABORATORY | | [...] [address] | [address] [place] | [phone] | | [facility] | | [address] | | | - LABORATORY | | [...] [address] | [place] | [phone] | | [facility] | | [address] | | | - LABORATORY | | [...] [address] | [place] | [phone] | | [facility] | | [address] | | | - LABORATORY | | [...] [address] | [address] [place] | [phone] | | [facility] | | [address] | | | - LABORATORY | | [...] [address] | [place] | [phone] | | [facility] | | [address] | | | - LABORATORY | | [...] [address] | [place] | [phone] | | [facility] | | [address] | | | - LABORATORY | | [...] + | [facility] | [address] | [place] | [phone] | | [facility] | | [address] | | | - LABORATORY | | [...] [address] | [place] | [phone] | | [facility] | | [address] | | | - LABORATORY | | [...] [address] | [address] [place] | [phone] | | [facility] | | [address] | | | - LABORATORY | | [...] [address] | [place] | [phone] | | [facility] | | [address] | | | - LABORATORY | | [...] [address] | [place] | [phone] | | [facility] | | [address] | | | - LABORATORY | | [...] [address] | [address] [place] | [phone] | | [facility] | | [address] | | | - LABORATORY | | [...] | [address] | [place] | [phone] | | [facility] | | [address] | | | - LABORATORY | | [...] [address] | [address] [place] | [phone] | | [facility] | | [address] | | | - LABORATORY | | [...] + | [facility] | [address] | [address] [place] | [phone] | | [facility] | | [address] | | | - LABORATORY | | [...] [address] | [place] | [phone] | | [facility] | | [address] | | | - LABORATORY | | [...] + | [facility] | [address] | [place] | [phone] | | [facility] | | [address] | | | - LABORATORY | | [...] + | [facility] | [address] | [address] [place] | [phone] | | [facility] | | [address] | | | - LABORATORY | | [...] [address] | [place] | [phone] | | [facility] | | [address] | | | - LABORATORY | | [...] + | [facility] | [address] | [place] | [phone] | | [facility] | | [address] | | | - LABORATORY | | [...] + | [facility] | [address] | [address] [place] | [phone] | | [facility] | | [address] | | | - LABORATORY | | [...] St | [place] | | | [facility] | | [address] | | | - BLOOD BANK | [...] + | [facility] | [address] | [place] | [phone] | | [facility] | | [address] | | | - LABORATORY | | [...] | | | | First dose on [facility] 11/27/17 at | | | | | [...]
--- OUTSIDE RECORDS SUMMARY | ~2019-11-22 | XMS | Encounter Summary ---
Demographics + + + | Address | [address] | | | [place] [address] | + + + | Home Phone | | + + + | Preferred Language | Unknown | + + + | Marital Status | | + + + | Jew Affiliation | Unknown | + + + | Race | Unknown | + + + | Ethnic Group | Unknown | + + + Author + + + | Author | [facility] | | | and Arielana | + + + | Organization | [facility] | | | and [place]elana [...] [place], [place] | | | | | [address] | | + + + + + | Ritchie Ozuna | ECON | Unknown | | + + + + + Care Team Providers + +------+ + | Care Outside Machinist Name | Role | Phone | + +------+ + | Bernard David DO | PCP | | + +------+ + Reason for Visit Auth/Cert +--------+--------+ + + + + | [...] + + + + | 11/25/ | Anesthesia | [facility] | Herbie Aguilar | | | 2017 | Event | [facility] | P, MD [address] | | | | | [address] | [address] [place] | | | | | [place] | [address] | | | | | [address] | [phone] | | | | | [phone] | | | | | | | Jean-Paul Magallanes MD | | | | | | [address] | | | | | | [place], [place] | | | | | | [address] | | | | | | | | +--------+ + + + + Anesthesia Record + + + + + | Procedure Name | Responsible | Anesthesia Start | Anesthesia Stop Time | | | Anesthesiologist | Time | | + + + + + | SECTION | Herbie Aguilar, | 11/25/17 0708 | 11/26/17 0743 | | (N/A Jamal) Leyla NICHOLS | | | + + + + + +----+---+ + + | Da | T | Event | Comment | | te | i | | | | | m | | | | | e | | | +----+---+ + + | 06 | 0 | | | | /1 | 7 | | | | 2/ | 0 | | | | 20 | 7 | | | | 18 | | | | +----+---+ + + | | 0 | Pre-Procedu | | | | 7 | ral Timeout | | | | 0 | Completed | | | | 8 | | | +----+---+ + + | | 0 | An Start | Reassessment prior to anesthesia induction/procedure. | | | 7 | | | | | 0 | | | | | 8 | | | +----+---+ + + | | 0 | Test Dose | | | | 7 | | | | | 1 | | | | | 9 | | | +----+---+ + + | | 0 | Epi/spinal | | | | 7 | Stop | | | | 2 | | | | | 1 | | | +----+---+ + + | | 0 | Epidural | | | | 7 | Bolus | | | | 2 | | | | | 3 | | | +----+---+ + + | | 0 | Epidural | | | | 7 | Infusion | | | | 2 | Started | | | | 4 | | | +----+---+ + + | | 0 | Out of OR | | | | 8 | Device Stop | | | | 3 | | | | | 5 | | | +----+---+ + + | | 1 | Quick Note | Per OB-RN, the patient has experienced as much labor discomfort | | | 1 | | as she wishes to. Rate increased to 14 mL/hour with an initial | | | 1 | | PCEA of 5 mL. | | | 9 | | | +----+---+ + + | | 1 | Quick Note | Patient doing well. Very pleased with epidural. In active labor | | | 7 | | now. | | | 3 | | | | | 9 | | | +----+---+ + + | 06 | 0 | Quick Note | Asked to see patient regarding decreasing comfort of labor and | | /1 | 2 | | recent OB-RN issues regarding 'high pressure' for the catheter. | | 3/ | 4 | | For the last hour patient has been using PCEA bolus button q20 | | 20 | 5 | | minutes. To exam, patient with bilateral levels (to ice) at T12 | | 18 | | | or so. Examined epidural pump, which while showing what would | | | | | normally be the set parameters, on its home page was set to "0.1 | | | | | mL/hr KVO." Disconnected to test the integrity of the catheter | | | | | via bolus of 5 mL 2% lidocaine -- catheter clearly not kinked, | | | | | medicine given very easily. Strongly suspect her catheter was | | | | | accidentally set to lower rate some time ago and epidural has | | | | | likely been wearing off for awhile. Exchanging epidural pump and | | | | | setting aside this pump with the KVO issue. Reset to standard | | | | | settings. | +----+---+ + + | | 0 | Quick Note | Lack of progress concerning for possible future C/S. However, | | | 3 | | response to lidocaine bolus is promising for use if C/S deemed | | | 1 | | necessary. | | | 0 | | | +----+---+ + + | | 0 | An Checkout | Pre-use anesthesia machine/equipment checkout. OR #4 Ready. | | | 6 | | Anesthesia Ready. | | | 2 | | | | | 0 | | | +----+---+ + + | | 0 | An Start | | | | 6 | Data | | | | 2 | | | | | 5 | | | +----+---+ + + | | 0 | Epidural | | | | 6 | Bolus | | | | 3 | | | | | 0 | | | +----+---+ + + | | 0 | an cuate now | Arrive OR 4 | | | 6 | | | | | 3 | | | | | 3 | | | +----+---+ + + | | 0 | Antibiotic | PSR | | | 6 | Given | | | | 4 | | | | | 0 | | | +----+---+ + + | | 0 | Surg Clmp | | | | 6 | Tst Neg | | | | 4 | | | | | 8 | | | +----+---+ + + | | 0 | First | | | | 6 | Inc/Proc St | | | | 4 | | | | | 9 | | | +----+---+ + + | | 0 | Ut Incision | | | | 6 | | | | | 5 | | | | | 5 | | | +----+---+ + + | | 0 | Baby Deliv | Baby Boy | | | 6 | | | | | 5 | | | | | 6 | | | +----+---+ + + | | 0 | Placenta | | | | 6 | Delivered | | | | 5 | | | | | 7 | | | +----+---+ + + | | 0 | Quick Note | C/o burning pain at incision. Toradol. | | | 7 | | | | | 2 | | | | | 0 | | | +----+---+ + + | | 0 | Epidural | 11 cm at skin. Tip intact. | | | 7 | Cath | | | | 3 | Removed | | | | 5 | | | +----+---+ + + | | 0 | an cuate now | PACU 5 | | | 7 | | | | | 3 | | | | | 8 | | | +----+---+ + + | | 0 | an stop | | | | 7 | data | | | | 3 | | | | | 8 | | | +----+---+ + + | | 0 | An Stop | Patient handed off to recovery nurse. | | | 4 | | | | | 3 | | | +----+---+ + + +------+ | Meds | +------+ + + + | Name | Total | + + + | lidocaine 1.5%-EPINEPHrine | 4.5 mL | | 1:200,000 (PF) | | + + + | fentaNYL 2 mcg/mL + bupivacaine | 289.5 mL | | 0.125% in saline (PF) | | + + + | fentaNYL injection (2 mL) | 100 mcg | + + + | oxytocin (Bolus) | 20 Units | + + + | ketorolac | 30 mg | + + + | ceFAZolin | 3 g | + + + | lidocaine 2% (Epidural) | 25 mL | + + + | lactated ringers (LR) bolus 1,000 | 1,000 mL | | mL | | + + + | lactated ringers (LR) infusion | 3,080 mL | + + + + + | Name | + + | N2O Flow Rate (L/Min) | + + | O2 Flow Rate (L/Min) | + + | Insp O2 | + + | Exp SEV | + + | Air Flow Rate (L/Min) | + + + + | No blood administrations on file. | + + +--------+ + + + | Type | Details | Placement | Removal | +--------+ + + + | Urethr | 11/25/17; 11/27/17; 0728 | 11/25/17 0000 by | 11/27/17727 by | | al | | Shannon Delgadillo, | Dean Coy RN | | Cathet | | RN | | | er | | | | +--------+ + + + | Periph | 11/25/17; 629; Right; Proximal; | 11/25/17629 by Choudhury | 11/28/17451 by | | eral | Hand; [id number] catheter | Reena Jones RN | Saran Barba, | | IV | system; 18 gauge, 06/19 in | | RN | | | length; Hematology, Blood Bank; | | | | | 0; distraction, tolerated well; | | | | | no longer indicated, removed per | | | | | policy/procedure, site care per | | | | | policy/procedure, catheter/device | | | | | intact; healing within | | | | | expectations; 11/28/17; 0452 | | | +--------+ + + + | Epidur | 11/25/17; 720 (created via | 11/25/17720 by | 11/26/17 07 by | | al/Spi | procedure documentation); Patient | Jean-Paul Magallanes MD | Herbie Aguilar, | | nal | ID'd and PARQ as above. Seated. | | MD | | | Landmarks challenging to | | | | | palpate; unable to fully decipher | | | | | midline. Sterile prep/drape. | | | | | 1% Lidocaine local anesthetic to | | | | | skin entry site. 17g Tuohy to | | | | | Epidural space on with LORTS at 7 | | | | | cm. Catheter threaded easily to | | | | | 11 cm at the skin. Negative | | | | | test dose. Secured with tegaderm | | | | | and catheter junctions taped. | | | | | Pump administration settings | | | | | reviewed with RN. No | | | | | complications. Block placement | | | | | technically challenging, but | | | | | achieved on first attempt. Net | | | | | correct direction was left of | | | | | perceived midline. ; 11/26/17; | | | | | 0735 | | | +--------+ + + + | Read | 11/26/17; 0655; Bilateral; | 11/26/17 0655 by | 11/29/17 1430 by | | only - | abdomen; 11/29/17; 1430 | Radha Brown RN | Flora Hunt RN | | | | | | | Incisi | | | | | on | | | | +--------+ + + + documented in this encounter Social History + +-------+ +--------+------+ | Tobacco [...] this encounter Last Filed Vital Signs + +---------+ + + | Vital Sign | Reading | Time Taken | Comments | + +---------+ + + | Blood Pressure | 134/74 | 11/25/2017 8:32 AM | | | | | PDT | | + +---------+ + + | Pulse | - | - | | + +---------+ + + | Temperature | - | - | | + +---------+ + + | Respiratory Rate | - | - | | + +---------+ + + | Oxygen Saturation | 99% | 11/25/2017 8:32 AM | | | | | PDT | | + +---------+ + + | Inhaled Oxygen | - | - | | | Concentration | | | | + +---------+ + + | Weight | - | - | | + +---------+ + + | Height | - | - | | + +---------+ + + | Body Mass Index | - | - | | + +---------+ + + documented in this encounter Plan of Treatment Not on filedocumented as of this encounter Procedures + +--------+ + + + | Procedure Name | Priori | Date/Time | Associated Diagnosis | Comments | | | ty | | | | + +--------+ + + + | ANE EPIDURAL NOTE | Routin | 11/25/2017 | | Results for this | | | e | 8:36 AM | | procedure are in the | | | | PDT | | results section. | + +--------+ + + + documented in this encounter Results Anesthesia Epidural Note (11/25/2017 8:36 AM PDT) + + + | Narrative | Performed At | + + + | Jean-Paul Magallanes MD 11/25/2017 8:47 Neuraxial Procedure Note | | | 11/25/2017 7:21 Procedure: epidural catheter placement Provider | | | requested procedure: McCollaugh Indication: labor analgesia | | | Preprocedure check: patient identified, procedure and rescue equipment | | | checked, preevaluation including airway assessment complete, | | | risks/benefits discussed, consent obtained, timeout performed, | | | reassessment prior to procedure and monitors applied Patient | | | position: sitting Preparation: chlorhexidine/isopropyl alcohol, | | | Introducer used: no Local anesthetic infiltration volume: 1 mL | | | Procedure level: L3-4 Approach: midline Needle: Tuohy Needle size: | | | 17 g Needle length: 9 cm Loss of resistance to: saline Loss of | | | resistance: 7 cm Catheter depth at skin: 11 cm Medication | | | administered through: catheter and incremental injection Negative | | | findings: no blood aspirated, no CSF and no paresthesia Test dose | | | response: negative Attempts: 1 Ease of procedure: difficult | | | Dressing: transparent dressing Performing provider: JEAN-PAUL MAGALLANES | | | Comments: Patient ID'd and PARQ as above. Seated. Landmarks | | | challenging to palpate; unable to fully decipher midline. Sterile | | | prep/drape. 1% Lidocaine local anesthetic to skin entry site. | | | 17g Tuohy to Epidural space on with LORTS at 7 cm. Catheter | | | threaded easily to 11 cm at the skin. Negative test dose. | | | Secured with tegaderm and catheter junctions taped. Pump | | | administration settings reviewed with RN. No complications. | | | Block placement technically challenging, but achieved on first | | | attempt. Net correct direction was left of perceived midline. | | | Please see anesthesia record or flowsheet for vital sign | | | documentation and see anesthesia record or MAR for all medication | | | documentation. Electronically Signed by: Jean-Paul Magallanes MD | | | ESig date/time: 11/25/2017 8:36 | | + + + + + | Procedure Note | + + | Jean-Paul Magallanes MD - 11/25/2017 8:36 AM PDT Neuraxial Procedure Note11/25/2017 | | 7:21Procedure: epidural catheter placementProvider requested procedure: | | McCollaughIndication: labor analgesiaPreprocedure check: patient identified, procedure | | and rescue equipment checked, preevaluation including airway assessment complete, | | risks/benefits discussed, consent obtained, timeout performed, reassessment prior to | | procedure and monitors appliedPatient position: sittingPreparation: | | chlorhexidine/isopropyl alcohol, Introducer used: noLocal anesthetic infiltration | | volume: 1 mLProcedure level: L3-4Approach: midlineNeedle: TuohyNeedle size: 17 gNeedle | | length: 9 cmLoss of resistance to: salineLoss of resistance: 7 cmCatheter depth at skin: | | 11 cmMedication administered through: catheter and incremental injectionNegative | | findings: no blood aspirated, no CSF and no paresthesiaTest dose response: | | negativeAttempts: 1Ease of procedure: difficultDressing: transparent dressingPerforming | | provider: JEAN-PAUL MAGALLANES TComments: Patient ID'd and PARQ as above. Seated. Landmarks | | challenging to palpate; unable to fully decipher midline. Sterile prep/drape. 1% | | Lidocaine local anesthetic to skin entry site. 17g Tuohy to Epidural space on with | | LORTS at 7 cm. Catheter threaded easily to 11 cm at the skin. Negative test dose. | | Secured with tegaderm and catheter junctions taped. Pump administration settings | | reviewed with RN. No complications. Block placement technically challenging, but | | achieved on first attempt. Net correct direction was left of perceived midline. Please | | see anesthesia record or flowsheet for vital sign documentation and see anesthesia | | record or MAR for all medication documentation. Electronically Signed by: Jean-Paul Gonzalez | | MD Qing Magallanes date/time: 11/25/2017 8:36 | |Attempts: 1 | |Ease of procedure: difficult | |Dressing: transparent dressing | |Performing provider: JEAN-PAUL MAGALLANES | |Comments: Patient ID'd and PARQ as above. Seated. Landmarks challenging to palpate; unabl e to fully decipher midline. Sterile prep/drape. 1% Lidocaine local anesthetic to skin ent ry site. 17g Tuohy to Epidural | |space on with LORTS at 7 cm. Catheter threaded easily to 11 cm at the skin. Negative test dose. Secured with tegaderm and catheter junctions taped. Pump administration settings re viewed with RN. No complications. | |Block placement technically challenging, but achieved on first attempt. Net correct direct ion was left of perceived midline. | | | |Please see anesthesia record or flowsheet for vital sign documentation and see anesthesia r ecord or MAR for all medication documentation. | | | |Electronically Signed by: MD Qing Carbajal date/time: 11/25/2017 8:36 | + + documented in this encounter Visit Diagnoses Not on filedocumented in this encounter Administered Medications + +--------+ +------+------+------+ | Medication Order | MAR | Action | Dose | Rate | Site | | | Action | Date | | | | + +--------+ +------+------+------+ | ceFAZolin (ANCEF, KEFZOL) | Given | 11/27/19 | 3 g | | | | injection Intravenous, PRN, | | 18 6:40 | | | | | Starting 11/26/17 at 0640, | | AM PDT | | | | | Anesthesia Intra-op | | | | | | + +--------+ +------+------+------+ +---+---+ | | | +---+---+ + +-------+ +--------+---+---+ | fentaNYL (PF) injection | Given | 11/27/19 | 50 mcg | | | | INTRATHECAL, PRN, Pain, Starting | | 18 7:14 | | | | | 11/26/17 at 0709, Anesthesia | | AM PDT | | | | | Intra-op | | | | | | + +-------+ +--------+---+---+ +-------+ +--------+---+---+ | Given | 11/27/19 | 50 mcg | | | | | 18 7:09 | | | | | | AM [...] | ketorolac (TORADOL) injection | Given | 11/27/19 | 30 mg | | | | Intravenous, PRN, Pain, Starting | | 18 7:20 | | | | | 11/26/17 at 0720, Anesthesia | | AM PDT | | | | | Intra-op | | | | | | + +-------+ +-------+---+---+ +---+---+ | | | +---+---+ + +---------+ +---+---+---+ | lactated ringers (LR) bolus | New Bag | 11/27/19 | | | | | 1,000 mL 1,000 mL, Intravenous, | | 18 7:30 | | | | | Administer over 30 Minutes, ONCE, | | AM PDT | | | | | 11/25/17 at 0645, For 1 dose, | | | | | | | Start warm fluid bolus when | | | | | | | epidural procedure is starting., | | | | | | | Intra-op | | | | | | + +---------+ +---+---+---+ +---------+ +---+---+---+ | New Bag | 11/27/19 | | | | | | 18 6:57 | | | | | | AM PDT | | | | +---------+ +---+---+---+ +---+---+ | | | +---+---+ + +-------+ +-------+---+---+ | lidocaine (PF) 2% injection | Given | 11/27/19 | 5 mLs | | | | EPIDURAL, PRN, Starting Wed | | 18 7:20 | | | | | 11/26/17 at 0630, Anesthesia | | AM PDT | | | | | Intra-op | | | | | | + +-------+ +-------+---+---+ +-------+ +-------+---+---+ | Given | 11/27/19 | 5 mLs | | | | | 18 6:41 | | | | | | AM PDT | | | | +-------+ +-------+---+---+ | Given | 11/27/19 | 5 mLs | | | | | 18 6:38 | | | | | | AM PDT | | | | +-------+ +-------+---+---+ +---+---+ | | | +---+---+ + +-------+ +---------+---+---+ | lidocaine 1.5%-EPINEPHrine | Given | 11/26/19 | 1.5 mLs | | | | 1:200,000 (PF) injection | | 18 7:23 | | | | | EPIDURAL, PRN, Starting Tue | | AM PDT | | | | | 11/25/17 at 0719, Anesthesia | | | | | | | Intra-op | | | | | | + +-------+ +---------+---+---+ +-------+ +-------+---+---+ | Given | 11/26/19 | 3 mLs | | | | | 18 7:19 | | | | | | AM PDT | | | | +-------+ +-------+---+---+ +---+---+ | | | +---+---+ + +-------+ + +---+---+ | oxytocin (PITOCIN) injection | Given | 11/27/19 | 20 Units | | | | Intravenous, PRN, Starting Wed | | 18 6:57 | | | | | 11/26/17 at 0657, Anesthesia | | AM PDT | | | | | Intra-op | | | | | | + +-------+ + +---+---+ +---+---+ | | | +---+---+ documented in this encounter
--- OUTSIDE RECORDS SUMMARY | ~2019-11-22 | XMS | Encounter Summary ---
Demographics + + + | Address | [address] | | | [place] [address] | + + + | Home Phone [...] + | Author | [facility] | | | and Arielana | + + + | Organization | [facility] | | | and [...] [place] | | | | | [address] | | + + + + + | Ritchie Ozuna | ECON | Unknown | | + + + + + Care Team Providers + +------+ + | Care Software Licensing Specialist Name | Role | Phone | + [...] Medication Question | | 2019 | | [facility] | SENIOR RISK MANAGER | | | | | [facility] [address] | | | | | | [address] [facility], | | | | | | [place] [address] | | | | | | [phone] | | | +--------+ + + + [...]
--- OUTSIDE RECORDS SUMMARY | ~2019-11-22 | XMS | Encounter Summary ---
Demographics + + + | Address | [address] | | | [place] [address] | + + + | Home Phone | | + + + | Preferred Language | Unknown | + + + | Marital Status | | + + + | Pentecostal Affiliation | Unknown | + + + | Race | Unknown | + + + | Ethnic Group | Unknown | + + + Author + + + | Author | [facility] | | | and Arielana | + + + | Organization | [facility] | [...] , [place] | | | | | [address] | | + + + + + | Ritchie Ozuna | ECON | Unknown | | + + + + + Care Team Providers + +------+ + | Care Corporate Scheduler Name | Role | Phone | + [...] disorder | | 2019 | Visit | [facility] | E, DO [address] | with mixed anxiety | | | | [facility] [address] | [place], [place] | and depressed mood | | | | [address] [place], | [address] | | | | | [place] [address] | [phone] | | | | | [phone] | | | +--------+---------+ + + + [...] 4:00 PM PSTImelda Rodrigues presents today with [facility] Complaint of: Follow up on [...] given to: DO. Kandi Marroquin CC CMA Beranrd Sanders DO - 07/17/2018 4:00 PM PST [...] Procedure: SECTION; Surgeon: Ayesha Cordova, DO; Location: [facility] MAIN OR TUBAL LIGATION 2012 WISDOM [...] accurately reflects the service I personally [facility] and the decisions made by me. Dr. Bernard David DO. 07/17/2018 15:07 documented in this encounter Plan of Treatment Not on filedocumented as of this encounter Visit Diagnoses + + | Diagnosis | + + | Adjustment disorder with mixed anxiety and depressed mood | + + documented in this encounter
--- OUTSIDE RECORDS SUMMARY | ~2019-11-22 | XMS | Encounter Summary ---
Demographics + + + | Address | [address] | | | [place] [address] | + + + | Home Phone [...] + + | Author | [facility] | | | and Arielana | + + + | Organization | [facility] | | [...] [address] | | | | | [place], [place] | | | | | [address] | | + + + + + | Ritchie Ozuna | ECON | Unknown | | + + + + + Care Team Providers + +------+ + | Care Lawn Sprinkler Servicer Name | Role | Phone | + [...] | | | | | depressed | [address] | [place], [place] | | | | | mood | Phone: | [phone] | | | | | | [phone] | Phone: | | | | | | Fax: | [phone] | | | | | | [phone] | Fax: | | | | | | | [phone] | +--------+ + + + + + [...] disorder | | 2018 | Visit | [facility] | E, DO [address] | with mixed anxiety | | | | MEDICAL [facility] [address] | [place] | and depressed mood | | | | [address] [place], | [address] | (Primary Dx) | | | | [place] [address] | [phone] | | | | | [phone] | | | +--------+---------+ + + + [...] the clinic today to re-establish care from [facility], and discuss anxiety and p ost depression. [...] 4:18 PM Jorge Alberto Kandi MG Calzada SUPERVISOR BURLING AND JOINING - 04/13/2018 3:00 PM Grover Betty soto [...]
--- OUTSIDE RECORDS SUMMARY | ~2019-11-22 | XMS | Encounter Summary ---
Demographics + + + | Address | [address] | | | [place] [address] | + + + | Home Phone | | + + + | Preferred Language | Unknown | + + + | Marital Status | | + + + | Anglican Affiliation | Unknown | + + + | Race | Unknown | + + + | Ethnic Group | Unknown | + + + Author + + + | Author | [facility] | | | and [place] | + + + | Organization | [facility] | | | and [place] [...] , [place] | | | | | [address] | | + + + + + | Ritchie Ozuna | ECON | Unknown | | + + + + + Care Team Providers + +------+ + | Care Field Recruiter Name | Role | Phone | + [...] | | | MEDICAL [facility] [address] | [place], [place] | | | | [address] [place], | [address] | | | | | [place] [address] | [phone] | | | | | [phone] | | | +--------+ + + + [...]
--- OUTSIDE RECORDS SUMMARY | ~2019-11-22 | XMS | Encounter Summary ---
Demographics + + + | Address | [address] | | | [place] [address] | + + + | Home Phone [...] + + | Author | [facility] | | | and [place] | + + + | Organization | [facility] | | | [...] [place], [place] | | | | | [address] | | + + + + + | Ritchie Ozuna | ECON | Unknown | | + + + + + Care Team Providers + +------+ + | Care Visitor Services Assistant Name | Role | Phone | + [...] | | | | | | [place] [address] | | | | | | | Phone: | | | | | | | [phone] | | | | | | | Fax: | | | | | | | [phone] | | +--------+ + + + + [...] + + + + | 11/25/ | [facility] | [facility] | Ayesha Cordova | Failure to progress | | 2018 - | Encounter | [facility] | Betzy, DO [address] | in labor (Primary | | | | [address] | [address] [place] | Dx) | | 11/29/ | | [address] [place], [place] | [place]VE, [place] [address] | | | 2018 | | [address] | [phone] | | | | | [phone] | | | +--------+ + + + [...] Physician Discharge Summary Patient ID: Imelda Rodrigues [id number] y.o. 1985 Admit date: 11/25/2017 Discharge [...] position. Remember, it can take as long [id number] for a incision to heal. Activity Here [...] anxiety, panic, and/or depression Date Last Reviewed: 01/29/201519997778-5336 The [employer]. [address] [place] [address]. All righ ts reserved. This information is [...] PM PDTPt seen and examined. Pain tolerable. JEWEL BEARING BROACHER DC'd this AM and has been converted [...] All questions answered. Consents signed. Anesthesia, nursing electrical plumbing supervisor, and peds notified. Cut time 0645 [...] placed Continue Pitocin per protocol to adequate [place] units BS 73 BPs 120s-130s/70s Evaluation at 1630 Remains comfortable with epidural. Denies pelvic pressure SVE 5/90/-2. Moderate caput FHTs reactive. Cat I tracing. 130s/mod variability/+accels Ctx q 1-2 min BS 94 BPx 120s-140s/70s Continue Pitocin per protocol. If BS drop below 70 will add D5LR Evaluation at 2135 SVE 5.5/95/-2. Moderate caput FHTs reactive. Cat I Ctx q 1-2 min. [place] units ranging from 150-175 Discussed continued management [...] + | [facility] | [address] | [place] | [phone] | | [facility] | | [address] | | | - LABORATORY | | [...] [address] | [place] | [phone] | | [facility] | | [address] | | | - LABORATORY | | [...] [address] | [place] | [phone] | | [facility] | | [address] | | | - LABORATORY | | [...] [address] | [place] | [phone] | | [facility] | | [address] | | | - LABORATORY | | [...] [address] | [place] | [phone] | | [facility] | | [address] | | | - LABORATORY | | [...] ST. | [address] | [place] | [phone] | | [facility] | | [address] | | | - LABORATORY | | [...] [address] | [place] | [phone] | | [facility] | | [address] | | | - LABORATORY | | [...] + | [facility] [facility] | [address] | [address] [place] | [phone] | | [facility] | | [address] | | | - LABORATORY | | [...] + | [facility] | [address] | [place], [place] | [phone] | | [facility] | | [address] | | | - LABORATORY | | [...] + | [facility] | [address] | [place] | [phone] | | [facility] | | [address] | | | - LABORATORY | | [...] [address] | [place] | [phone] | | [facility] | | [address] | | | - LABORATORY | | [...] [address] | [place] | [phone] | | [facility] | | [address] | | | - LABORATORY | | [...] [address] | [place] | [phone] | | [facility] | | [address] | | | - LABORATORY | | [...] [address] | [place] | [phone] | | [facility] | | [address] | | | - LABORATORY | | [...] [address] | [place] | [phone] | | [facility] | | [address] | | | - LABORATORY | | [...] + | [facility] | [address] | [place] | [phone] | | [facility] | | [address] | | | - LABORATORY | | [address] | [address] [place] | [phone] | | [facility] | | [address] | | | - LABORATORY | | [...] + | [facility] | [address] | [place] | [phone] | | [facility] | | [address] | | | - LABORATORY | | [...] [address] | [place] | [phone] | | [facility] | | [address] | | | - LABORATORY | | [...] + | [facility] | [address] | [place] | [phone] | | [facility] | | [address] | | | - LABORATORY | | [...] [address] | [place] | [phone] | | [facility] | | [address] | | | - LABORATORY | | [...] + + | Performing | Address | City/State[facility] | Phone Number | | Organization | | | | + + + + + | [facility] | [address] | [place] | [phone] | | [facility] | | [address] | | | - LABORATORY | | [...] + | [facility] | [address] | [place] | [phone] | | [facility] | | [address] | | | - LABORATORY | | [...] + | [facility] | [address] | [place] | [phone] | | [facility] | | [address] | | | - LABORATORY | | [...] [address] | [place] | [phone] | | [facility] | | [address] | | | - LABORATORY | | [...] + | [facility] | [address] | [place] | [phone] | | [facility] | | [address] | | | - LABORATORY | | [...] [address] | [place] | [phone] | | [facility] | | [address] | | | - LABORATORY | | [...] St | [place] | | | [facility] | | [address] | | | - BLOOD BANK | [...] [address] | [place] | [phone] | | [facility] | | [address] | | | - LABORATORY | | [...] + +---------+ +---+---+---+ | fentaNYL 50 mcg/mL JEWEL BEARING BROACHER | New Bag | 11/27/19 | | [...] | | | | | | | JEWEL BEARING BROACHER Dose(mcg): 10, Incremental | | | | | | | Increase JEWEL BEARING BROACHER Dose(mcg): 5, | | | | | | | Maximum JEWEL BEARING BROACHER Dose(mcg): 20, | | | | | [...]
--- OUTSIDE RECORDS SUMMARY | ~2019-11-22 | XMS | Clinical Summary ---
Demographics + + + | Address | [address] | | | [place] [address] | + + + | Home Phone | | + + + | Preferred Language | Unknown | + + + | Marital Status | | + + + | Jewish Affiliation | Unknown | + + + | Race | Unknown | + + + | Ethnic Group | Unknown | + + + Author + + + | Author | [facility] | | | and [place] | + + + | Organization | [facility] | | | and [...] [place], [place] | | | | | [address] | | + + + + + | Ritchie Ozuna | ECON | Unknown | | + + + + + Care Team Providers + +------+ + | Care Batch Trucker Name | Role | Phone | + [...] +---------+--------+ | [facility] | [facility] | [id number] | 06/16/19 | [phone] | | PPO | | ADMIN | BCBS | 8 | 16-Pre | 3 | | | | | PPO | | sent | | | | + +--------+ +--------+ +---------+--------+ | [facility] [employer] | [facility] | [id number] | 06/16/19 | [phone] | | Indemn [...] | Self | [birth year] | [address] | | | al/Fam | | 1986 | [phone] | [place] [address] | | | reynaldo | | | 8 (Home) | | + +--------+ +--------+ + + | Imelda Rodrigues | Person | Self | [birth year] | [address] | | | al/Fam | | 1986 | [phone] | [place] [address] | | | [place]yn[place]do | | | 8 (Home) | | | | | | | [phone] | | | | | | | 0 (Work) | | + +--------+ +--------+ + + Advance Directives + + + + + | Type | Date Recorded | Patient | Explanation | | | | Dispatcher Street Department | | + + + + + | Power of | | | | | Motorcycle Delivery Driver | | | | + + + [...]
--- OUTSIDE RECORDS SUMMARY | ~2019-11-22 | XMS | Encounter Summary ---
Demographics + + + | Address | [address] | | | [place] [address] | + + + | Home Phone [...] Author | [facility] | | | and [place]el[place] | + + + | Organization | [facility] | | | and [place] [...] , [place] | | | | | [address] | | + + + + + | Ritchie Ozuna | ECON | Unknown | | + + + + + Care Team Providers + +------+ + | Care Supervisor Special Effects Name | Role | Phone | + [...] | +--------+ + + + + | 06/04/ | Telephone | KMAILA DELANEY | [place] | Lab Order | | 2018 | | [facility] | | | | | | MEDICAL CLINIC [address] | | | | | | [address]TH [facility], | | | | | | [place] [address] | | | | | | [phone] | | | +--------+ + + + [...]
--- OUTSIDE RECORDS SUMMARY | ~2019-11-22 | XMS | Encounter Summary ---
Demographics + + + | Address | [address] | | | [place] [address] | + + + | Home Phone | | + + + | Preferred Language | Unknown | + + + | Marital Status | | + + + | Oriental Orthodox Affiliation | Unknown | + + + | Race | Unknown | + + + | Ethnic Group | Unknown | + + + Author + + + | Author | [facility] | | | and [place] | + + + | Organization | [facility] | | | and [place] [...] , [place] | | | | | [address] | | + + + + + | Ritchie Ozuna | ECON | Unknown | | + + + + + Care Team Providers + +------+ + | Care Whistle Punk Name | Role | Phone | + +------+ + | Bernard David DO | PCP | | + +------+ + Encounter Details +--------+ + + + + | Date | Type | Department | Care Team | Description | +--------+ + + + + | 10/01/ | Orders Only | [facility] | Bryant Cade | | | 2017 | | CLINIC ULTRASOUND | MD Emery [address] | | | | | [address] | [address] | | | | | [address] [place], [place] | [place] [address] | | | | | [address] | [phone] | | | | | [phone] | | | +--------+ + + + [...] + | For All Ultrasounds performed at [facility] : | | | The interpretation [...] tab, please | | | contact the Sterilization Tech at [phone] zsg [phone]. | | + + + + + | Procedure Note | + + | Skyler, Rad Conversion - 02/04/2019 5:18 PM PDT For All Ultrasounds performed | | at [facility] : The interpretation may be found under the Media tab within | | Chart review ofa patient's chart approximately 3 days after the exam date. The | | reportwill be under the heading of M Ultrasound If you are not able to find the | | dictation under the media tab, pleasecontact the Sterilization Tech at [phone] | | [phone]. | |If you are not able to find the dictation under the media tab, please | |contact the Sterilization Tech at [phone] rdi [phone]. | | | + + documented in this encounter Visit Diagnoses Not on filedocumented in this encounter"
--- OUTSIDE RECORDS SUMMARY | ~2019-11-22 | XMS | Encounter Summary ---
Demographics + + + | Address | [address] | | | [place] [address] | + + + | Home Phone [...] | [facility] | | | and Arielana | + + + | Organization | [facility] | | | and [...] [place] | | | | | [address] | | + + + + + | Ritchie Ozuna | ECON | Unknown | | + + + + + Care Team Providers + +------+ + | Care Clinical Data Analyst Name | Role | Phone | + +------+ + | Bernard David DO | PCP | | + +------+ + Encounter Details +--------+ + + + + | Date | Type | Department | Care Team | Description | +--------+ + + + + | 11/21/ | Hospital | [facility] | Ayesha Cordova | Essential | | 2018 | Encounter | MED CTR ULTRASOUND | DO Betzy [address] | hypertension; Type 2 | | | | [address] [place] | [address] [place] | diabetes mellitus | | | | [place], [place] | [place] [address] | with hyperosmolarity | | | | [address] | [phone] | without coma, | | | | [phone] | | without long-term | | | [...]
--- OUTSIDE RECORDS SUMMARY | ~2019-11-22 | XMS | Encounter Summary ---
Demographics + + + | Address | [address] | | | [place] [address] | + + + | Home Phone | | + + + | Preferred Language | Unknown | + + + | Marital Status | | + + + | Rastafarian Affiliation | Unknown | + + + | Race | Unknown | + + + | Ethnic Group | Unknown | + + + Author + + + | Author | [facility] | | | and [place] | + + + | Organization | [facility] | | | and [place] [...] , [place] | | | | | [address] | | + + + + + | Ritchie Ozuna | ECON | Unknown | | + + + + + Care Team Providers + +------+ + | Care Dedicated Owner Operator Name | Role | Phone | [...] Description | +--------+--------+ + + + | 07/08/ | Refill | [facility] DELANEY | Roseann Arriaga, | Medication Refill | | 2019 | | [facility] | [facility] [address] | | | | | MEDICAL CLINIC [address] | [place] [address] | | | | | 4TH [facility], | [phone] | | | | | [place] [address] | | | | | | [phone] | | | +--------+--------+ + + + [...]
--- OUTSIDE RECORDS SUMMARY | ~2019-11-22 | XMS | Encounter Summary ---
Demographics + + + | Address | [address] | | | [place] [address] | + + + | Home Phone | | + + + | Preferred Language | Unknown | + + + | Marital Status | | + + + | Taoism Affiliation | Unknown | + + + | Race | Unknown | + + + | Ethnic Group | Unknown | + + + Author + + + | Author | [facility] | | | and [place] | + + + | Organization | [facility] | | | and Ariel[place] [...] [place] | | | | | [address] | | + + + + + | Ritchie Ozuna | ECON | Unknown | | + + + + + Care Team Providers + +------+ + | Care Repair Electric Motor Assembler Name | Role | Phone | + [...] | | [address] [place], | [address] | complication, | | | | [place] [address] | [phone] | without long-term | | | | [phone] | | current use of | | [...] | | | | | | insulin ([facility]) | | + +------+--------+ + + documented as of this encounter Visit Diagnoses + + | Diagnosis | + + | Controlled type 2 diabetes mellitus without complication, without long-term current | | use of insulin ([facility]) - Primary | + + documented in this encounter"
--- OUTSIDE RECORDS SUMMARY | ~2019-11-22 | XMS | Encounter Summary ---
Demographics + + + | Address | [address] | | | [place] [address] | + + + | Home Phone | | + + + | Preferred Language | Unknown | + + + | Marital Status | | + + + | Zoroastrian Affiliation | Unknown | + + + | Race | Unknown | + + + | Ethnic Group | Unknown | + + + Author + + + | Author | [facility] | | | and [place] | + + + | Organization | [facility] | | | [...] , [place] | | | | | [address] | | + + + + + | Ritchie Ozuna | ECON | Unknown | | + + + + + Care Team Providers + +------+ + | Care Director Of Cloud Services Name | Role | Phone | + [...] Medication Refill | | 2019 | | [facility] | CC SUPERVISOR DRAWING | | | | | MEDICAL CLINIC [address] | | | | | | [address]TH [facility] [place], | | | | | | [place] [address] | | | | | | [phone] | | | +--------+--------+ + + + [...]
--- OUTSIDE RECORDS SUMMARY | ~2019-11-22 | XMS | Encounter Summary ---
Demographics + + + | Address | [address] | | | [place] [address] | + + + | Home Phone [...] Author | [facility] | | | and [place] | + + + | Organization | [facility] | | | and [...] , [place] | | | | | [address] | | + + + + + | Ritchie Ozuna | ECON | Unknown | | + + + + + Care Team Providers + +------+ + | Care Landscape Artist Name | Role | Phone | + [...] Medication Refill | | 2019 | | [facility] | [facility] [address] [facility] | | | | | MEDICAL CLINIC [address] | [place] [address] | | | | | 4TH [facility], | [phone] | | | | | [place] [address] | | | | | | [phone] | | | +--------+--------+ + + + [...]
--- OUTSIDE RECORDS SUMMARY | ~2019-11-22 | XMS | Encounter Summary ---
Demographics + + + | Address | [address] | | | [place] [address] | + + + | Home Phone | | + + + | Preferred Language | Unknown | + + + | Marital Status | | + + + | Mandaeism Affiliation | Unknown | + + + | Race | Unknown | + + + | Ethnic Group | Unknown | + + + Author + + + | Author | [facility] | | | and [place] | + + + | Organization | [facility] | | | [...] , [place] | | | | | [address] | | + + + + + | Ritchie Ozuna | ECON | Unknown | | + + + + + Care Team Providers + +------+ + | Care Yeast Fermentation Attendant Name | Role | Phone | + +------+ + | Bernard David DO | PCP | | + +------+ + Encounter Details +--------+ + + + + | Date | Type | Department | Care Team | Description | +--------+ + + + + | 05/28/ | Abstract | [facility] DELANEY | Mega Germain | | | 2017 | | [facility] | | | | | | MEDICAL CLINIC [address] | | | | | | [address] [place], | | | | | | [place] [address] | | | | | | [phone] | | | +--------+ + + + [...]
--- OUTSIDE RECORDS SUMMARY | ~2019-11-22 | XMS | Encounter Summary ---
Demographics + + + | Address | [address] | | | [place] [address] | + + + | Home Phone | | + + + | Preferred Language | Unknown | + + + | Marital Status | | + + + | Buddhism Affiliation | Unknown | + + + | Race | Unknown | + + + | Ethnic Group | Unknown | + + + Author + + + | Author | [facility] | | | and [place] | + + + | Organization | [facility] | | | and [place] [...] , [place] | | | | | [address] | | + + + + + | Ritchie Ozuna | ECON | Unknown | | + + + + + Care Team Providers + +------+ + | Care Flat Ironer Name | Role | Phone | + [...] [address] | | | | | [address] [place], [place] | [place] [address] | | | | | [address] | [phone] | | | | | [phone] | | | +--------+ + + + [...] + | For All Ultrasounds performed at [facility] : | | | The interpretation may be found under the Media tab within Chart | | | review of a patient's chart approximately 3 days after the exam date. | | | The report will be under the heading of [facility] Ultrasound If you | | | are not able to find the dictation under the media tab, please | | | contact the Cable Armorer Operator at [phone] emn [phone]. | | + + + + + | Procedure Note | + + | Rebel Holland Conversion - 02/04/2019 5:18 PM PDT For All Ultrasounds performed | | at [facility] : The interpretation may be found under the Media tab within | | Chart review ofa patient's chart approximately 3 days after the exam date. The | | reportwill be under the heading of MFM Ultrasound If you are not able to find the | | dictation under the media tab, pleasecontact the Cable Armorer Operator at [phone] | | [phone]. | |If you are not able to find the dictation under the media tab, please | |contact the Cable Armorer Operator at [phone] xrk [phone]. | | | + + documented in this encounter Visit Diagnoses Not on filedocumented in this encounter"
--- OUTSIDE RECORDS SUMMARY | ~2019-11-22 | XMS | Encounter Summary ---
Demographics + + + | Address | [address] | | | [place] [address] | + + + | Home Phone | | + + + | Preferred Language | Unknown | + + + | Marital Status | | + + + | Rastafari Affiliation | Unknown | + + + | Race | Unknown | + + + | Ethnic Group | Unknown | + + + Author + + + | Author | [facility] | | | and [place] | + + + | Organization | [facility] | | [...] , [place] | | | | | [address] | | + + + + + | Ritchie Ozuna | ECON | Unknown | | + + + + + Care Team Providers + +------+ + | Care Kiln Puller Name | Role | Phone | + +------+ + | Bernard David DO | PCP | | + +------+ + Encounter Details +--------+ + + + + | Date | Type | Department | Care Team | Description | +--------+ + + + + | 03/04/ | Abstract | K[facility]IL[facility] DELANEY | Joann Bernard | | | 2018 | | [facility] | E, DO [address] | | | | | MEDICAL CLINIC [address] | [place], [place] | | | | | [address] [place], | [address] | | | | | [place] [address] | [phone] | | | | | [phone] | | | +--------+ + + + [...]
--- OUTSIDE RECORDS SUMMARY | ~2019-11-22 | XMS | Encounter Summary ---
Demographics + + + | Address | [address] | | | [place] [address] | + + + | Home Phone | | + + + | Preferred Language | Unknown | + + + | Marital Status | | + + + | Christianity Affiliation | Unknown | + + + | Race | Unknown | + + + | Ethnic Group | Unknown | + + + Author + + + | Author | [facility] | | | and [place] | + + + | Organization | [facility] | | | [...] [place], [place] | | | | | [address] | | + + + + + | Ritchie Ozuna | ECON | Unknown | | + + + + + Care Team Providers + +------+ + | Care Imaging Manager Name | Role | Phone | + +------+ + PCP | Unavailable | + +------+ + Encounter Details +--------+ + + + + | Date | Type | Department | Care Team | Description | +--------+ + + + + | 06/07/ | Hospital [facility] | En[facility] | [facility] | | | | | | CENTER [address] | | | | | | [place], [place] | | | | | | [address] | | | | | | [phone] | | | +--------+ + + + [...]
--- OUTSIDE RECORDS SUMMARY | ~2019-11-22 | XMS | Encounter Summary ---
Demographics + + + | Address | [address] | | | [place] [address] | + + + | Home Phone | | + + + | Preferred Language | Unknown | + + + | Marital Status | | + + + | Congregation Affiliation | Unknown | + + + | Race | Unknown | + + + | Ethnic Group | Unknown | + + + Author + + + | Author | [facility] | | | and [place] | + + + | Organization | [facility] | [...] , [place] | | | | | [address] | | + + + + + | Ritchie Ozuna | ECON | Unknown | | + + + + + Care Team Providers + +------+ + | Care Hotel Yardperson Name | Role | Phone | + +------+ + | Bernard David DO | PCP | | + +------+ + Encounter Details +--------+ + + + + | Date | Type | Department | Care Team | Description | +--------+ + + + + | 01/18/ | Orders Only | [facility] | Provider, | | | 2019 | | SYSTEM GENERIC OP | [address] | | | | | CONVERSION [address] | [place] | | | | | [address] [place], [place] | [place] [address] | | | | | [address] | | | | | | [phone] | | | +--------+ + + + [...]
--- OUTSIDE RECORDS SUMMARY | ~2019-11-22 | XMS | Encounter Summary ---
Demographics + + + | Address | [address] | | | [place] [address] | + + + | Home Phone | | + + + | Preferred Language | Unknown | + + + | Marital Status | | + + + | Hoahaoism Affiliation | Unknown | + + + | Race | Unknown | + + + | Ethnic Group | Unknown | + + + Author + + + | Author | [facility] | | | and [place] | + + + | Organization | [facility] | | [...] , [place] | | | | | [address] | | + + + + + | Ritchie Ozuna | ECON | Unknown | | + + + + + Care Team Providers + +------+ + | Care Shotgun Shell Loading Machine Operator Name | Role | Phone | + +------+ + | Bernard David DO | PCP | | + +------+ + Reason for Visit + + + | Reason | Comments | + + + | Cold Symptoms | | + + + Encounter Details +--------+ + + + + | Date | Type | Department | Care Team | Description | +--------+ + + + + | 04/23/ | Telephone | [facility] | Bernard David | Cold Symptoms | | 2017 | | [facility] | E, DO [address] | | | | | MEDICAL CLIN[address] | [place], [place] | | | | | [address] [place], | [address] | | | | | [place] [address] | [phone] | | | | | [phone] | | | +--------+ + + + [...]
--- OUTSIDE RECORDS SUMMARY | ~2019-11-22 | XMS | Clinical Summary ---
Demographics + + + | Address | [address] | | | [place] [address] | + + + | Home Phone [...] | Author | [facility] | | | and Arielana | + + + | Organization | [facility] | | | and [...] [place], [place] | | | | | [address] | | + + + + + | Ritchie Ozuna | ECON | Unknown | | + + + + + Care Team Providers + +------+ + | Care Neck Pinner Name | Role | Phone | + [...] +---------+--------+ | [facility] | [facility] | [id number] | 06/16/19 | [phone] | | PPO | | ADMIN | BCBS | 8 | 16-Pre | 3 | | | | | PPO | | sent | | | | + +--------+ +--------+ +---------+--------+ | [facility] [employer] | HMA | [id number] | 06/16/19 | [phone] | | Indemn [...] | Self | [birth year] | [address] | | | al/Fam | | 1986 | [phone] | [place] [address] | | | reynaldo | | | 8 (Home) | | + +--------+ +--------+ + + | Imelda Rodrigues | Person | Self | [birth year] | [address] | | | al/Fam | | 1986 | [phone] | [place] [address] | | | reynaldo | | | 8 (Home) | | | | | | | [phone] | | | | | | | 0 (Work) | | + +--------+ +--------+ + + Advance Directives + + + + + | Type | Date Recorded | Patient | Explanation | | | | Environmental Services Technician | | + + + + + | Power of | | | | | Marketing Database Analyst | | | | + + + [...]
--- OUTSIDE RECORDS SUMMARY | ~2019-11-22 | XMS | Encounter Summary ---
Demographics + + + | Address | [address] | | | [place] [address] | + + + | Home Phone | | + + + | Preferred Language | Unknown | + + + | Marital Status | | + + + | Orthodox Affiliation | Unknown | + + + | Race | Unknown | + + + | Ethnic Group | Unknown | + + + Author + + + | Author | [facility] | | | and [place]elana | + + + | Organization | [facility] | | | and [place]elana [...] , [place] | | | | | [address] | | + + + + + | Ritchie Ozuna | ECON | Unknown | | + + + + + Care Team Providers + +------+ + | Care Tint Layer Name | Role | Phone | + [...] [address] | | | | | [address] [place], [place] | [place] [address] | | | | | [address] | [phone] | | | | | [phone] | | | +--------+ + + + [...] + | For All Ultrasounds performed at [facility] : | | | The interpretation may be found under the Media tab within Chart | | | review of a patient's chart approximately 3 days after the exam date. | | | The report will be under the heading of [facility] Ultrasound If you | | | are not able to find the dictation under the media tab, please | | | contact the Pace Analyst at [phone] mli [phone]. | | + + + + + | Procedure Note | + + | Rebel Holland Conversion - 02/04/2019 5:18 PM PDT For All Ultrasounds performed | | at [facility] : The interpretation may be found under the Media tab within | | Chart review ofa patient's chart approximately 3 days after the exam date. The | | reportwill be under the heading of [facility] Ultrasound If you are not able to find the | | dictation under the media tab, pleasecontact the Pace Analyst at [phone] ext | | [phone]. | |If you are not able to find the dictation under the media tab, please | |contact the Pace Analyst at [phone] ttk [phone]. | | | + + documented in this encounter Visit Diagnoses Not on filedocumented in this encounter"
--- OUTSIDE RECORDS SUMMARY | ~2019-11-22 | XMS | Encounter Summary ---
Demographics + + + | Address | [address] | | | [place] [address] | + + + | Home Phone | | + + + | Preferred Language | Unknown | + + + | Marital Status | | + + + | Catholic Affiliation | Unknown | + + + | Race | Unknown | + + + | Ethnic Group | Unknown | + + + Author + + + | Author | [facility] | | | and Arielana | + + + | Organization | [facility] | | | and Ariel[place] [...] [place] | | | | | [address] | | + + + + + | Ritchie Ozuna | ECON | Unknown | | + + + + + Care Team Providers + +------+ + | Care Commercial Solar Sales Consultant Name | Role | Phone | + +------+ + | Bernard David DO | PCP | | + +------+ + Encounter Details +--------+ + + + + | Date | Type | Department | Care Team | Description | +--------+ + + + + | 07/18/ | Hospital | [facility] | Ayesha Cordova | Encounter for | | 2017 | Encounter | [address] | DO [address] | supervision of | | | | [place], [place] | [facility] | normal , | | | | [address] | [place] [address] | antepartum, | | | | [phone] | [phone] | unspecified | | | | | | | [...] OB 14 + WEEKS | Routin | 07/18/2017 | Encounter for | Results for this | | SINGLE OR FIRST | e | 1:05 PM | supervision of | procedure are in the | | GESTATION | | PST | normal , | results section. | | | | | antepartum, | | | | | | unspecified | | | | | | | | + +--------+ + + + documented in this encounter Results US OB 14 + Week Singl or First Gestation (07/18/2017 1:05 PM PST) + + | Specimen | + + | | + + + +-------- -------+ | Narrative | Perform ed At | + +-------- -------+ | COMPLETE | [facility] | | OBSTETRIC ULTRASOUND 07/18/2017 1:05 PM (PERFORMED AT [facility] | | | [facility]) CLINICAL HISTORY: US OB 14 + Week Singl or First | | | Gestation, approximately 19weeks 3 days based on LMP | | | COMPARISON: None available FINDINGS: A single intrauterine fetus is | | | present, and is in variable lie. Thematernal cervix is closed and | | | measures 3.2 cm. The placenta is posterior,without evidence of | | | placenta previa or subchorionic hemorrhage. Amniotic fluidvolume is | | | subjectively within normal limits. biometric data:BPD of 4.4 | | | cm equals 19 weeks 2 days.Head circumference of 16.5 cm equals 19 | | | weeks 2 days.Abdominal circumference of 13.7 cm equals 19 weeks 1 | | | day.Femur length of 2.8 cm equals 18 weeks 4 days. Average sonographic | | | age is 19 weeks 1 day, which is 2 days less than thecalculated | | | gestational age based on LMP. anatomic survey: Contents of the | | | posterior fossa and the lateralventricles are unremarkable. A | | | four-chamber heart is present, with a regularrate of 152 BPM. | | | Cardiac ventricular outflow tracts are normal in orientation. A | | | fluid filled stomach and bladder are present. The spine, | | | renalregion and three-vessel umbilical cord and its insertion are | | | unremarkable. Two upper and lower extremities are visualized. | | | IMPRESSION -1. SINGLE, LIVING INTRAUTERINE FETUS IN VARIABLE LIE, | | | WITH AVERAGE SONOGRAPHICAGE 19 WEEKS 1 DAY, WHICH IS 2 DAYS LESS THAN | | | THE CALCULATED GESTATIONAL AGEBASED ON LMP. 2. NORMAL | | | ANATOMIC SURVEY. Dictated and Signed by: Yovani Jeong MD | | | Electronically signed: 07/18/2017 9:38 PM | | | A fluid filled stomach and bladder are present. The spine, renal | | |region and three-vessel umbilical cord and its insertion are unremarkable. | | |Two upper and lower extremities are visualized. | | | | | |IMPRESSION - | | |1. SINGLE, LIVING INTRAUTERINE FETUS IN VARIABLE LIE, WITH AVERAGE SONOGRAPHIC | | |AGE 19 WEEKS 1 DAY, WHICH IS 2 DAYS LESS THAN THE CALCULATED GESTATIONAL AGE | | |BASED ON LMP. | | | | | |2. NORMAL ANATOMIC SURVEY. | | | | | |Dictated and Signed by: Yovani Jeong MD | | | Electronically signed: 07/18/2017 9:38 PM | | | | | + +-------- -------+ + + | Procedure Note | + + | Skyler, Rad Results In - 07/18/2017 9:41 PM PST COMPLETE OBSTETRIC ULTRASOUND 07/18/2017 | | 1:05 PM (PERFORMED AT [facility])CLINICAL HISTORY: US OB 14 + Week Singl or | | First Gestation, approximately 19weeks 3 days based on LMPCOMPARISON: None | | availableFINDINGS: A single intrauterine fetus is present, and is in variable lie. | | Thematernal cervix is closed and measures 3.2 cm. The placenta is posterior,without | | evidence of placenta previa or subchorionic hemorrhage. Amniotic fluidvolume is | | subjectively within normal limits. biometric data:BPD of 4.4 cm equals 19 weeks 2 | | days.Head circumference of 16.5 cm equals 19 weeks 2 days.Abdominal circumference of | | 13.7 cm equals 19 weeks 1 day.Femur length of 2.8 cm equals 18 weeks 4 days.Average | | sonographic age is 19 weeks 1 day, which is 2 days less than thecalculated gestational | | age based on LMP. anatomic survey: Contents of the posterior fossa and the | | lateralventricles are unremarkable. A four-chamber heart is present, with a | | regularrate of 152 BPM. Cardiac ventricular outflow tracts are normal in orientation. | | A fluid filled stomach and bladder are present. The spine, renalregion and | | three-vessel umbilical cord and its insertion are unremarkable. Two upper and lower | | extremities are visualized. IMPRESSION -1. SINGLE, LIVING INTRAUTERINE FETUS IN | | VARIABLE LIE, WITH AVERAGE SONOGRAPHICAGE 19 WEEKS 1 DAY, WHICH IS 2 DAYS LESS THAN THE | | CALCULATED GESTATIONAL AGEBASED ON LMP. 2. NORMAL ANATOMIC SURVEY.Dictated and | | Signed by: Yovani Jeong MD Electronically signed: 07/18/2017 9:38 PM | |Average sonographic age is 19 weeks 1 day, which is 2 days less than the | |calculated gestational age based on LMP. | | | | anatomic survey: Contents of the posterior fossa and the lateral | |ventricles are unremarkable. A four-chamber heart is present, with a regular | |rate of 152 BPM. Cardiac ventricular outflow tracts are normal in orientation. | | A fluid filled stomach and bladder are present. The spine, renal | |region and three-vessel umbilical cord and its insertion are unremarkable. | |Two upper and lower extremities are visualized. | | | |IMPRESSION - | |1. SINGLE, LIVING INTRAUTERINE FETUS IN VARIABLE LIE, WITH AVERAGE SONOGRAPHIC | |AGE 19 WEEKS 1 DAY, WHICH IS 2 DAYS LESS THAN THE CALCULATED GESTATIONAL AGE | |BASED ON LMP. | | | |2. NORMAL ANATOMIC SURVEY. | | | |Dictated and Signed by: Yovani Jeong MD | | Electronically signed: 07/18/2017 9:38 PM | + + + +---------+ + + | Performing | Address | City/State/Zipcode | Phone Number | | Organization | | | | + +---------+ + + | [facility] | | | | + +---------+ + + documented in this encounter Visit Diagnoses + + | Diagnosis | + + | Encounter for supervision of normal , antepartum, unspecified | + + documented in this encounter"
--- OUTSIDE RECORDS SUMMARY | ~2019-11-22 | XMS | Encounter Summary ---
Demographics + + + | Address | [address] | | | [place] [address] | + + + | Home Phone | | + + + | Preferred Language | Unknown | + + + | Marital Status | | + + + | Yazdanism Affiliation | Unknown | + + + | Race | Unknown | + + + | Ethnic Group | Unknown | + + + Author + + + | Author | [facility] | | | and Arielana | + + + | Organization | [facility] | | | and [...] [place], [place] | | | | | [address] | | + + + + + | Ritchie Ozuna | ECON | Unknown | | + + + + + Care Team Providers + +------+ + | Care Cnc Maintenance Technician Name | Role | Phone | + [...] | | | | | [address] [place] | | | | | [place] | [address] | | | | | [address] | [phone] | | | | | [phone] | | | | | | | Jean-Paul Magallanes MD | | | | | | [address] | | | | | | [place], [place] | | | | | | [address] | | | | | | | [...] | al | | Shannon Delgadillo, | Dena Coy RN | | Cathet | | RN | | | er | | | | +--------+ + + + | Periph | 11/25/17; 629; Right; Proximal; | 11/25/17629 by Choudhury | 11/28/17451 by | | eral | Hand; [id number] catheter | Reena Jones RN | Saran [...] for all medication documentation. Electronically Signed by: Jea-nPaul Gonzalez | | MD Qing Magallanes date/time: [...]
--- OUTSIDE RECORDS SUMMARY | ~2019-11-22 | XMS | Encounter Summary ---
Demographics + + + | Address | [address] | | | [place] [address] | + + + | Home Phone | | + + + | Preferred Language | Unknown | + + + | Marital Status | | + + + | Gnosticism Affiliation | Unknown | + + + | Race | Unknown | + + + | Ethnic Group | Unknown | + + + Author + + + | Author | [facility] | | | and Arielana | + + + | Organization | [facility] | | | and [...] , [place] | | | | | [address] | | + + + + + | Ritchie Ozuna | ECON | Unknown | | + + + + + Care Team Providers + +------+ + | Care Registered Nurse Renal Name | Role | Phone | + [...] Cold Symptoms | | 2017 | | [facility] | E, DO [address] | | | | | MEDICAL CLIN[address] | [place], [place] | | | | | [address] [place], | [address] | | | | | [place] [address] | [phone] | | | | | [phone] | | | +--------+ + + + [...]
--- OUTSIDE RECORDS SUMMARY | ~2019-11-22 | XMS | Encounter Summary ---
Demographics + + + | Address | [address] | | | [place] [address] | + + + | Home Phone | | + + + | Preferred Language | Unknown | + + + | Marital Status | | + + + | Restorationism Affiliation | Unknown | + + + [...] , [place] | | | | | [address] | | + + + + + | Ritchie Ozuna | ECON | Unknown | | + + + + + Care Team Providers + +------+ + | Care Latcher Name | Role | Phone | + [...] Medication Refill | | 2019 | | [facility] | [facility] | | | | | MEDICAL CLIN[address] | | | | | | [address] [facility] [place], | | | | | | [place] [address] | | | | | | [phone] | | | +--------+--------+ + + + [...]
--- OUTSIDE RECORDS SUMMARY | ~2019-11-22 | XMS | Encounter Summary ---
Demographics + + + | Address | [address] | | | [place] [address] | + + + | Home Phone [...] Author | [facility] | | | and Arielana | + + + | Organization | [facility] | | [...] , [place] | | | | | [address] | | + + + + + | Ritchie Ozuna | ECON | Unknown | | + + + + + Care Team Providers + +------+ + | Care Oil And Gas Superintendent Name | Role | Phone | + [...] Diabetes Mellitus | | 2019 | | [facility] | | Management | | | | MEDICAL CLINIC [address] | | | | | | 4TH [facility], | | | | | | [place] [address] | | | | | | [phone] | | | +--------+ + + + [...]
--- OUTSIDE RECORDS SUMMARY | ~2019-11-22 | XMS | Encounter Summary ---
Demographics + + + | Address | [address] | | | [place] [address] | + + + | Home Phone | | + + + | Preferred Language | Unknown | + + + | Marital Status | | + + + | Druze Affiliation | Unknown | + + + | Race | Unknown | + + + | Ethnic Group | Unknown | + + + Author + + + | Author | [facility] | | | and [place]ana | + + + | Organization | [facility] | | | and [...] , [place] | | | | | [address] | | + + + + + | Ritchie Ozuna | ECON | Unknown | | + + + + + Care Team Providers + +------+ + | Care Inspector Air Carrier Name | Role | Phone | + [...] Medication Refill | | 2019 | | [facility] | [facility] [address] [facility] | | | | | MEDICAL CLINIC [address] | [place] [address] | | | | | [address]TH [facility], | [phone] | | | | | [place] [address] | | | | | | [phone] | | | +--------+--------+ + + + [...]
--- OUTSIDE RECORDS SUMMARY | ~2019-11-22 | XMS | Encounter Summary ---
Demographics + + + | Address | [address] | | | [place] [address] | + + + | Home Phone | | + + + | Preferred Language | Unknown | + + + | Marital Status | | + + + | Taoism Affiliation | Unknown | + + + | Race | Unknown | + + + | Ethnic Group | Unknown | + + + Author + + + | Author | [facility] | | | and [place]elana | + + + | Organization | [facility] | | | and [...] , [place] | | | | | [address] | | + + + + + | Ritchie Ozuna | ECON | Unknown | | + + + + + Care Team Providers + +------+ + | Care Horse Show Manager Name | Role | Phone | [...] + + | 06/04/ | Telephone | [facility] | [facility] | Lab Order | | 2018 | | [facility] | | | | | | MEDICAL CLIN[address] | | | | | | 4TH [facility], | | | | | | [place] [address] | | | | | | [phone] | | | +--------+ + + + [...]
--- OUTSIDE RECORDS SUMMARY | ~2019-11-22 | XMS | Encounter Summary ---
Demographics + + + | Address | [address] | | | [place] [address] | + + + | Home Phone [...] + | Author | [facility] | | | and [place]elana | + + + | Organization | [facility] | | | and [...] , [place] | | | | | [address] | | + + + + + | Rtichie Ozuna | ECON | Unknown | | + + + + + Care Team Providers + +------+ + | Care Miller Helper Distillery Name | Role | Phone | + [...] Lab Order | | 2018 | | [facility] | | | | | | MEDICAL CLINIC [address] | | | | | | 4TH [facility], | | | | | | [place] [address] | | | | | | [phone] | | | +--------+ + + + [...]
--- OUTSIDE RECORDS SUMMARY | ~2019-11-22 | XMS | Encounter Summary ---
Demographics + + + | Address | [address] | | | [place] [address] | + + + | Home Phone | | + + + | Preferred Language | Unknown | + + + | Marital Status | | + + + | Yarsani Affiliation | Unknown | + + + | Race | Unknown | + + + | Ethnic Group | Unknown | + + + Author + + + | Author | [facility] | | | and [place] | + + + | Organization | [facility] | | | and [...] [place] | | | | | [address] | | + + + + + | Ritchie Ozuna | ECON | Unknown | | + + + + + Care Team Providers + +------+ + | Care Recycling Operations Manager Name | Role | Phone | + +------+ + | Bernard David DO | PCP | | + +------+ + Encounter Details +--------+ + + + + | Date | Type | Department | Care Team | Description | +--------+ + + + + | 07/18/ | Hospital | [facility] | Ayseha Cordova | Encounter for | | 2017 | Encounter | [address] | DO [address] | supervision of | | | | [place], [place] | ANNI [facility] | normal , | | | | [address] | [place] [address] | antepartum, | | | | [phone] | [phone] | unspecified | | | | | [...] OBSTETRIC ULTRASOUND 07/18/2017 1:05 PM (PERFORMED AT [facility] | | | [facility]) CLINICAL HISTORY: US OB 14 + Week [...] 07/18/2017 | | 1:05 PM (PERFORMED AT [facility])CLINICAL HISTORY: US OB 14 + Week [...]
--- OUTSIDE RECORDS SUMMARY | ~2019-11-22 | XMS | Encounter Summary ---
Demographics + + + | Address | [address] | | | [place] [address] | + + + | Home Phone | | + + + | Preferred Language | Unknown | + + + | Marital Status | | + + + | Orthodoxy Affiliation | Unknown | + + + | Race | Unknown | + + + | Ethnic Group | Unknown | + + + Author + + + | Author | [facility] | | | and Arielana | + + + | Organization | [facility] | | | and [place] [...] [place] | | | | | [address] | | + + + + + | Ritchie Ozuna | ECON | Unknown | | + + + + + Care Team Providers + +------+ + | Care Lime Supervisor Name | Role | Phone | + +------+ + | Bernard David DO | PCP | | + +------+ + Encounter Details +--------+ + + + + | Date | Type | Department | Care Team | Description | +--------+ + + + + | 07/18/ | Hospital | [facility] | Ayesha Cordova | Encounter for | | 2017 | Encounter | [address] | DO [address] | supervision of | | | | [place], [place] | ANNI [facility] | normal , | | | | [address] | [place] [address] | antepartum, | | | | [phone] | [phone] | unspecified | | | | | [...] OBSTETRIC ULTRASOUND 07/18/2017 1:05 PM (PERFORMED AT [facility] | | | [facility]) CLINICAL HISTORY: US OB 14 + Week [...] 07/18/2017 | | 1:05 PM (PERFORMED AT [facility])CLINICAL HISTORY: US OB 14 + Week Singl [...]
--- OUTSIDE RECORDS SUMMARY | ~2019-11-22 | XMS | Encounter Summary ---
Demographics + + + | Address | [address] | | | [place] [address] | + + + | Home Phone [...] | Author | [facility] | | | and Arielana | + + + | Organization | [facility] | | | and [place] [...] , [place] | | | | | [address] | | + + + + + | Ritchie Ozuna | ECON | Unknown | | + + + + + Care Team Providers + +------+ + | Care Blueprint Clerk Name | Role | Phone | + [...] | | | MEDICAL CLINIC [address] | [place], [place] | | | | | [address] [place], | [address] | | | | | [place] [address] | [phone] | | | | | [phone] | | | +--------+ + + + [...]
--- OUTSIDE RECORDS SUMMARY | ~2019-11-22 | XMS | Encounter Summary ---
Demographics + + + | Address | [address] | | | [place] [address] | + + + | Home Phone | | + + + | Preferred Language | Unknown | + + + | Marital Status | | + + + | Mandaen Affiliation | Unknown | + + + | Race | Unknown | + + + | Ethnic Group | Unknown | + + + Author + + + | Author | [facility] | | | and [place] | + + + | Organization | [facility] | | | and [place] | [...] , [place] | | | | | [address] | | + + + + + | Ritchie Ozuna | ECON | Unknown | | + + + + + Care Team Providers + +------+ + | Care Auto Body Technician Name | Role | Phone | [...] Diabetes Mellitus | | 2019 | | [facility] | E, DO [address] | Management (Diabetes | | | | MEDICAL CLINIC [address] | [place] | labs reminder) | | | | [facility], | [address] | | | | | [place] [address] | [phone] | | | | | [phone] | | | +--------+ + + + [...]
--- OUTSIDE RECORDS SUMMARY | ~2019-11-22 | XMS | Encounter Summary ---
Demographics + + + | Address | [address] | | | [place] [address] | + + + | Home Phone | | + + + | Preferred Language | Unknown | + + + | Marital Status | | + + + | Bahai Affiliation | Unknown | + + + | Race | Unknown | + + + | Ethnic Group | Unknown | + + + Author + + + | Author | [facility] | | | and Arielana | + + + | Organization | [facility] | | | and [...] , [place] | | | | | [address] | | + + + + + | Ritchie Ozuna | ECON | Unknown | | + + + + + Care Team Providers + +------+ + | Care Repairer Resistance Welding Machines Name | Role | Phone | + [...] Lab Order | | 2018 | | [facility] | | | | | | [facility] [address] | | | | | | [address] [facility], | | | | | | [place] [address] | | | | | | [phone] | | | +--------+ + + + [...]
--- OUTSIDE RECORDS SUMMARY | ~2019-11-22 | XMS | Encounter Summary ---
Demographics + + + | Address | [address] | | | [place] [address] | + + + | Home Phone | | + + + | Preferred Language | Unknown | + + + | Marital Status | | + + + | Church Affiliation | Unknown | + + + | Race | Unknown | + + + | Ethnic Group | Unknown | + + + Author + + + | Author | [facility] | | | and [place]el[place] | + + + | Organization | [facility] | | | [...] , [place] | | | | | [address] | | + + + + + | Ritchie Ozuna | ECON | Unknown | | + + + + + Care Team Providers + +------+ + | Care Sewer Contractor Name | Role | Phone | + +------+ + | Bernard David DO | PCP | | + +------+ + Encounter Details +--------+ + + + + | Date | Type | Department | Care Team | Description | +--------+ + + + + | 05/28/ | Abstract | [facility] | [facility] | | | 2017 | | [facility] | | | | | | MEDICAL [facility] [address] | | | | | | [address] [place], | | | | | | [place] [address] | | | | | | [phone] | | | +--------+ + + + [...]
--- OUTSIDE RECORDS SUMMARY | ~2019-11-22 | XMS | Encounter Summary ---
Demographics + + + | Address | [address] | | | [place] [address] | + + + | Home Phone | | + + + | Preferred Language | Unknown | + + + | Marital Status | | + + + | Congregation Affiliation | Unknown | + + + | Race | Unknown | + + + | Ethnic Group | Unknown | + + + Author + + + | Author | [facility] | | | and [place]el[place] | + + + | Organization | [facility] | | | and [place] [...] , [place] | | | | | [address] | | + + + + + | Ritchie Ozuna | ECON | Unknown | | + + + + + Care Team Providers + +------+ + | Care Silica Filter Operator Name | Role | Phone | [...] Diabetes Mellitus | | 2019 | | [facility] | E, DO [address] | Management (Diabetes | | | | MEDICAL CLINIC [address] | [place] | labs reminder) | | | | [facility], | [address] | | | | | [place] [address] | [phone] | | | | | [phone] | | | +--------+ + + + [...]
--- OUTSIDE RECORDS SUMMARY | ~2019-11-22 | XMS | Encounter Summary ---
Demographics + + + | Address | [address] | | | [place] [address] | + + + | Home Phone [...] | Author | [facility] | | | and [place]el[place] | + + + | Organization | [facility] | [...] , [place] | | | | | [address] | | + + + + + | Ritchie Ozuna | ECON | Unknown | | + + + + + Care Team Providers + +------+ + | Care Asphalt Raker Name | Role | Phone | + +------+ + | Bernard David DO | PCP | | + +------+ + Encounter Details +--------+ + + + + | Date | Type | Department | Care Team | Description | +--------+ + + + + | 10/29/ | Orders Only | [facility] | [facility] | | | 2017 | | CLINIC ULTRASOUND | MD Emery [address] | | | | | [address] | [address] | | | | | [address] [place], [place] | [place] [address] | | | | | [address] | [phone] | | | | | [phone] | | | +--------+ + + + [...] OB 14 + WEEKS | Routin | 10/29/2017 | | Results for this | | SINGLE OR FIRST | e | 2:21 PM | | procedure are in the | | GESTATION | | PDT | | results section. | + +--------+ + + + documented in this encounter Results US OB 14 + Week Singl or First Gestation (10/29/2017 2:21 PM PDT) + + | Specimen | + + | | + + + + + | Narrative | Performed At | + + + | For All Ultrasounds performed at [facility] : | | | The interpretation may be found under the Media tab within Chart | | | review of a patient's chart approximately 3 days after the exam date. | | | The report will be under the heading of [facility] Ultrasound If you | | | are not able to find the dictation under the media tab, please | | | contact the Pick Up Worker at [phone] crv [phone]. | | + + + + + | Procedure Note | + + | Rebel Holland Conversion - 02/04/2019 5:18 PM PDT For All Ultrasounds performed | | at [facility] : The interpretation may be found under the Media tab within | | Chart review ofa patient's chart approximately 3 days after the exam date. The | | reportwill be under the heading of [facility] Ultrasound If you are not able to find the | | dictation under the media tab, pleasecontact the Pick Up Worker at [phone] | | [phone]. | |If you are not able to find the dictation under the media tab, please | |contact the Pick Up Worker at [phone]. | | | + + documented in this encounter Visit Diagnoses Not on filedocumented in this encounter"
--- OUTSIDE RECORDS SUMMARY | ~2019-11-22 | XMS | Encounter Summary ---
Demographics + + + | Address | [address] | | | [place] [address] | + + + | Home Phone [...] | Author | [facility] | | | and [place]el[place] | + + + | Organization | [facility] | | | and [place] [...] [place], [place] | | | | | [address] | | + + + + + | Ritchie Ozuna | ECON | Unknown | | + + + + + Care Team Providers + +------+ + | Care Recyclable Materials Distributor Name | Role | Phone | + +------+ + PCP | Unavailable | + +------+ + Encounter Details +--------+ + + + + | Date | Type | Department | Care Team | Description | +--------+ + + + + | 06/07/ | Hospital [facility] | | | | | | CENTER [address] | | | | | | [place], [place] | | | | | | [address] | | | | | | [phone] | | | +--------+ + + + [...]
--- OUTSIDE RECORDS SUMMARY | ~2019-11-22 | XMS | Encounter Summary ---
Demographics + + + | Address | [address] | | | [place] [address] | + + + | Home Phone | | + + + | Preferred Language | Unknown | + + + | Marital Status | | + + + | Zoroastrianism Affiliation | Unknown | + + + | Race | Unknown | + + + | Ethnic Group | Unknown | + + + Author + + + | Author | [facility] | | | and [place] | + + + | Organization | [facility] | | | and [place] | + + + | Address | Unknown | + + + | Phone | Unavailable | + + + Support + + + + + | Name | Relationship | Address | Phone | + + + + + | iAme Rodrigues | ECON | [address] | | | | | , [place] | | | | | [address] | | + + + + + | Ritchie Ozuna | ECON | Unknown | | + + + + + Care Team Providers + +------+ + | Care Military Aircraft Designer Name | Role | Phone | + [...] Cold Symptoms | | 2017 | | [facility] | E, DO [address] | | | | | MEDICAL CLINIC [address] | [place], [place] | | | | | [address] [place], | [address] | | | | | [place] [address] | [phone] | | | | | [phone] | | | +--------+ + + + [...]
--- OUTSIDE RECORDS SUMMARY | ~2019-11-22 | XMS | Encounter Summary ---
Demographics + + + | Address | [address] | | | [place] [address] | + + + | Home Phone | | + + + | Preferred Language | Unknown | + + + | Marital Status | | + + + | Holiness Affiliation | Unknown | + + + | Race | Unknown | + + + | Ethnic Group | Unknown | + + + Author + + + | Author | [facility] | | | and Arielana | + + + | Organization | [facility] | | | and [...] [place] | | | | | [address] | | + + + + + | Ritchie Ozuna | ECON | Unknown | | + + + + + Care Team Providers + +------+ + | Care Barrel Polisher Inside Name | Role | Phone | + [...] | | [address] [place], | [address] | complication, | | | | [place] [address] | [phone] | without long-term | | | | [phone] | | current use of | | [...] | | | | | | insulin ([facility]) | | + +------+--------+ + + documented as of this encounter Visit Diagnoses + + | Diagnosis | + + | Controlled type 2 diabetes mellitus without complication, without long-term current | | use of insulin ([facility]) - Primary | + + documented in this encounter"
--- OUTSIDE RECORDS SUMMARY | ~2019-11-22 | XMS | Encounter Summary ---
Demographics + + + | Address | [address] | | | [place] [address] | + + + | Home Phone | | + + + | Preferred Language | Unknown | + + + | Marital Status | | + + + | Religion Affiliation | Unknown | + + + | Race | Unknown | + + + | Ethnic Group | Unknown | + + + Author + + + | Author | [facility] | | | and [place]el[place] | + + + | Organization | [facility] | | | and [place] [...] , [place] | | | | | [address] | | + + + + + | Ritchie Ozuna | ECON | Unknown | | + + + + + Care Team Providers + +------+ + | Care Oracle Adf Developer Name | Role | Phone | [...] [address] | | | | | [address] [place], [place] | [place] [address] | | | | | [address] | [phone] | | | | | [phone] | | | +--------+ + + + [...] + | For All Ultrasounds performed at [facility] : | | | The interpretation may be found under the Media tab within Chart | | | review of a patient's chart approximately 3 days after the exam date. | | | The report will be under the heading of [facility] Ultrasound If you | | | are not able to find the dictation under the media tab, please | | | contact the Gis Mapping Technician at [phone] dxi [phone]. | | + + + + + | Procedure Note | + + | Rebel Holland Conversion - 02/04/2019 5:18 PM PDT For All Ultrasounds performed | | at [facility] : The interpretation may be found under the Media tab within | | Chart review ofa patient's chart approximately 3 days after the exam date. The | | reportwill be under the heading of [facility] Ultrasound If you are not able to find the | | dictation under the media tab, pleasecontact the Gis Mapping Technician at [phone] | | [phone]. | |If you are not able to find the dictation under the media tab, please | |contact the Gis Mapping Technician at [phone] cjy [phone]. | | | + + documented in this encounter Visit Diagnoses Not on filedocumented in this encounter"
--- OUTSIDE RECORDS SUMMARY | ~2019-11-22 | XMS | Encounter Summary ---
Demographics + + + | Address | [address] | | | [place] [address] | + + + | Home Phone | | + + + | Preferred Language | Unknown | + + + | Marital Status | | + + + | Adventist Affiliation | Unknown | + + + | Race | Unknown | + + + | Ethnic Group | Unknown | + + + Author + + + | Author | [facility] | | | and Arielana | + + + | Organization | [facility] | | | and [...] , [place] | | | | | [address] | | + + + + + | Ritchie Ozuna | ECON | Unknown | | + + + + + Care Team Providers + +------+ + | Care External Relations Director Name | Role | Phone | + +------+ + | Benrard David DO | PCP | | + [...] [address] | | | | | [address] [place], [place] | [place] [address] | | | | | [address] | [phone] | | | | | [phone] | | | +--------+ + + + [...] + | For All Ultrasounds performed at [facility] : | | | The interpretation may be found under the Media tab within Chart | | | review of a patient's chart approximately 3 days after the exam date. | | | The report will be under the heading of [facility] Ultrasound If you | | | are not able to find the dictation under the media tab, please | | | contact the Weapons Designer at [phone] qys [phone]. | | + + + + + | Procedure Note | + + | Rebel Holland Conversion - 02/04/2019 5:18 PM PDT For All Ultrasounds performed | | at [facility] : The interpretation may be found under the Media tab within | | Chart review ofa patient's chart approximately 3 days after the exam date. The | | reportwill be under the heading of [facility] Ultrasound If you are not able to find the | | dictation under the media tab, pleasecontact the Weapons Designer at [phone] ext | | [phone]. | |If you are not able to find the dictation under the media tab, please | |contact the Weapons Designer at [phone] zek [phone]. | | | + + documented in this encounter Visit Diagnoses Not on filedocumented in this encounter"
--- OUTSIDE RECORDS SUMMARY | ~2019-11-22 | XMS | Encounter Summary ---
Demographics + + + | Address | [address] | | | [place] [address] | + + + | Home Phone | | + + + | Preferred Language | Unknown | + + + | Marital Status | | + + + | Rastafari Affiliation | Unknown | + + + | Race | Unknown | + + + | Ethnic Group | Unknown | + + + Author + + + | Author | [facility] | | | and Arielana | + + + | Organization | [facility] | | | and [...] [place], [place] | | | | | [address] | | + + + + + | Ritchie Ozuna | ECON | Unknown | | + + + + + Care Team Providers + +------+ + | Care Emissions Inspector Name | Role | Phone | + [...] | | | | | [address] [place] | | | | | [place] | [address] | | | | | [address] | [phone] | | | | | [phone] | | | | | | | Jean-Paul Magallanes MD | | | | | | [address] | | | | | | [place], [place] | | | | | | [address] | | | | | | | [...] 11/28/17451 by | | eral | Hand; ogxl-brn-xoeuji catheter | Reena Jones RN | Saran Braba, | | IV | system; 18 gauge, [...]
[2019-11-22] MEDS ORDERED: LABETALOL HCL300 MG PO (02:01)
[2019-11-22] MEDS ORDERED: METFORMIN HCL500 MG PO (02:01)
[2019-11-22] MEDS ORDERED: LEXAPRO5 MG PO (02:02)
--- NOTE | 2019-11-22 05:13 | NUR ---
PT TO ROOM 108 FROM ED. ABLE TO TRANSFER SELF FROM [facility]. TO TO VOID 300 ML CONCENTRATED YELLOW URINE. GAIT STEADY. BACK TO BED, JUANA WELL. DENIES PAIN. PRN ADMINISTERED FOR NAUSEA. IVF INFUSING. CPOX IN PLACE. SPO2 97% ON RA. ALERT AND ORIENTED X 4. PT NPO. ORIENTED TO ROOM AND NURSE CALL LIGHT. QUESTIONS ANSWERED. PT DENIES FURTHER NEEDS AT THIS TIME. CALL LIGTH IN REACH.
--- NOTE | 2019-11-22 07:24 | NUR ---
REPORT RECEIVED. PT LYING IN BED WITH CPOX IN PLACE. O2 AT 92% AND HR 72. LR AT 125 INFUSING. CALL LIGHT IN REACH.
--- NOTE | 2019-11-22 09:23 | NUR ---
PATIENT IS IN BED, RESTING, SAYS SHE AHS A HEADACHE, WILL REPORT TO NURSE, VITAL SIGNS AND INTAKE AND OUTPUT DOCUMENTED
[2019-11-22] MEDS ORDERED: ESCITALOPRAM OX20 MG PO (10:38)
[2019-11-22] MEDS ORDERED: VITAMIN D21250 MCG PO (10:41)
--- NOTE | 2019-11-22 11:00 | NUR ---
PT OFF FLOOR TO PROCEDURE.
--- NOTE | 2019-11-22 12:09 | NUR ---
PT ALERT, ORIENTED AND STATED SHE IS WAITING FOR SURGERY. BEGAN VISIT WITH PT AND M/S STAFF CAME TO GET PT READY-JUST RECEIVED CALL FROM [place]. GAVE BLESSING, WILL FOLLOW PT
--- NOTE | 2019-11-22 13:47 | NUR ---
11/22/19 1346 Karla Noyola 1249 PT ARRIVED IN PACU NON RESPONSIVE TO NOXIOUS STIMULI WITH OPA IN PLACED. CHIN LIFT HELD BY RN. 1256 PT REACTIVE. OPA REMOVED. 1300 PT AWAKE WITH NO C/O'S. 1315 C/O 6/10 ABD PAIN. ICE TO ABD. 1329 FENTANYL 50MCG GIVEN IVP FOR 6/10 ABD PAIN. ENCOURAGED COUGH, DEEP BREATHING. 1335 TAKING SIPS OF WATER. 1341 FENTANYL 50MCG GIVEN IVP FOR 6/10 ABD PAIN. 1345 OXYGEN DROPPED TO 88% ON RA. O2 AT 2L VIA NC PLACED WITH SATS INCREASING TO 93%.
--- NOTE | 2019-11-22 14:10 | NUR ---
PT ARRIVED TO FLOOR VIA BED. PT IS DROWSY BUT ORIENTED. REPORTS UPPER ABDOMINAL PAIN OF 7/10. ICE APPLIED. LAPSITES X4 CLEAN AND INTACT. SOME SHADOWING PRESENT. TRISTON DRAIN WITH SCANT AMOUNT OF SEROSANG DRAINGAGE. WATER PROVIDE.D DENIES NAUSEA. LR AT [address] 2L NC. CPOX WITH SATURATIONS AT 95%. VITALS TAKEN AND STABLE.
--- NOTE | 2019-11-22 15:13 | NUR ---
DRESSINGS, SAME PREVIOUS. NO CHANGES. SMALL AMOUNT OR SEROSANGE DRAIAGE IN TRISTON TUBE. PT REPORTS PAIN /10. DENEIS NAUSEA. CALL LIGHT IN REACH.
--- NOTE | 2019-11-22 16:32 | NUR ---
VITALS TAKEN AND STABLE. DRESSINGS SAME PREVIOUS. PAIN 5/10 PO NORCO ADMINISTERED. DENIES NAUSEA. CRACKERS PROVIDED WIHT PAIN MEDICAOTION. PT UP TO BATHROOM. VOIDED 525ML. LINENS REFRESHED. CALL LIGHT IN REACH.
--- NOTE | 2019-11-22 16:36 | EKG ---
[facility] [address] [place], [place] [address] Signed Normal sinus rhythm Normal ECG No previous ECGs available Confirmed by SHANTEL ZAVALA MD ([id number]) on 11/22/2019 4:36:09 PM Electronically Signed By: SHANTEL AZVALA MD 11/22/19 1636 PATIENT NAME: SARAH NI Electrocardiogram DATE OF : 83 PHYSICIAN: SHANTEL ZAVALA MD REPORT #: [id number] REPORT IS CONFIDENTIAL AND NOT TO BE RELEASED WITHOUT AUTHORIZATION
--- NOTE | 2019-11-22 16:52 | NUR ---
FAXED A REFERRAL TO DR BELKIS RO IN [place] (GASTROENTEROLOGY) PER DR GALAVIZ REQUEST. CALLED TO VERIFY THAT THEY RECEIVED IT AND THEY HAVE. HIS NURSE WILL CALL ME IN THE MORNING WITH APPOINTMENT. I WILL ALSO SEND MORNING LABS AND COVID RESULTS WHEN THEY ARE RESULTED. FAX [phone]
--- NOTE | 2019-11-22 19:33 | NUR ---
REPORT RECEIVED FROM DAY SHIFT RN. PT LYING IN BED, ALERT AND ORIENTED. DENIES PAIN OR NAUSEA. IVF INFUSING. CPOX IN PLACE, SPO2 95% ON RA. ICE PACK FOR ABD AND FRESH WATER GIVEN. WHITE BOARD UPDATED. CALL LIGHT IN REACH.
--- NOTE | 2019-11-22 20:19 | NUR ---
PRN GIVEN FOR RUQ PAIN. SUGAR FREE JELLO AND PUDDING PROVIDED. IV ABX INFUSING.
--- NOTE | 2019-11-22 21:50 | NUR ---
IV ABX HUNG. SCHEDULED MEDS ADMINISTERED. INSULIN PER SLIDING SCALE. FRESH ICE PACK AND ICE WATER PROVIDED. PT EATING A TURKEY SANDWICH. DENIES NAUSEA. PAIN IS TOLERABLE.
--- NOTE | 2019-11-22 23:09 | NUR ---
IV ABX COMPLETE. MAINTENANCE FLUIDS INFUSING. ORAL PRN GIVEN FOR ABD PAIN. ENOC DRAIN WITH 30 ML SS DRAINED. UMBILICUS AND ENOC DRAIN DRESSING CHANGED. REMAINING DRESSING CDI. BOWEL TONES ACTIVE. PT PASSING GAS. DENIES NAUSEA. JUANA REG DIET. SCD'S AND CPOX IN PLACE.
--- NOTE | 2019-11-23 02:17 | NUR ---
PT UP TO BR WITH MINIMAL ASSIST. BACK TO BED, JUANA WELL. SCD'S IN PLACE. CPOX IN PLACE, HEART RATE 90'S. SPO2 95% ON RA. PT DENIES PAIN OR NAUSEA. IV ABX HUNG. FRESH ICE TO ABD.
--- NOTE | 2019-11-23 04:20 | NUR ---
PT RESTING IN BED WITH EYES CLOSED, NAD. CPOX IN PLACE. 93% ON RA, HR 80'S.
--- NOTE | 2019-11-23 06:20 | NUR ---
VS AND I&O COMPLETE. PT UP TO BR WITH MINIMAL ASSIST. BACK TO BED, JUANA WELL. PRN GIVEN FOR ABD PAIN. FRESH ICE TO ABD. SMALL AMOUNT OF SEROSANG DRAINAGE ON RUQ DRESSING. ENOC DRAIN EMPTIED OF 20 ML SEROSANG DRAINAGE. CPOX AND SCD'S IN PLACE. IVF INFUSING.
--- NOTE | 2019-11-23 07:20 | CONS ---
[facility] [address] [place], [place] [address] Signed DATE OF CONSULTATION: 11/22/2019 CHIEF COMPLAINT: Right upper quadrant abdominal pain. HISTORY OF PRESENT ILLNESS: Imelda is a 34-year-old obese diabetic female with 3 days of right upper quadrant abdominal pain, nausea, and diarrhea. She finally came to emergency room for evaluation. In the emergency room, her vital signs were fine, but she was tender in the right upper quadrant. White count was elevated. AST and ALT were elevated. Ultrasound shows the gallbladder wall is normal at 2 mm, but the common bile duct is a little dilated at 9 mm and there are two 7 mm mobile stones in her gallbladder. She appears to have a fatty liver. She also has a stone in the right kidney. I have been asked to admit her as a General Surgeon on-call. In the meantime, she has received IV fluids, Rocephin, and Flagyl. She said, overall she is much better this morning. PAST MEDICAL HISTORY: Includes hypertension, type 2 diabetes, and obesity. PAST SURGICAL HISTORY: Includes a . SOCIAL HISTORY: She does not smoke or drink. She is to A[place], . They have one son. She is a adjunct faculty for medical terminology. Joleen Sanchez, is her primary care provider. FAMILY HISTORY: Dad had 5 different cancers including colon cancer. REVIEW OF SYSTEMS: Imelda had 10 systems reviewed and no new findings. ALLERGIES: None. MEDICATIONS: 1. Labetalol 300 mg p.o. b.i.d. 2. Metformin 500 mg p.o. b.i.d. 3. Lexapro 5 mg p.o. daily. PHYSICAL EXAMINATION: VITAL SIGNS: Her blood pressure is 158/96, heart rate 89, respiratory rate 18, temperature is 97.7. She is 97% on room air. She is 5 feet 6 inches, 127 kg. Electronically Signed By: EDILIA QUINONES MD 11/23/19 0720 PATIENT NAME: IMELDA NI CONSULTATION DATE OF : 83 REPORT #: [id number] PHYSICIAN: EDILIA QUINONES MD PCP: JOLEEN SANCHEZ PA-C REPORT IS CONFIDENTIAL AND NOT TO BE RELEASED WITHOUT AUTHORIZATION [facility] [address] [place] [id number] Signed GENERAL: Imelda is a 34-year-old female, who is lying supine in her hospital bed. She is obvious a good historian. She does not appear systemically ill or toxic. She is not jaundiced. LUNGS: Generally clear to auscultation bilaterally. HEART: Regular rate and rhythm. ABDOMEN: Obese, mildly firm throughout, but nontender. LABORATORY DATA: Her white blood count is 12.7, hemoglobin 13, neutrophils 72, total bilirubin 0.7, AST 218, ALT 241, alkaline phosphatase 159, albumin 3.9, lipase 16, beta HCG negative. RADIOGRAPHIC STUDIES: Ultrasound of right upper quadrant is reviewed. Her gallbladder wall is 2 mm thick. The common bile duct is a little dilated at 9 mm. The gallbladder shows two 7 mm mobile stones. There is also a fairly large stone in the right lower pole of the kidney. She appears to have some fatty liver. ASSESSMENT AND PLAN: Imelda is a 34-year-old, obese female, who presents with what appears to be symptomatic cholelithiasis, cholecystitis. She has been admitted, given IV fluids, antibiotics, and pain control. She also probably has fatty liver; that may actually be why her liver function tests were elevated more so than the gallbladder itself. I reviewed with Imelda, the location and function of the gallbladder. We discussed laparoscopic versus open cholecystectomy. We did review the expected intraop and postop course. There is risk of surgery including, but not limited to bleeding, infection, scarring, change in contour of the skin, damage to bowel, damage to main bile duct, incisional hernias, and other unforeseen comorbidities. She has expressed understanding and would like to proceed with surgery, including a needle biopsy of her liver. MD NOELLE Ayala/MODL /[id number] cc: Joleen Sanchez Copies: Electronically Signed By: EDILIA QUINONES MD 11/23/19 0720 PATIENT NAME: IMELDA NI CONSULTATION DATE OF : 83 REPORT #: [id number] PHYSICIAN: EDILIA QUINONES MD PCP: JOLEEN SANCHEZ PA-C REPORT IS CONFIDENTIAL AND NOT TO BE RELEASED WITHOUT AUTHORIZATION [address] [address] Signed ~ Electronically Signed By: EDILIA QUINONES MD 11/23/19 0720 PATIENT NAME: ZORAN NIN CONSULTATION DATE OF : 83 REPORT #: [id number] PHYSICIAN: EDILIA QUINONSE MD PCP: JOLEEN SANCHEZ PA-C REPORT IS CONFIDENTIAL AND NOT TO BE RELEASED WITHOUT AUTHORIZATION
--- NOTE | 2019-11-23 07:20 | OR ---
[facility] [address], [place] [address] Signed DATE OF OPERATION: 11/22/2019 SURGEON: Edilia Robbins MD PREOPERATIVE DIAGNOSES: 1. Etjuv-jj-fykyjvz cholecystitis. 2. Cholelithiasis. 3. Fatty liver. POSTOPERATIVE DIAGNOSES: 1. Wqrwg-nx-vorymhx cholecystitis. 2. Choledocholithiasis. 3. Fatty liver. PROCEDURES: 1. Laparoscopic cholecystectomy with intraoperative cholangiogram. 2. Needle biopsy, right lower liver. ESTIMATED BLOOD LOSS: Minimal. FINDINGS: Imelda clearly has fatty liver. The gallbladder was not particularly thickened, but it was edematous in the wall. The intraoperative cholangiogram showed a filling defect in the distal common bile duct, probably for 4-5 mm in diameter. We could not get contrast to flow around into the duodenum. We therefore placed a subhepatic drain across the area of the cystic duct. INDICATIONS: Imelda is a 34-year-old female, 5 feet 6 inches tall and 127 kg. She is known to be diabetic as well. For about three days, she has been having significant right upper quadrant abdominal pain with nausea and diarrhea. She finally came to the emergency room for evaluation. Her vital signs were unremarkable. She was not systemically ill or toxic. She was not jaundiced. However, she seemed to be tender in the right upper quadrant. White count was borderline high at 12.7. Total bilirubin was normal at 0.7, but the AST was up at 218, ALT was up at 241, alkaline phosphatase normal at 159, albumin good at 3.9, and lipase good at 16. Beta-hCG was negative. Ultrasound was performed, and she has a slightly dilated common bile duct at 9 mm. The wall is not particularly thickened at 2 mm. She seemed to have fatty liver on the ultrasound. There were two stuck mobile stones in the gallbladder about 7 mm in diameter. She also Electronically Signed By: EDILIA ROBBINS MD 11/23/19 0720 PATIENT NAME: IMELDA NI OPERATIVE REPORT DATE OF : 83 REPORT #: [id number] PHYSICIAN: EDILIA ROBBINS MD PCP: JOLEEN JENKINS PA-C REPORT IS CONFIDENTIAL AND NOT TO BE RELEASED WITHOUT AUTHORIZATION [facility] [address], [place] [address] Signed has a stone in the inferior pole of the right kidney. I have been asked to admit her overnight. She has been on Rocephin and Flagyl along with some Dilaudid. She said this morning she felt much better. I explained to her the above findings in detail. We discussed the location and function of the gallbladder. I explained to her that 20% of people here in [place] have gallstones, 20% of that groups end up having symptoms and needs the gallbladder out, and then 3-7 percent of the final group will need an ERCP because of the stone in the common bile duct. She understands there is risk to that surgery including, but not limited to bleeding, infection, scarring, change in contour of the skin, damage to bowel, damage to main bile duct, incisional hernias, and other unforeseen comorbidities. She had expressed understanding and wished to proceed. PROCEDURE NOTE: I met with Imelda in the preop area. She told me she had time to call her , Jaspal. After this, she was taken into the operating room and placed in the supine position under general endotracheal tube anesthesia. She was already on preoperative antibiotics. SCDs were utilized. She was then prepped and draped in the usual sterile fashion. All trocars were placed in their usual positions under direct visualization of camera without difficulty. The findings were as above. Pictures were taken throughout for photodocumentation. The gallbladder was grasped and elevated in the right upper quadrant. The triangle of Calot and the cystic artery were dissected free. A clip had been placed across the cystic artery and it was divided. The intraoperative cholangiocatheter was inserted into the cystic duct. The intraoperative cholangiogram showed a mildly dilated common bile duct. There was a 4-5 mm filling defect moving around her distal common bile duct. Nevertheless, we could not get any contrast to flow into the duodenum itself. We secured the cystic duct stump with three sequential clips. The gallbladder was then removed from the gallbladder fossa with the help of the cautery and placed into an EndoCatch bag. The right upper quadrant was irrigated and suctioned out until clear. We placed a #7 flat [place] drain in the area of the cystic duct and brought it out through the right most lateral 5 mm subcostal trocar site. This was held in place at the level skin with a 2-0 nylon suture. We then took our biopsy of the right lobe of the liver with a core needle. Hemostasis was easily achieved with the cautery. We then used our laparoscopic suturing device to pass 0-Vicryl suture on either side of the fascia of the subxiphoid trocar site. This was tied down to close this fascia primarily. The gas was then allowed to escape and all remaining trocars were removed along with the gallbladder. The gallbladder was opened on the back table by our circulating nurse. It did confirm the two stones as on the ultrasound. She also has a fairly significant cholesterolosis. After this, we closed the fascia of the supraumbilical trocar site with interrupted simple and nhtpcy-wl-saryx 0-Vicryl sutures. Local anesthetic was injected into all trocar sites. Each trocar site was irrigated and suctioned out until clear. The skin and dermis of each trocar site were closed with interrupted 3-0 subcuticular Monocryl sutures. Dry gauze and tape were applied to all Electronically Signed By: EDILIA ROBBINS MD 11/23/19 0720 PATIENT NAME: IMELDA NI OPERATIVE REPORT DATE OF : 83 REPORT #: [id number] PHYSICIAN: EDILIA ROBBINS MD PCP: JOLEEN JENKINS PA-C REPORT IS CONFIDENTIAL AND NOT TO BE RELEASED WITHOUT AUTHORIZATION [facility] [address] [place] [id number] Signed incisions. Bulb suction was applied to her drain. Imelda was then awakened from anesthesia, extubated in the OR, and taken to the recovery room in stable condition. Edilia Robbins MD ALB/MODL /[id number] cc: Edilia Robbins MD Copies: EDILIA ROBBINS MD ~ Electronically Signed By: EDILIA ROBBINS MD 11/23/19 0720 PATIENT NAME: IMELDA NI OPERATIVE REPORT DATE OF : [birth year] REPORT #: [id number] PHYSICIAN: EDILIA ROBBINS MD PCP: JOLEEN JENKINS PA-C REPORT IS CONFIDENTIAL AND NOT TO BE RELEASED WITHOUT AUTHORIZATION
--- NOTE | 2019-11-23 07:45 | NUR ---
REPORT RECEIVED. PT IN BED AWAKE. DENIES PAIN. DR QUINONES IN TO ROUND. PLAN FOR DISCHARGE DISCUSSED. BREAKFAST PROVIDED. CALL LIGHT IN REACH.
[2019-11-23] MEDS ORDERED: ALPRAZOLAM0.5 MG PO (08:30)
[2019-11-23] MEDS ORDERED: NORCO 5-325 TA1 EACH PO (09:10)
--- NOTE | 2019-11-23 10:56 | NUR ---
Preparing for dc. Denies needs to go home. Feels she will be safe as she will dc to home with her spouse and son. Will follow up for stone removal with Dr. Moore.
--- NOTE | 2019-11-23 11:27 | NUR ---
DISHCARGE INSTRUCTIONS WERE PROVIDED. QUESTIONS ANSWERED. TRISTON DRAIN EDUCATIO NAND DEMONSTRATION PROVIDED. PT FEELS COMFORTABLE EMTYING AND DOCUMENTING OUTPUT. S/SX OF INFECTION DISCUSSED. IV DC'D AND WNL.
--- NOTE | 2019-11-23 11:56 | NUR ---
PT RESTING IN BED, QUIETLY WITH LIGHTS AND TV OFF. PT IS WAITING FOR DC, HER WILL BE COMING FOR HER. PAIN IS AT1-2. PT STATED SHE IS FEELING MUCH BETTER, AND IS LOOKING FORWARD TO GETTING HOME. REMINDED PT TO NOT OVER DUE THINGS, FOLLOW DC INSTRUCTIONS-PT ACKNOWLEDGED. PT REQUESTED PRAYER
--- NOTE | 2019-11-23 17:27 | PATH ---
[facility] [address], [place] [address] Signed SPECIMEN(S): A GALLBLADDER WITH STONES SPECIMEN(S): B LIVER NEEDLE BIOPSY SPECIMEN SOURCE: A. GALLBLADDER WITH STONES B. LIVER NEEDLE BIOPSY CLINICAL HISTORY: Cholelithiasis. Fatty liver. FINAL PATHOLOGIC DIAGNOSIS: A. Gallbladder, cholecystectomy: - Chronic cholecystitis with cholesterolosis. - Cholelithiasis with cystic duct obstruction. B. Liver, needle biopsy: - Mild steatohepatitis with mild perisinusoidal fibrosis. - Evidence of chronic low grade biliary obstruction, favor secondary to cholelithiasis. - See comment. COMMENT: Sections of the liver biopsy demonstrate predominantly large droplet macrovesicular steatosis (70%) with foci of lobular necroinflammation and hepatocyte ballooning. The portal tracts have a mixed inflammatory cell infiltrate with neutrophils, eosinophils and lymphocytes. The bile ducts are normal in number but show evidence of mild injury. Trichrome and reticulin stains demonstrate mild, zone 3, perisinusoidal fibrosis. Ely's hyaline is not seen. No abnormal iron accumulation is seen with iron stain and no evidence of alpha 1 antitrypsin disease is seen with PAF/D stain. 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 Clinical correlation required. As part of [employer]' Quality Improvement Program, this case was reviewed by another member of our pathology staff. NRT:AMB:cml:C2NR MICROSCOPIC EXAMINATION: Histologic sections of all submitted blocks are examined by light microscopy. These findings, together with the gross examination, support the pathologic diagnosis. PATIENT NAME: SARAH NI PATHOLOGY DATE OF : 83 REPORT #: [id number] PHYSICIAN: DAYANNA MCKINNEY PCP: JOLEEN JENKINS PA-C REPORT IS CONFIDENTIAL AND NOT TO BE RELEASED WITHOUT AUTHORIZATION [facility] [address], [place] [address] Signed GROSS DESCRIPTION: Two specimens are received in two containers, labeled "." A. The specimen, labeled "MH," and designated on the requisition "gallbladder with stones," is received in formalin and consists of Specimen: Previously opened gallbladder. Dimensions: 8.1 x 3.5 x 1.6 cm. Serosa: [place] to hemorrhagic and smooth. Cystic Duct: Obstructed with calculi. Calculi: Black-brown, gritty to friable (0.9 x 0.5 x 0.2 cm). Mucosa: [place] with yellow stippling. Wall thickness: 0.4-0.8 cm. Lymph node: No pericystic lymph nodes are grossly identified. Additional: None. Rock Worker sections are submitted in cassette (A1). B. The specimen, labeled "MH," and designated on the requisition "liver biopsy," is received in formalin and consists of one core of pink-conley tissue (1.5 cm in length x less than 0.1 cm in diameter). The specimen is inked blue. The tissue is submitted entirely in cassette (B1). AC (under the direct supervision of a pathologist) The Gross Description was prepared using a voice recognition system. The report was reviewed for accuracy; however, sound-alike word errors, addition and/or deletions may occur. If there is any question about this report, please contact Client Services. PERFORMING LABORATORY: The technical component was performed by [facility], [address] [place] [id number] (Electrical And Instrument Technician: Kathleen Simpson MD; CLIA# [id number]). Professional interpretation was performed by [employer] [facility], [facility], [address] [place] [id number] (CLIA# [id number]). Diagnostician: Nancy Lemons MD Pathologist Electronically Signed 11/23/2019 Copies: ~ PATIENT NAME: SARAH NI PATHOLOGY DATE OF : 83 REPORT #: [id number] PHYSICIAN: DAYANNA PATHOLOGY PCP: OJLEEN JENKINS PA-C REPORT IS CONFIDENTIAL AND NOT TO BE RELEASED WITHOUT AUTHORIZATION
--- NOTE | 2019-11-24 07:46 | DS ---
[facility] [address], [place] [address] Signed ADMISSION DATE: 11/22/2019 DISCHARGE DATE: 11/23/2019 FINAL DIAGNOSES: 1. Vjcej-jc-rcguhsb cholecystitis. 2. Cholelithiasis. 3. Choledocholithiasis x1. 4. Fatty liver. PROCEDURES: 1. Laparoscopic cholecystectomy with intraoperative cholangiogram. 2. Right lobe liver needle biopsy. HISTORY OF PRESENT ILLNESS: Imelda is a 34-year-old, obese, diabetic female, who presented with 3 days of right upper quadrant abdominal pain and nausea and diarrhea. In the emergency room, her white count was borderline, but her AST and ALT were elevated. However, the total bilirubin was normal along with the alkaline phosphatase. Lipase was normal. Beta-hCG was negative. Her coronavirus was negative. She had an ultrasound performed and the gallbladder wall only 2 mm in thickness. However, she had two 7 mm mobile stones in her gallbladder. Common bile duct was a little dilated at 9 mm. She also has a stone in the inferior pole of the right kidney. Consequently, I have been asked to admit her as a general surgeon on-call. HOSPITAL COURSE: Imelda was admitted as above and started on Rocephin and Flagyl. We took her to the operating room later that day for her laparoscopic cholecystectomy with intraoperative cholangiogram. It looks like she has a 4 to 5 mm filling defect in her distal common bile duct. We could not get the contrast to flow into the duodenum. Indeed, her common bile duct is a little dilated. Therefore, we left to drain across the area the cystic duct. We also performed a needle biopsy of the right lobe of the liver. Those results of course are still pending. We kept to rest overnight and this morning her labs are still pending. However, she looks and feels much better. She has thin serosanguineous fluid out of her drain. She has been tolerating diet. Her pain is resolved and she looks and feels much better. I did review with Imelda via [employer] the location of function of the gallbladder. We discussed cholelithiasis in detail. 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 I did explain to her the location of this retained common bile duct stone. In the meantime, we have made arrangements for her to have an outpatient ERCP. We have forwarded all of our information to Dr. Carlos Hamilton in [place], [place]. Hopefully, he will be able to get that done here in a few days. However, in the meantime, we are going to be discharging Imelda to home with her Electronically Signed By: EDILIA QUINONES MD 11/24/19 0746 PATIENT NAME: IMELDA NI DISCHARGE SUMMARY DATE OF : 83 REPORT #: [id number] PHYSICIAN: EDILIA QUINONES MD PCP: JOLEEN JENKINS PA-C REPORT IS CONFIDENTIAL AND NOT TO BE RELEASED WITHOUT AUTHORIZATION [facility] [address], [place] [address]. DISCHARGE PLANS AND MEDICATIONS: Imelda will be discharged home with a prescription for hydrocodone 5/325, 1 to 2 tablets p.o. q.4 to 6 hours p.r.n. for pain. We will dispense #30 tablets with no refills. We will discontinue the Rocephin and Flagyl at discharge. She will follow a low fat diet. She should not do any heavy pushing, pulling, or lifting over about 20 pounds. She will record the drain output each day. She is to follow up with Dr. Carlos Hamilton here in the next few days and in a few days after that, she will follow up in my office and I will remove the drain and we will assess her at that time. She should be back to work here within about 7 to 10 days. She has expressed understanding and agrees to above plan. Edilia Quinones MD ALB/MODL /[id number] cc: Chart Filed Incomplete ANAY Grewal MD Copies: CHART FILED INCOMPLETE EDILIA QUINONES MD ~ Electronically Signed By: EDILIA QUINONES MD 11/24/19 0746 PATIENT NAME: IMELDA NI DISCHARGE SUMMARY DATE OF : 83 REPORT #: [id number] PHYSICIAN: EDILIA QUINONES MD PCP: JOLEEN JENKINS PA-C REPORT IS CONFIDENTIAL AND NOT TO BE RELEASED WITHOUT AUTHORIZATION
== END 2019-11-23 11:45 | disposition home or self-care (01) ==
LOC: ED 01:35 → MS 01:36
PROVIDERS: ADMIT Colon & Rectal Surgery
PROC: BF13YZZ Fluoroscopy of Gallbladder and Bile Ducts using Other Contrast (ICD-10-PCS; 2019-11-22)
PROC: 0FB13ZX Excision of Right Lobe Liver, Percutaneous Approach, Diagnostic (ICD-10-PCS; 2019-11-22)
PROC: 0FT44ZZ Resection of Gallbladder, Percutaneous Endoscopic Approach (ICD-10-PCS; principal; 2019-11-22 11:30)
DX: K80.12 Calculus of gallbladder with acute and chronic cholecystitis without obstruction (principal); K80.51 Calculus of bile duct without cholangitis or cholecystitis with obstruction; K75.81 Nonalcoholic steatohepatitis (NASH); K74.0 Hepatic fibrosis; I10 Essential (primary) hypertension; E11.9 Type 2 diabetes mellitus without complications; E66.9 Obesity, unspecified; Z68.42 Body mass index [BMI] 45.0-49.9, adult; Z79.899 Other long term (current) drug therapy; Z79.84 Long term (current) use of oral hypoglycemic drugs
CPT/HCPCS: 00790; 36415; 74300; 76705; 80053; 81001; 83690; 83735; 84100; 84703; 85025; 85610; 93005; 93010; 94760; 94762; 96361; 96366; 96367; 96372; 96374; 96375; 96376; 99285-25; C9113; G0378; J0696; J1100; J1170; J1650; J1815; J1885; J2001; J2405; J2704; J3010; J7030; J7121; Q9967; U0002